=== PATIENT | male | born 1940 | race Caucasian/White ===

== ENCOUNTER 2019-05-02 14:22 | Inpatient (IN) | payer MEDICARE ==
[2019-05-02 15:42] LABS: Anion Gap 14 mmol/L (10-20); BUN (Urea Nitrogen) 41 mg/dL (8.4-25.7); Calc. Creatinine Clearance 0 mL/min (70-130); Calcium 9.3 mg/dL (7.8-10.44); Carbon Dioxide 29 mmol/L (23-31); Chloride 100 mmol/L (98-107); Estimated GFR-MDRD 35; Glucose 127 mg/dL (83-110); Sodium 139 mmol/L (136-145)
--- NOTE | 2019-05-02 15:54 | PDOC.HHP ---
Hospitalist HPI - History of Present Illness Syncope History of Present Illness: Patient is a 78 year old male with PMH CAD, CABG, paroxysmal atrial fibrillation on xarelto, systolic CHF chronic w/ EF 40%, CKD III, AVR w/ porcine valve for aortic stenosis and history of CVA, DM 2 on insulin pump w/ DM nephropathy, neuropathy and retinopathy who presented to ED as transfer from [facility] for syncope. Patient reports 2-3 times sudden syncope with variable prodrome in last few months. He was in the bathroom this AM and suddenly collapsed, does not remember episode and reports sometimes he loses consciousness during syncopal episodes and sometimes he does not. Today he believes he may have lost consciousness. No chest pain, no palpitations, denies shortness of breath around time of episode, he did vomit however. He has a history of orthostatic hypotension for 6 months or so but is usually asymptomatic, he reports has only begun to worsen last few days. He reports he has developed a global weakness over last 3-6 months which is getting so bad that he cannot even make it to the bathroom. Normally can get around with only using a walker, but gradually came to be walker dependant, and now walker is not stopping these episodes. No recent medication changes. He was admitted in January for possible seizure which was found to be hypoglycemia, he Had chemical stress test 2-3 years ago, and patient believes they were negative. He has atrial fibrillation, is on baby ASA and xarelto. Saw his heart doctor a few months ago, does not remember if had any testing, fell and broke pelvis before able to go back for follow up and hasnt seen since. Has insulin pump. Reports lower PO intake recently. Patient on xarelto and ASA for afib/valve replacement. Had diarrhea on Saturday x 1 episode. In ED in [place], troponin 0.4, Cr 2.32 which is above baseline. L hip XR without fractures performed for hip pain. Sugars in 180s this AM. CT brain unremarkable. Positive orthostatics in [facility]. EKG without acute ischemic changes. FOBT ordered for blood crusted stool reported by ED doc on conversation , no obvious large volume GI bleed observed. [facility] [place] physicians service consulted for admission. Outpatient doctors: Dr Watt cardiology, Dr Rose (sp?) diabetes doctor, Dr Couch is foot doctor. Recently had a callus debrided which has become a chronic wound managed by wound care. He reports frequent bleeding from that would and also from a wound on R arm which has a pressure dressing on. ED Course: EKG junctional rhythm rate 65 with retrograde conduction, incomplete RBBB, no acute ST findings Hospitalist ROS - Review of Systems Constitutional: reports: fever. denies: chills Eyes: denies: pain, vision change ENT: denies: nose discharge, throat pain Respiratory: denies: cough, shortness of breath Cardiovascular: denies: chest pain, palpitations, orthopnea Gastrointestinal: reports: nausea, vomiting. denies: abdominal pain Genitourinary: denies: dysuria, frequency Skin: denies: rash, lesions Neurological: reports: weakness. denies: numbness, incoordination, seizures All other systems reviewed; all pertinent +/- noted in HPI/Subj - Exam General Appearance: NAD, awake alert Eye: PERRL, anicteric sclera ENT: normocephalic atraumatic, moist mucosa Neck: supple, no JVD Heart: RRR, no murmur, no gallops, no rubs Respiratory: CTAB, no wheezes, no rales, no ronchi Gastrointestinal: soft, non-tender, non-distended, no guarding Extremities: no cyanosis, no clubbing, no edema Skin: no lesions, no rashes Neurological: cranial nerve grossly intact, normal sensation to touch, no weakness, no focal deficits Musculoskeletal: normal tone, generalized weakness Psychiatric: normal affect, normal behavior, A&O x 3 Hospitalist Results - Labs Result Diagrams: 05/02/19 15:11 Lab results: Sodium 139 mmol/L (136-145) 05/02/19 15:11 Potassium 4.0 mmol/L (3.5-5.1) 05/02/19 15:11 Chloride 100 mmol/L (98-107) 05/02/19 15:11 Carbon Dioxide 29 mmol/L (23-31) 05/02/19 15:11 BUN 41 mg/dL (8.4-25.7) H 05/02/19 15:11 Creatinine 1.85 mg/dL (0.7-1.3) H 05/02/19 15:11 Glucose 127 mg/dL (83-110) H 05/02/19 15:11 Calcium 9.3 mg/dL (7.8-10.44) 05/02/19 15:11 Hospitalist H&P A/P - Plan Plan: Patient is a 78 year old male with PMH CAD, CABG, paroxysmal atrial fibrillation on xarelto, systolic CHF chronic w/ EF 40%, CKD III, AVR w/ porcine valve for aortic stenosis and history of CVA, DM 2 on insulin pump w/ DM nephropathy, neuropathy and retinopathy who presented to ED as transfer from [facility] for syncope. # fall/syncope in setting of extensive cardaic history and chronic orthostatic hypotension - seems to have different types of syncope with frequent falls, some with a prodrome and some withoout, today no prodrome but witness to fall told patient he appeared awake and conscious the whole time. this seems a bit more likely symptomatic orthostasis/vasovagal syncope, however cardiac causes should be ruled out. - admit to telemetry, trend troponin, consult cardiology Dr Watt or covering physician - continue home meds as appropriate once med rec complete, ASA and statin continued now, eliquis to be changed to lovenox in case procedure needed - repeat orthostatics, consider florinef etc if cardiac workup negative # history of AVR - noted, consult cardiology, eliquis to be switched to lovenox # type 2 DM - start moderate dose SSI and 15 units lantus qHS (home dose is 20 units), increase as needed, would perhaps be better to stay away from insulin pump but if patient wants to use it can d/c SSI # MARIA TERESA on CKDIII - improved with IVF, trend BMP # history of CVA - noted, continue antiplatelet and anticoagulation, no focal deficits observed # diabetic foot wound - bleeding/oozing in ED, no signs of infection, consult wound care nursing # RUE wound - consult wound care nursing, put picture in chart when dressing changed # CAD - continue ASA and statin, resume rest as appropriate once med rec complete # atrial fibrillation - rate controlled, treat as above, EKG reported as junctional, cardiology consulted # possible GI bleed - monitor stool characteristics, PPI started, FOBT ordered in ED, GI consult may be needed if evidence here supports bleeding, paitent in ASA and anticoagulation # debility, worsening weakness - PT, OT, ST, nutrition consulted, case management consult in case therapy recommends SNF or rehab, follow up B12, TSH, other routine labs, UA ordered and pending code status - discussed with patient and son, son is a medical collections in [place]. continue full code, update family with significant information plan - admit to telemetry, consult cardiology, follow up orthostatics and other studies ordered, monotor for arrhtyhmia, hypoglycemia, BP abnormalities which may be worsening debility
[2019-05-02 16:14] LABS: CKMB 1.6 ng/mL (0-6.6)
[2019-05-02] MEDS ORDERED: Promethazine HCl 12.5 MG in Sodium Chloride 0.9% 50 ML IVPB PRN (16:19)
[2019-05-02] MEDS ORDERED: Morphine 2 MG/ML SYRINGE SLOW IVP PRN (16:19)
[2019-05-02] MEDS ORDERED: Ondansetron PF 4 MG/2 ML Vial IVP PRN (16:19)
[2019-05-02] MEDS ORDERED: hydrALAZINE 20 MG/ML VIAL SLOW IVP PRN (16:19)
[2019-05-02] MEDS ORDERED: cloNIDine 0.1 MG TAB PO PRN (16:19)
[2019-05-02] MEDS ORDERED: Acetaminophen 325 MG TAB PO PRN (16:21)
[2019-05-02] MEDS ORDERED: Bisacodyl 10 MG SUPP PR PRN (16:21)
[2019-05-02] MEDS ORDERED: Bisacodyl 5 MG TAB PO PRN (16:21)
[2019-05-02] MEDS ORDERED: HYDROcodone/Acetaminophen 5/325 mg Tablet PO PRN (16:21)
[2019-05-02] MEDS ORDERED: HumaLOG 300 UNITS/3 ML VIAL SC PRN (17:43)
[2019-05-02] MEDS ORDERED: Dextrose 50% Abboject 50 ML SYRINGE SLOW IVP PRN (17:43)
[2019-05-02] MEDS ORDERED: Dextrose 5% in Water 1,000 ML IV PRN (17:43)
[2019-05-02 18:49] LABS: Troponin I 0.012 ng/mL (< 0.028)
[2019-05-02] MEDS: Senokot S 8.6-50 MG TAB PO SCH (21:25)
[2019-05-02] MEDS: Gabapentin 300 MG CAP PO SCH (21:25)
[2019-05-02] MEDS: Atorvastatin Calcium 40 MG TAB PO SCH (21:25)
[2019-05-02] MEDS: Insulin Glargine 15 UNITS in Pre-Filled Syringe 1 EACH SC SCH (21:26)
[2019-05-02] MEDS ORDERED: Enoxaparin Sodium 80 MG/0.8 ML SYRINGE SC SCH (23:15)
[2019-05-02 23:19] LABS: Troponin I 0.012 ng/mL (< 0.028)
[2019-05-03 04:57] LABS: #Eosinphils 0.1 thou/uL (0.0-0.7); #Lymphocytes 1.5 thou/uL (1.20-3.40); #Monocytes 0.8 thou/uL (0.11-0.59); #Neutrophils 5.1 thou/uL (1.40-6.50); %Basophils 0.2 % (0.0-1.0); %Eosinophils 1.5 % (0.0-10.0); %Lymphocytes 19.8 % (21.0-51.0); %Monocytes 10.6 % (0.0-10.0); Hemoglobin 10.9 g/dL (14.0-18.0); Mean Corpuscular HGB CONC 33.7 g/dL (32.0-36.0); Mean Corpuscular Hemoglobin 32.4 pg (27.0-31.0); Mean Corpuscular Volume 96.1 fL (78.0-98.0); Mean Platelet Volume 7.7 fL (7.4-10.4); Platelet Count 150 thou/uL (130-400); Red Blood Cell (RBC) Count 3.37 mill/uL (4.70-6.10); White Blood Cell (WBC) Count 7.6 thou/uL (4.8-10.8)
[2019-05-03 05:04] LABS: Anion Gap 12 mmol/L (10-20); BUN (Urea Nitrogen) 39 mg/dL (8.4-25.7); Calc. Creatinine Clearance 37 mL/min (70-130); Calcium 8.9 mg/dL (7.8-10.44); Carbon Dioxide 27 mmol/L (23-31); Chloride 103 mmol/L (98-107); Estimated GFR-MDRD 39; Glucose 166 mg/dL (83-110); Magnesium 2.2 mg/dL (1.6-2.6); Sodium 138 mmol/L (136-145)
[2019-05-03 05:09] LABS: Troponin I 0.022 ng/mL (< 0.028)
[2019-05-03 05:30] LABS: Thyroid Stimulating Hormone 1.4956 uIU/mL (0.35-4.94)
[2019-05-03] MEDS ORDERED: Enoxaparin Sodium 80 MG/0.8 ML SYRINGE SC SCH (09:00)
[2019-05-03] MEDS: Aspirin 81 mg Enteric Coated Tablet PO SCH (09:13)
[2019-05-03] MEDS: Senokot S 8.6-50 MG TAB PO SCH ×2 (09:13→20:22)
[2019-05-03] MEDS: Gabapentin 300 MG CAP PO SCH ×2 (09:13→20:22)
[2019-05-03 12:52] LABS: Bacteria/HPF None Seen HPF (None Seen); Bilirubin Negative (Negative); Blood, Urine Negative (Negative); Clarity Clear (Clear); Glucose, Urine (Dipstick) Normal (Negative); Leukocyte Negative Leu/uL (Negative); Nitrite Negative (Negative); Protein, Urine (Dipstick) Negative (Neg-Trace); Squamous Epithelial 0-3 HPF (0-3); Urobilinogen Normal mg/dL (Less than 2); WBC/HPF 0-3 HPF (0-3)
[2019-05-03 12:57] LABS: Urine Culture Reflex No No
[2019-05-03] MEDS: Sodium Chloride 0.9% 1,000 ML IV SCH (15:10)
--- NOTE | 2019-05-03 17:09 | PDOC.HOSPP ---
- Subjective Encounter Date: 05/03/19 Encounter Time: 17:07 Subjective: Patient seen and examined for Syncope. No CP/SOB or palpitations. No new complaints. No overnight events - Objective Vital Signs & Weight: Vital Signs (12 hours) Temp Pulse Pulse Pulse Resp BP BP 05/03/19 10:26 67 75 110/62 88/54 L 05/03/19 08:00 99.2 F 69 16 BP Pulse Ox 05/03/19 10:26 05/03/19 08:00 113/57 L 97 Weight Weight 165 lb I&O: 05/02/19 05/03/19 05/04/19 06:59 06:59 06:59 Intake Total 690 Balance 690 Result Diagrams: 05/03/19 04:33 05/03/19 04:33 Additional Labs: Accuchecks 05/03/19 05/03/19 12:02 06:24 POC Glucose 99 142 H EKG Reviewed by me: Yes (Tele SR) Hospitalist ROS - Review of Systems Respiratory: denies: cough, dry, shortness of breath, hemoptysis, SOB with excertion, pleuritic pain, sputum, wheezing, other Cardiovascular: denies: chest pain, palpitations, orthopnea, paroxysmal noc. dyspnea, edema, light headedness, other - Medication Medications: Active Medications Generic Name Dose Route Start Last Admin Trade Name Rolando PRN Reason Stop Dose Admin Aspirin 81 mg 05/03/19 09:00 05/03/19 09:13 Ecotrin PO 81 mg DAILY ASHLY Administration Atorvastatin Calcium 40 mg 05/02/19 21:00 05/02/19 21:25 Lipitor PO 40 mg HS ASHLY Administration Gabapentin 300 mg 05/02/19 21:00 05/03/19 09:13 Neurontin PO 300 mg BID ASHLY Administration Insulin Glargine 15 units/ 0.15 mls @ 0 mls/hr 05/02/19 21:00 05/02/19 21:26 Miscellaneous Medication SC Not Given HS ASHLY Sodium Chloride 1,000 mls @ 50 mls/hr 05/03/19 14:15 05/03/19 15:10 Normal Saline 0.9% IV 1,000 mls .Q20H ASHLY Administration Pantoprazole Sodium 40 mg 05/03/19 09:00 05/03/19 09:13 Protonix PO 40 mg DAILY ASHLY Administration Senna/Docusate Sodium 1 tab 05/02/19 21:00 05/03/19 09:13 Senokot S PO 1 tab BID ASHLY Administration - Exam General Appearance: NAD Neck: no JVD Heart: RRR, no gallops, no rubs, normal peripheral pulses Respiratory: CTAB, no rales, no ronchi, normal chest expansion Gastrointestinal: soft, non-tender, non-distended, normal bowel sounds Extremities: no edema Psychiatric: normal affect, A&O x 3 Hosp A/P - Plan DVT proph w/lovenox Syncope/fall due to Orthostatic hypotension MARIA TERESA on CKD 3 Chronic Anemia Type 2 GA DM2 - on Insulin pump h/o Diabetic neuropathy/nephropathy/retinopathy CAD Par Afib - on Xarelto at home h/o porcine AVR PLAN: Amlodipine dced Hold Coreg Await Echo/Carotid Gentle IV hydration Reduce Lovenox to daily Add Midodrine Updated son (Narcotics Detective) - [phone]
[2019-05-03] MEDS: Midodrine HCl 5 MG TAB PO SCH (20:22)
[2019-05-03] MEDS: Atorvastatin Calcium 40 MG TAB PO SCH (20:22)
--- NOTE | 2019-05-03 21:10 | CON ---
DATE OF CONSULTATION: PRIMARY CARE PHYSICIAN: Unknown. This patient is seen by Dr. Scruggs in the past. PRIMARY CITY MAIL CARRIER: Dr. Watt. SOCIETY REPORTER: Dr. York. ARCHIVES SPECIALIST: Dr. Couch. REASON FOR CARDIOLOGY CONSULT: Syncopal episode and elevated troponin. HISTORY OF PRESENT ILLNESS: Mr. Barnes is a 78-year-old male with significant history of coronary artery disease with CABG; paroxysmal atrial fibrillation, on Xarelto; chronic systolic heart failure with EF 40%; stage 3 CKD; AVR with porcine valve for aortic valve stenosis; history of CVA, type 2 diabetes with insulin pump and diabetes nephropathy and neuropathy and retinopathy. The patient presented to the emergency department for status post syncopal episode in the bathroom around 7 o'clock this morning. When he went to bathroom after that he cannot recall at all the event. He had previous syncopal episode in January 2019 in the bathroom, he fell, and he broke his right pelvic. According to the patient, he has a syncopal episode or near-syncopal episode at least every 2 or 3 weeks. However, he has not seen any supplies packer or his primary care doctor for the reason. Prior to this event, he denied chest pain, heaviness, tightness, dizziness, lightheadedness, or any other cardiac complaints. He has insulin-dependent diabetes. His blood glucose has been 50 to 200. According to patient, the patient had a stress test done by the patient's primary supplies packer about 2 or 3 years ago, which was negative per patient. He has been on Xarelto and aspirin for history of atrial fibrillation. At this moment, the patient denies any chest pain, heaviness, tightness, or any other cardiac complaints. The patient has had echocardiogram done today with EF of 45% to 50%, grade 1 diastolic dysfunction, moderate ERA, mild mitral valve regurgitation, moderate to severe tricuspid regurgitation, and mild pulmonic regurgitation, and moderately dilated left atrium. PATIENT MEDICAL HISTORY: 1. Paroxysmal atrial fibrillation with Xarelto. 2. Systolic heart failure. 3. CKD, stage 3. 4. Status post AVR with porcine valve. 5. History of CVA. 6. Insulin-dependent diabetes. 7. Diabetes nephropathy, neuropathy, and retinopathy. 8. History of CAD, status post CABG. PAST SURGICAL HISTORY: CABG and aortic valve replacement. FAMILY HISTORY: Noncontributory. SOCIAL HISTORY: He is a . He is living in assisted living. He uses a walker; however, since January, he was getting weaker. He has not moved around well. He has 2 children, who live well. He denies EtOH, tobacco, or illicit drug abuse. He drinks 2 cups of coffee. He does not do exercise. ALLERGIES: HE IS ALLERGIC TO SULFA AND PREDNISONE. HOME MEDICATIONS: 1. Aspirin 81 mg once a day. 2. Lasix 60 mg once a day. 3. Amlodipine 5 mg once a day. 4. Multivitamin once a day. 5. Glucosamine 500 mg once a day. 6. Biotin 2500 mcg once a day. 7. Humalog, insulin pump. 8. Xarelto 15 mg once a day. 9. Tylenol 650 mg every 6 hours as needed. 10. Atorvastatin 40 mg once a day. 11. Spironolactone 12.5 mg once a day. 12. Zofran 4 mg every 6 hours. 13. Colace 250 as needed. 14. Carvedilol 3.125 mg twice a day. 15. CoQ10 100 mg once a day. 16. Magnesium 500 mg once a day. 17. Lantus 60 units at night. REVIEW OF SYSTEMS: Twelve-point review of systems negative unless otherwise mentioned in the HPI. PHYSICAL EXAMINATION: VITAL SIGNS: Blood pressure 88/54, temperature 99.2, pulse is 69, respiratory rate 16, O2 saturation 97% on room air. GENERAL: The patient is alert and oriented x4, not in acute distress. HEENT: Head, normocephalic and atraumatic. EYES: Extraocular muscle movement intact. ENT and mouth, oral and nasal mucosa moist without lesion. NECK: Supple. Normal range of motion. No JVD. RESPIRATORY: Clear to auscultate bilaterally, but diminished at the bases. No wheezing, rales, or rhonchi. CARDIOVASCULAR: Regular rate and rhythm. Normal S1 and S2. There is no S3 or S4. No significant murmur or hives are noted. 2+ pulses in the bilateral upper and lower extremities. No edema in the lower extremities. Carotid pulses are present without bruit or thrill. ABDOMEN: Soft, nontender. No mass to palpitate. Bowel sounds are present. SKIN: Warm and dry. No lesion, rash, or erythema noted. MUSCULOSKELETAL: The patient is able to move all extremities without difficulty in the bed. The patient denies claudication. NEUROLOGIC: The patient is alert and oriented x4, nonfocal. PSYCHIATRIC: The patient's mood is appropriate. PAST MEDICAL AND SURGICAL HISTORY: 12-lead EKG shows sinus rhythm. However, on the telemetry record, questionable type 1 or type 2 second-degree AV block. WBC 7.6, hemoglobin 10.9, hematocrit 32.4, platelets 150. Sodium 138, potassium 4, BUN 39, creatinine 1.70, glucose 166, magnesium 2.2. CK-MB is 1.6. Troponin is 0.039, 0.012, and 0.022. TSH 1.4956. Vitamin B12 600. Brain CT shows no evidence of intracranial hemorrhage or mass effect. Hip x-ray shows degenerative change, but no displacement fracture at this location. ASSESSMENT AND PLAN: 1. Status post syncopal episode. The patient's telemetry record shows questionable type 1 or type 2 second-degree AV block. We would like to continue to monitor, and if the patient shows any significant EKG change, which indicated to the patient possibly the patient is going to have a pacemaker during this hospital admission. We would like to continue to monitor on the telemetry. 2. Coronary artery disease, status post coronary artery bypass graft. He is asymptomatic at this moment. The patient is on aspirin 81 mg once a day and atorvastatin. He is not on beta john at this moment due to low heart rate, and he is not on ASMITA inhibitor at this moment due to history of chronic kidney disease. Once the patient's vital signs become stable, possible beta john is going to be started. 3. Paroxysmal atrial fibrillation. He is in sinus rhythm at this moment. He is on aspirin 81 mg once a day. He is not on Xarelto at this moment due to status post fall. He is on Lovenox twice a day at this moment. 4. Chronic systolic heart failure with ejection fraction 45% to 50%. The patient's condition is stable at this moment with room air. We would like to continue to monitor. He is not on diuretic, beta-john, ASMITA inhibitor, or ARB at this moment. 5. Insulin-dependent diabetes. He is on before meals and at bedtime blood glucose check with sliding scale insulin. 6. History of cerebrovascular accident. 7. Aortic valve replacement. 8. Chronic kidney disease, stage 3, which is stable at this moment. Thank you very much for Cardiology Service to participate in the care of this patient. We will follow along the patient's care team and make further recommendations as appropriate. Job ID: [id number]
[2019-05-03] MEDS: Insulin Glargine 15 UNITS in Pre-Filled Syringe 1 EACH SC SCH (23:55)
--- NOTE | 2019-05-04 01:08 | CON ---
DATE OF CONSULTATION: 05/03/2019 REASON FOR CONSULTATION: Incomplete bladder emptying. HISTORY: Mr. Barnes is a 78-year-old gentleman with significant coronary artery disease and cardiac disease including prior coronary artery bypass graft, paroxysmal atrial fibrillation, and aortic valve replacement with porcine valve. He has been having problems with syncopal episodes. He was admitted to the hospital after having a syncopal episode in the bathroom on the day of admission, 05/02/2019. During his hospitalization, he has been noted to have incomplete bladder emptying. Bladder scan after voiding is demonstrated approximately 300 mL in the bladder. The patient denies any chronic urologic problem. He states he normally voids well. He does state that he can only void well when he is sitting on the toilet. He denies pain on urination. Denies any hematuria. Denies any prior urologic history. He has not seen urologist in the past. He does have insulin-dependent diabetes. PAST MEDICAL HISTORY: Coronary artery disease, aortic valve disease, insulin-dependent diabetes mellitus, chronic kidney disease, diabetic foot wound, atrial fibrillation, syncopal episodes. PAST SURGICAL HISTORY: Coronary artery bypass graft and aortic valve replacement. SOCIAL HISTORY: He lives in assisted living facility. He typically uses a walker, although, this has been more difficult recently. Denies alcohol or drug use. His son is a ice hockey coach in [place]. ALLERGIES: SULFA AND PREDNISONE. MEDICATIONS: At home, 1. Aspirin. 2. Lasix. 3. Amlodipine. 4. Multivitamins. 5. Glucosamine. 6. Biotin. 7. Humalog. 8. Xarelto. 9. Tylenol. 10. Atorvastatin. 11. Spironolactone. 12. Zofran. 13. Colace. 14. Carvedilol. 15. CoQ10. 16. Magnesium. 17. Lantus insulin at night. REVIEW OF SYSTEMS: RESPIRATORY: Denies shortness of breath. CARDIOVASCULAR: Denies chest pain or palpitations. GASTROINTESTINAL: He does have occasional constipation. Denies bloody stools. GENITOURINARY: Please see history of present illness. NEUROLOGIC: History of stroke in the past. No recent stroke symptoms. PHYSICAL EXAMINATION: GENERAL: He is awake and alert, in no distress at this time. HEENT: Normocephalic, atraumatic. NECK: No masses noted. CHEST: Clear to auscultation. CARDIOVASCULAR: Normal rhythm. ABDOMEN: Soft, nontender. No palpable masses. No peritoneal signs. GENITOURINARY: Penis without lesions. Scrotum, no lesions. Testicles, palpably normal. Digital rectal exam, the patient refused. EXTREMITIES: No edema noted. IMPRESSION: Mr. Barnes is a 78-year-old gentleman with a significant cardiac history. He was noted to have incomplete bladder emptying on postvoid residual determination by ultrasound today. I have discussed with him the Lala catheter to improve bladder emptying. He has flatly refused to allow a Lala catheter to be replaced. He is in no significant discomfort and denies any bothersome urinary symptoms at this time. He may have chronic incomplete bladder emptying accounting for his lack of symptoms at this time. Regardless, the patient refuses a Lala catheter and he is not a good candidate for alpha blockers based on a syncopal episodes. RECOMMENDATIONS: If the patient develops retention, I requested Lala catheter will be placed. Otherwise, he has refused Lala catheterization despite my recommendation. Job ID: [id number]
[2019-05-04 04:52] LABS: #Eosinphils 0.2 thou/uL (0.0-0.7); #Lymphocytes 1.7 thou/uL (1.20-3.40); #Monocytes 0.6 thou/uL (0.11-0.59); %Basophils 0.5 % (0.0-1.0); %Eosinophils 3.1 % (0.0-10.0); %Lymphocytes 26.1 % (21.0-51.0); %Monocytes 9.5 % (0.0-10.0); %Neutrophils 60.8 % (42.0-75.0); Hemoglobin 10.5 g/dL (14.0-18.0); Mean Corpuscular HGB CONC 32.7 g/dL (32.0-36.0); Mean Corpuscular Hemoglobin 32.2 pg (27.0-31.0); Mean Corpuscular Volume 98.7 fL (78.0-98.0); Mean Platelet Volume 8.9 fL (7.4-10.4); Platelet Count 125 thou/uL (130-400); RBC Distribution Width 12.1 % (11.5-14.5); Red Blood Cell (RBC) Count 3.27 mill/uL (4.70-6.10); White Blood Cell (WBC) Count 6.6 thou/uL (4.8-10.8)
[2019-05-04 05:02] LABS: Anion Gap 9 mmol/L (10-20); BUN (Urea Nitrogen) 35 mg/dL (8.4-25.7); Calc. Creatinine Clearance 40 mL/min (70-130); Calcium 8.4 mg/dL (7.8-10.44); Carbon Dioxide 27 mmol/L (23-31); Chloride 108 mmol/L (98-107); Estimated GFR-MDRD 41; Glucose 101 mg/dL (83-110); Magnesium 2.1 mg/dL (1.6-2.6); Potassium 3.8 mmol/L (3.5-5.1); Sodium 140 mmol/L (136-145)
--- NOTE | 2019-05-04 09:02 | PDOC.HOSPP ---
- Subjective Encounter Date: 05/04/19 Encounter Time: 09:00 Subjective: Patient seen and examined for Syncope. Aury huerta was called due to syncope while having a BM on commode. Hit left side on head on wall. No other injuries. Awake at this time. No new complaints. No overnight events - Objective Vital Signs & Weight: Vital Signs (12 hours) Temp Pulse Resp BP BP BP BP 05/04/19 05:15 93/50 L 89/43 L 132/65 05/04/19 03:40 98.6 F 68 18 122/62 Pulse Ox 05/04/19 05:15 05/04/19 03:40 97 Weight Weight 168 lb 12.8 oz I&O: 05/03/19 05/04/19 05/05/19 06:59 06:59 06:59 Intake Total 690 2960 Output Total 450 Balance 690 2510 Result Diagrams: 05/04/19 04:07 05/04/19 04:07 Additional Labs: Accuchecks 05/04/19 05/04/19 05/03/19 08:53 05:18 20:50 POC Glucose 120 H 90 167 H 05/03/19 05/03/19 18:06 12:02 POC Glucose 154 H 99 EKG Reviewed by me: Yes (Tele SR) Hospitalist ROS - Review of Systems Respiratory: denies: cough, dry, shortness of breath, hemoptysis, SOB with excertion, pleuritic pain, sputum, wheezing, other Cardiovascular: denies: chest pain, palpitations, orthopnea, paroxysmal noc. dyspnea, edema, light headedness, other - Medication Medications: Active Medications Generic Name Dose Route Start Last Admin Trade Name Rolando PRN Reason Stop Dose Admin Aspirin 81 mg 05/03/19 09:00 05/03/19 09:13 Ecotrin PO 81 mg DAILY ASHLY Administration Atorvastatin Calcium 40 mg 05/02/19 21:00 05/03/19 20:22 Lipitor PO 40 mg HS ASHLY Administration Gabapentin 300 mg 05/02/19 21:00 05/03/19 20:22 Neurontin PO 300 mg BID ASHLY Administration Insulin Glargine 15 units/ 0.15 mls @ 0 mls/hr 05/02/19 21:00 05/03/19 23:55 Miscellaneous Medication SC Not Given HS ASHLY Sodium Chloride 1,000 mls @ 50 mls/hr 05/03/19 14:15 05/03/19 15:10 Normal Saline 0.9% IV 1,000 mls .Q20H ASHLY Administration Midodrine 5 mg 05/03/19 21:00 05/03/19 20:22 Proamatine PO 5 mg BID ASHLY Administration Pantoprazole Sodium 40 mg 05/03/19 09:00 05/03/19 09:13 Protonix PO 40 mg DAILY ASHLY Administration Senna/Docusate Sodium 1 tab 05/02/19 21:00 05/03/19 20:22 Senokot S PO 1 tab BID ASHLY Administration - Exam General Appearance: NAD, awake alert Neck: no JVD Heart: RRR, no gallops, no rubs, normal peripheral pulses Respiratory: CTAB, no wheezes, no rales, no ronchi Gastrointestinal: soft, non-tender, non-distended, normal bowel sounds Extremities: no cyanosis, no clubbing, no edema Neurological: normal sensation to touch, no focal deficits, no new deficit Psychiatric: normal affect, A&O x 3 Hosp A/P - Plan DVT proph w/lovenox Syncope/fall due to Orthostatic hypotension - Amlodipine dced. Started on Midodrine Code green due to syncope today MARIA TERESA on CKD 3 - improving with IVF Chronic Anemia Thrombocytopenia Type 2 [place] DM2 - on Insulin pump h/o Diabetic neuropathy/nephropathy/retinopathy CAD Par Afib - on Xarelto at home h/o porcine AVR PLAN: Coreg on hold Echo EF 45-50% with diastolic dysfunction Await Carotid Gentle IV hydration Cont Lovenox daily Cont Midodrine Will update Patient's son (Vice President Of Software Engineering) - [phone]
[2019-05-04] MEDS: Aspirin 81 mg Enteric Coated Tablet PO SCH (09:19)
[2019-05-04] MEDS: Enoxaparin Sodium 80 MG/0.8 ML SYRINGE SC SCH (09:19)
[2019-05-04] MEDS: Midodrine HCl 5 MG TAB PO SCH ×2 (09:20→20:25)
[2019-05-04] MEDS: Senokot S 8.6-50 MG TAB PO SCH ×2 (09:20→20:25)
[2019-05-04] MEDS: Gabapentin 300 MG CAP PO SCH ×2 (09:20→20:25)
[2019-05-04] MEDS: Sodium Chloride 0.9% 1,000 ML IV SCH (09:21)
--- NOTE | 2019-05-04 10:24 | ULT ---
BILATERAL CAROTID DUPLEX ULTRASOUND: Date: 05/04/19 HISTORY: Syncope. FINDINGS: Real-time color Doppler evaluation of the right and left carotid systems was performed. This showed s ome mild plaque formation on the right, slightly more prominent plaque at the origin of the left inte rnal carotid artery. On the right side, peak systolic velocities of the common carotid were 70 cm/second. Internal carotid velocities were 111 cm/second and external carotid velocities were 49 cm/second. On the left side, peak systolic velocities of the common carotid were 87 cm/second. Internal carotid velocities were 78 cm/second and external carotid velocities were 73 cm/second. Vertebral flow was antegrade bilaterally. IMPRESSION: No evidence of hemodynamically significant stenosis of either internal carotid artery. POS: NAN
--- NOTE | 2019-05-04 10:52 | CT ---
CT BRAIN NONCONTRAST: DATE: 05/04/2019. HISTORY: A 78-year-old male status post acute head trauma from fall. FINDINGS: There is no midline shift or any other mass effect. There is no evidence of acute intracranial hemor rhage, large cortical infarct, obstructive hydrocephalus, or extraaxial fluid collection. The calvar ium is intact. There is diffuse parenchymal volume loss. There are low attenuation areas in the whi te matter. These are nonspecific, but in a patient of this age, they are probably chronic ischemic w byron matter changes due to microvascular atherosclerosis. There are small bilateral old infarctions in the cerebellar hemispheres. There is no interval change overall since 05/02/2019. IMPRESSION: 1) No acute intracranial findings. 2) Involutional changes and chronic ischemic white matter changes. 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 margaret Pang POS: NAN
--- NOTE | 2019-05-04 12:18 | CON ---
DATE OF CONSULTATION: 05/03/2019 ADDENDUM: Please refer to the notes already dictated by my nurse practitioner, Kendal Velasquez. INDICATION FOR CONSULTATION: A 78-year-old with multiple syncopal episodes. HISTORY OF PRESENT ILLNESS: This 78-year-old gentleman, who has a history of coronary artery disease, bypass surgery. He has history of atrial fibrillation in the past. He has been on Xarelto, also has an ejection fraction about 40% to 45% with chronic kidney disease. He has undergone aortic valve replacement. He has had CVAs in the past. He also has insulin, he is on insulin pump. He has had multiple medical problems, but recently has been falling apparently and had syncopal episodes. He has had some abrasions and some lacerations due to the falls. He says in the last couple months, he has fallen several times. His EKG shows a possible second-degree heart block type 1, at times might appears almost to be second degree heart block type 2, but in view of the fact that the patient continues to have symptoms with even if it was second degree heart block type 1, he may need to undergo pacemaker insertion. I did discuss this with the patient and he says if it will help him, then he is agreeable. We will continue to monitor him overnight. We will make that decision tomorrow whether or not he actually needs to have a pacemaker. He has been followed in the past by Dr. Scruggs, but also recently he has been seen by Dr. Jadiel Watt, [facility]. In the emergency room, he did have EKGs, which appeared to be a junctional rhythm with a heart rate in the 60s, but no acute ST-segment changes noted. I believe otherwise, he has been relatively stable from a cardiac standpoint. His laboratory data does not give any indication that he has suffered a myocardial infarction. Cardiac enzymes are unremarkable. His first set was 0.039, but since that time, his cardiac enzymes have been completely unremarkable. His creatinine is 1.7 with a BUN of 39. He did not have any evidence of severe anemia, but is moderately anemic with a hemoglobin of 10.9. At this time, please refer the notes. I have discussed this patient with my nurse practitioner. I would agree with the assessment and plan. 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 Given that fact, he may need certainly to undergo pacing therapy, but given his ejection fraction has decreased, we may need to consider a Bi-V pacemaker in this gentleman. Certainly, we will need to discuss this with Dr. Scruggs tomorrow morning and the patient may opt to also follow up with his primary solar pv installer, Dr. Watt for further evaluation. I would agree with the assessment and plan by my nurse practitioner. I have reviewed her notes and I will agree with her assessment. Job ID: [id number]
[2019-05-04] MEDS: HumaLOG 300 UNITS/3 ML VIAL SC PRN ×2 (18:22→21:29)
[2019-05-04 18:31] VITALS: BMI 26.3
[2019-05-04] MEDS: Atorvastatin Calcium 40 MG TAB PO SCH (20:25)
[2019-05-04] MEDS: Insulin Glargine 15 UNITS in Pre-Filled Syringe 1 EACH SC SCH (21:28)
[2019-05-05 04:33] LABS: #Eosinphils 0.2 thou/uL (0.0-0.7); #Lymphocytes 1.5 thou/uL (1.20-3.40); #Monocytes 0.6 thou/uL (0.11-0.59); #Neutrophils 4.4 thou/uL (1.40-6.50); %Basophils 0.2 % (0.0-1.0); %Eosinophils 2.6 % (0.0-10.0); %Monocytes 9.4 % (0.0-10.0); %Neutrophils 64.8 % (42.0-75.0); Hemoglobin 9.8 g/dL (14.0-18.0); Mean Corpuscular HGB CONC 33.8 g/dL (32.0-36.0); Mean Corpuscular Hemoglobin 32.7 pg (27.0-31.0); Mean Corpuscular Volume 96.5 fL (78.0-98.0); Mean Platelet Volume 7.2 fL (7.4-10.4); Platelet Count 147 thou/uL (130-400); RBC Distribution Width 11.9 % (11.5-14.5); Red Blood Cell (RBC) Count 2.99 mill/uL (4.70-6.10); White Blood Cell (WBC) Count 6.7 thou/uL (4.8-10.8)
[2019-05-05 04:48] LABS: Anion Gap 9 mmol/L (10-20); BUN (Urea Nitrogen) 31 mg/dL (8.4-25.7); Calc. Creatinine Clearance 44 mL/min (70-130); Calcium 8.4 mg/dL (7.8-10.44); Carbon Dioxide 25 mmol/L (23-31); Chloride 107 mmol/L (98-107); Estimated GFR-MDRD 46; Glucose 197 mg/dL (83-110); Magnesium 1.9 mg/dL (1.6-2.6); Potassium 4.2 mmol/L (3.5-5.1); Sodium 137 mmol/L (136-145)
[2019-05-05] MEDS: Aspirin 81 mg Enteric Coated Tablet PO SCH (09:42)
[2019-05-05] MEDS: Midodrine HCl 5 MG TAB PO SCH (09:43)
[2019-05-05] MEDS: Senokot S 8.6-50 MG TAB PO SCH ×2 (09:44→21:52)
[2019-05-05] MEDS: Gabapentin 300 MG CAP PO SCH ×2 (09:44→21:52)
[2019-05-05] MEDS: Enoxaparin Sodium 80 MG/0.8 ML SYRINGE SC SCH (09:45)
[2019-05-05] MEDS: HumaLOG 300 UNITS/3 ML VIAL SC PRN ×2 (12:13→21:50)
--- NOTE | 2019-05-05 13:06 | PRG ---
DATE OF SERVICE: 05/05/2019 SUBJECTIVE: The patient is seen and examined at the bedside. He seems to be doing significantly better. He does not have much complaints to offer, except for the fact that when he gets up, his blood pressure drops. OBJECTIVE: VITAL SIGNS: Blood pressure is 171/72, pulse is 74, temperature is 98.3, respirations 20, and O2 saturation is 98% on room air. HEENT: His head is atraumatic and normocephalic. Eyes are PERRLA. Sclerae are nonicteric. Oral mucosa is moist. NECK: Supple. LUNGS: Clear. HEART: S1, S2, somewhat irregular. No S3. No S4. ABDOMEN: Soft, nontender, nondistended. EXTREMITIES: No clubbing, cyanosis, or edema. NEUROLOGICAL EXAMINATION: He is alert and oriented x4. There are no any motor or sensory deficits. LABORATORY DATA: White count of 6.7, hemoglobin 9.8, hematocrit 28.8, platelet count is 147. Normal electrolytes. BUN of 31, creatinine 1.48. Glycemia is ranging from 185 to 333, magnesium 1.9. Previous creatinine 1.63 and 1.7. IMPRESSION: 1. Syncopal episode due to orthostatic hypotension. This seems to be doing somewhat better on midodrine. Cardiology following. 2. Acute kidney injury on chronic kidney disease 3, with gentle hydration. 3. Chronic anemia. 4. Type 2 diabetes mellitus, uncontrolled. We will start him on 16 units of long-acting insulin with short-acting insulin before meals. His insulin pump is stopped. 5. Coronary artery disease, chronic, stable. 6. Paroxysmal atrial fibrillation. PLAN: Continue gentle hydration. Sales Recruiter does not think he needs any pacemaker at this point. We will continue his current regimen. His other medications are on hold. We will give him 16 units of long-acting insulin and since his blood pressure is up, I am going to stop his midodrine and start him back on carvedilol. Job ID: [id number]
[2019-05-05] MEDS ORDERED: Non-Formulary Item 1 EACH (Insulin Glargine,Hum.Rec.Anlog [Lantus Solostar] 16 UNIT) SC SCH (21:00)
[2019-05-05] MEDS: Insulin Glargine 16 UNITS in Pre-Filled Syringe 1 EACH SC SCH (21:50)
[2019-05-05] MEDS: Carvedilol 3.125 MG TAB PO SCH (21:52)
[2019-05-05] MEDS: Atorvastatin Calcium 40 MG TAB PO SCH (21:52)
[2019-05-06] MEDS: Carvedilol 3.125 MG TAB PO SCH (09:00)
[2019-05-06] MEDS: Senokot S 8.6-50 MG TAB PO SCH ×2 (09:00→21:20)
[2019-05-06] MEDS: Enoxaparin Sodium 80 MG/0.8 ML SYRINGE SC SCH (09:00)
[2019-05-06] MEDS: Gabapentin 300 MG CAP PO SCH ×2 (09:00→21:19)
[2019-05-06] MEDS: Aspirin 81 mg Enteric Coated Tablet PO SCH (09:00)
[2019-05-06] MEDS: HumaLOG 300 UNITS/3 ML VIAL SC PRN ×2 (13:39→18:09)
--- NOTE | 2019-05-06 14:16 | PRG ---
DATE OF SERVICE: 05/06/2019 SUBJECTIVE: The patient is seen and examined at the bedside. He does not have much complaints to offer except for blood pressure drops when he stands up and he feels dizzy. No chest pain. No shortness of breath. OBJECTIVE: VITAL SIGNS: Blood pressure is 100/55, pulse is 69, temperature is 97.7, respirations 16, and O2 saturation is 97% on room air. HEENT: His head is atraumatic and normocephalic. Eyes are PERRLA. Sclerae are nonicteric. Oral mucosa is moist. NECK: Supple. LUNGS: Breath sounds are diminished at both bases. HEART: S1 and S2 normal. No S3. No S4. ABDOMEN: Soft, nontender, and obese. EXTREMITIES: No clubbing, cyanosis, or edema. NEUROLOGIC: He follows my commands. He moves his all 4 extremities. His orthostatic changes, the patient drops to 86 systolic when he is standing up from 108/55. IMPRESSION AND PLAN: 1. Syncopal episode due to orthostatic hypotension. Midodrine was stopped. 2. Hypertension. The patient's Coreg was started this morning because of his blood pressure going up, but again, he has quite significant response and Coreg will be stopped completely. We will continue IV gentle hydration. 3. Acute kidney injury on chronic kidney disease, stage 3. 4. Chronic anemia. 5. Type 2 diabetes mellitus. The patient is started on 16 units of long-acting insulin and his glycemia is somewhat better today, we will continue that. Job ID: [id number]
[2019-05-06] MEDS: Sodium Chloride 0.9% 1,000 ML IV SCH ×4 (18:32→23:14)
[2019-05-06] MEDS: Atorvastatin Calcium 40 MG TAB PO SCH (21:19)
[2019-05-06] MEDS: Insulin Glargine 16 UNITS in Pre-Filled Syringe 1 EACH SC SCH (21:21)
[2019-05-07] MEDS: Senokot S 8.6-50 MG TAB PO SCH ×2 (09:18→20:29)
[2019-05-07] MEDS: Enoxaparin Sodium 80 MG/0.8 ML SYRINGE SC SCH (09:18)
[2019-05-07] MEDS: Gabapentin 300 MG CAP PO SCH ×2 (09:18→20:29)
[2019-05-07] MEDS: Aspirin 81 mg Enteric Coated Tablet PO SCH (09:18)
[2019-05-07 09:41] LABS: Chloride 112 mmol/L (98-107); Potassium 4.1 mmol/L (3.5-5.1); Sodium 140 mmol/L (136-145)
[2019-05-07 09:42] LABS: Calcium 8.2 mg/dL (7.8-10.44); Glucose 162 mg/dL (83-110)
[2019-05-07 09:44] LABS: Anion Gap 7 mmol/L (10-20); Carbon Dioxide 25 mmol/L (23-31)
[2019-05-07 09:45] LABS: Calc. Creatinine Clearance 54 mL/min (70-130); Estimated GFR-MDRD 56
[2019-05-07 09:46] LABS: BUN (Urea Nitrogen) 26 mg/dL (8.4-25.7)
[2019-05-07] MEDS: HumaLOG 300 UNITS/3 ML VIAL SC PRN ×2 (11:58→20:37)
--- NOTE | 2019-05-07 13:32 | PRG ---
DATE OF SERVICE: 05/07/2019 SUBJECTIVE: The patient is seen and examined at the bedside. He does not have much complaints to offer. OBJECTIVE: VITAL SIGNS: Blood pressure is 148/66, it drops to 95 systolic when he stands up. Temperature is 98.4, respirations 16, pulse is 87, O2 saturation is 97% on room air. HEENT: His head is atraumatic and normocephalic. Eyes are PERRLA. Sclerae are nonicteric. Oral mucosa is moist. LUNGS: Left lung decreased breath sounds from the bottom to two thirds, suspected fluid on this side. HEART: S1, S2, somewhat distant. No S3. No S4. ABDOMEN: Soft, nontender, nondistended. EXTREMITIES: 2+ peripheral edema. NEUROLOGICAL: He follows my commands. He moves all 4 extremities. LABORATORY DATA: Sodium 140, potassium 4.1, chloride 112, CO2 of 25, BUN 26, creatinine 1.24. Glycemia is ranging from 193-287. Calcium 8.2. IMPRESSION: 1. Syncopal episode due to orthostatic hypotension. The patient is still orthostatic despite of IV fluids we gave him. I am going to stop IV fluids. We will do the chest x-ray since his left lung sounds are very diminished. 2. Hypertension. The Coreg was stopped because the blood pressure improved and it stays in relatively good range when he is in sitting position or flat position. 3. Acute kidney injury on chronic kidney disease stage 3, improved. 4. Chronic anemia. 5. Type 2 diabetes mellitus, not controlled despite putting back on 16 units of long-acting insulin. He is still running above 200s most of the time. PLAN: Go up on his insulin to 25 units of long-acting insulin along with the sliding scale and short-acting insulin. Stop IV fluids and do chest x-ray. Job ID: [id number]
--- NOTE | 2019-05-07 13:54 | RAD ---
Portable chest: HISTORY: Decreased breath sounds on the left COMPARISON: 05/02/2019 FINDINGS:Left basilar opacification consistent with left effusion and left basilar atelectasis again noted. Postop changes in the left chest again noted. Right lung remains clear and unchanged. Postop sternotomy changes again noted. IMPRESSION:Left-sided effusion with left basilar atelectasis and postoperative changes in left chest. Findings appear stable.
[2019-05-07] MEDS: Atorvastatin Calcium 40 MG TAB PO SCH (20:29)
[2019-05-07] MEDS: Insulin Glargine 16 UNITS in Pre-Filled Syringe 1 EACH SC SCH (20:35)
[2019-05-08 04:37] LABS: Anion Gap 7 mmol/L (10-20); BUN (Urea Nitrogen) 24 mg/dL (8.4-25.7); Calc. Creatinine Clearance 51 mL/min (70-130); Calcium 8.7 mg/dL (7.8-10.44); Carbon Dioxide 28 mmol/L (23-31); Chloride 108 mmol/L (98-107); Estimated GFR-MDRD 52; Glucose 136 mg/dL (83-110); Potassium 3.9 mmol/L (3.5-5.1); Sodium 139 mmol/L (136-145)
[2019-05-08] MEDS: Senokot S 8.6-50 MG TAB PO SCH ×2 (09:07→20:56)
[2019-05-08] MEDS: Aspirin 81 mg Enteric Coated Tablet PO SCH (09:07)
[2019-05-08] MEDS: Gabapentin 300 MG CAP PO SCH ×2 (09:07→20:57)
[2019-05-08] MEDS: Enoxaparin Sodium 80 MG/0.8 ML SYRINGE SC SCH (09:07)
[2019-05-08] MEDS: HumaLOG 300 UNITS/3 ML VIAL SC PRN ×2 (10:50→17:34)
--- NOTE | 2019-05-08 11:36 | PRG ---
DATE OF SERVICE: 05/08/2019 SUBJECTIVE: The patient is seen and examined at bedside. He got his JONI hoses last night and he had orthostatic blood pressure checked and he still drops approximately 40 points when he gets from lying flat to standing position, but he is asymptomatic. OBJECTIVE: VITAL SIGNS: Blood pressure is 142/90, pulse is 84, temperature is 98, respirations 18, O2 saturation is 98% on room air. HEENT: His head is atraumatic and normocephalic. Eyes are PERRLA. Sclerae are nonicteric. Oral mucosa is moist. NECK: Supple. LUNGS: Breath sounds diminished at the left base. HEART: S1 and S2 normal. No S3. No S4. ABDOMEN: Soft, nontender, nondistended. EXTREMITIES: No clubbing, cyanosis, or edema. NEUROLOGIC: He follows my commands. He has some peripheral edema bilaterally. He moves his all 4 extremities. LABORATORY DATA: Glycemia is ranging from 130 to 280, sodium is 139, potassium 3.9, chloride 108, CO2 of 20, BUN 24, creatinine 1.32. IMPRESSION: 1. Syncopal episode due to orthostatic hypotension. The patient was rehydrated and he was given JONI hoses, but his blood pressure still drops. It has to be most likely related to his sympathetic system derangement. 2. Hypertension. 3. Acute kidney injury on chronic kidney disease, stage 3, improved. 4. Chronic anemia. 5. Type 2 diabetes mellitus. PLAN: We are going to discuss the case with Dr. Scruggs, who is currently seeing him for Cardiology evaluation and see what else we can do to get his orthostasis under control. His fluids were stopped and the chest x-ray showed left pleural effusion, but that is probably chronic from the previous operation he had. Job ID: [id number]
[2019-05-08] MEDS ORDERED: Fludrocortisone Acetate 0.1 MG TAB PO SCH (15:15)
[2019-05-08] MEDS: Atorvastatin Calcium 40 MG TAB PO SCH (20:56)
[2019-05-08] MEDS: Insulin Glargine 16 UNITS in Pre-Filled Syringe 1 EACH SC SCH (20:56)
[2019-05-09 07:21] LABS: Anion Gap 5 mmol/L (10-20); BUN (Urea Nitrogen) 30 mg/dL (8.4-25.7); Calc. Creatinine Clearance 49 mL/min (70-130); Calcium 8.7 mg/dL (7.8-10.44); Carbon Dioxide 29 mmol/L (23-31); Chloride 109 mmol/L (98-107); Estimated GFR-MDRD 50; Glucose 189 mg/dL (83-110); Potassium 4.2 mmol/L (3.5-5.1); Sodium 139 mmol/L (136-145)
[2019-05-09] MEDS: Enoxaparin Sodium 80 MG/0.8 ML SYRINGE SC SCH (09:35)
[2019-05-09] MEDS: Aspirin 81 mg Enteric Coated Tablet PO SCH (09:35)
[2019-05-09] MEDS: Senokot S 8.6-50 MG TAB PO SCH ×2 (09:36→20:26)
[2019-05-09] MEDS: Fludrocortisone Acetate 0.1 MG TAB PO SCH (09:36)
[2019-05-09] MEDS: Gabapentin 300 MG CAP PO SCH ×2 (09:36→20:26)
[2019-05-09] MEDS: HumaLOG 300 UNITS/3 ML VIAL SC PRN ×3 (11:20→20:27)
--- NOTE | 2019-05-09 12:16 | PRG ---
DATE OF SERVICE: 05/09/2019 SUBJECTIVE: The patient is seen and examined at the bedside. He does not have much complaints to offer. He noticed that he was asymptomatic when he had orthostatic changes done even though the blood pressure dropped to some extent. OBJECTIVE: VITAL SIGNS: Blood pressure is 138/73 supine, standing is 114/55 and sitting is 103/55. IMPRESSION: 1. Syncope due to orthostatic hypotension. The patient was started on mineralocorticoid yesterday and he had a second dose this morning. This seems to be working better than anything else done before. We will continue the same treatment. 2. Hypertension. 3. Acute kidney injury on chronic kidney disease, stage 3, improved. 4. Chronic anemia. 5. Type 2 diabetes mellitus. PLAN: We are going to postpone the discharge since he is improved, but not to the point that safety we can send him home on this regimen, but significant improvement was noticed since the time of introduction of his fludrocortisone. Job ID: [id number]
--- NOTE | 2019-05-09 16:14 | PDOC.CPN ---
- Subjective Date: 05/09/19 Time: 14:15 Interval history: No new issues. No new complaints. - Review of Systems General: denies: fever/chills, weight/appetite/sleep changes, night sweats, fatigue Respiratory: denies: cough, congestion, shortness of breath, exercise intolerance Cardiovascular: denies: chest pain, palpitation, edema, paroxysmal nocturnal dyspnea, orthopnea Gastrointestinal: denies: nausea, vomiting, diarrhea, constipation, abd pain, GI bleeding Musculoskeletal: denies: pain, tenderness, stiffness, swelling, arthritis/ arthralgias Neurological: denies: numbness, syncope, seizure, weakness - Objective Allergies/Adverse Reactions: Allergies Allergy/AdvReac Type Severity Reaction Status Date / Time Sulfa (Sulfonamide Allergy Intermediate Verified 02/04/19 12:39 Antibiotics) amlodipine Allergy Verified 05/04/19 08:11 prednisone Allergy Verified 02/04/19 12:39 Visit Medications: Current Medications Acetaminophen (Tylenol) 650 mg PO Q4H PRN PRN Reason: Headache/Fever/Mild Pain (1-3) Hydrocodone Bitart/Acetaminophen ([place] 5/325) 1 tab PO Q4H PRN PRN Reason: Moderate Pain (4-6) Aspirin (Ecotrin) 81 mg PO DAILY [facility] Last Admin: 05/09/19 09:35 Dose: 81 mg Atorvastatin Calcium (Lipitor) 40 mg PO HS [facility] Last Admin: 05/08/19 20:56 Dose: 40 mg Bisacodyl (Dulcolax) 10 mg PO DAILYPRN PRN PRN Reason: Constipation Bisacodyl (Dulcolax) 10 mg IA DAILYPRN PRN PRN Reason: Constipation Clonidine (Catapres) 0.1 mg PO Q4H PRN PRN Reason: SBP > 160 use second Dextrose/Water (Dextrose 50%) 25 gm SLOW IVP PRN PRN PRN Reason: Hypoglycemia Enoxaparin Sodium (Lovenox) 70 mg SC 0900 [facility] Last Admin: 05/09/19 09:35 Dose: 70 mg Fludrocortisone Acetate (Florinef) 0.1 mg PO DAILY [facility] Last Admin: 05/09/19 09:36 Dose: 0.1 mg Gabapentin (Neurontin) 300 mg PO BID [facility] Last Admin: 05/09/19 09:36 Dose: 300 mg Glucagon (Glucagon) 1 mg IM PRN PRN PRN Reason: Hypoglycemia Hydralazine HCl (Apresoline) 10 mg SLOW IVP Q6H PRN PRN Reason: SBP GREATER THAN 160 Dextrose/Water (D5w) 1,000 mls @ 0 mls/hr IV .Q0M PRN PRN Reason: Hypoglycemia Insulin Glargine 16 units/ (Miscellaneous Medication) 0.16 mls @ 0 mls/hr SC [facility] Last Admin: 05/08/19 20:56 Dose: 0.16 mls Insulin Human Lispro (Humalog) 0 units SC .BEDTIME SLIDING SC PRN PRN Reason: Bedtime Correctional Scale Last Admin: 05/07/19 20:37 Dose: 2 unit Insulin Human Lispro (Humalog) 0 units SC .MILD SLIDING SCALE PRN PRN Reason: Mild Correctional Scale Last Admin: 05/09/19 11:20 Dose: 5 unit Miscellaneous Medication (Pharmacy To Dose) 1 each PO PRN PRN PRN Reason: Pharmacy to dose Ondansetron HCl (Zofran) 4 mg IVP Q6H PRN PRN Reason: Nausea/Vomiting use 1st Pantoprazole Sodium (Protonix) 40 mg PO DAILY [facility] Last Admin: 05/09/19 09:36 Dose: 40 mg Senna/Docusate Sodium (Senokot S) 1 tab PO BID [facility] Last Admin: 05/09/19 09:36 Dose: 1 tab Sodium Chloride (Flush - Normal Saline) 10 ml IVF Q12HR [facility] Last Admin: 05/09/19 09:37 Dose: 10 ml Sodium Chloride (Flush - Normal Saline) 10 ml IVF PRN PRN PRN Reason: Saline Flush Vital Signs & Weight: Vital Signs Temp Pulse Pulse Pulse Resp BP BP 05/09/19 11:50 97.4 F L 85 18 05/09/19 11:14 88 83 117/53 L 167/79 H 05/09/19 08:43 05/09/19 08:35 98.5 F 82 18 BP BP BP Pulse Ox 05/09/19 11:50 159/77 H 98 05/09/19 11:14 05/09/19 08:43 99 05/09/19 08:35 103/55 L 114/55 L 138/73 99 Admit Weight 165 lb Weight 174 lb 5 oz - Physical Exam General: alert & oriented x3 HEENT: mucus membranes moist Neck: supple neck Cardiac: regular rate and rhythm Lungs: normal breath sounds Neuro: grossly intact Abdomen: active bowel sounds Extremities: no edema Skin: clear Musculoskeletal: no pain - Labs Result Diagrams: 05/05/19 04:04 05/09/19 06:47 Troponin/CKMB CK-MB (CK-2) 1.6 ng/mL (0-6.6) 05/02/19 15:11 Troponin I 0.022 ng/mL (< 0.028) 05/03/19 04:33 - Telemetry Sinus rhythms and dysrhythmias: sinus rhythm - Assessment/Plan Assessment/Plan: 1. Orthostatic hypotension. 2. Syncope. likely 2a to #1 3. HTN 4. Gigi on CKD, improved. PLAN: - Continue fludrocortisone - Only treat HT with standing blood pressure measurements.
[2019-05-09] MEDS: Insulin Glargine 16 UNITS in Pre-Filled Syringe 1 EACH SC SCH (20:26)
[2019-05-09] MEDS: Atorvastatin Calcium 40 MG TAB PO SCH (20:27)
[2019-05-10 04:11] LABS: Anion Gap 9 mmol/L (10-20); BUN (Urea Nitrogen) 33 mg/dL (8.4-25.7); Calc. Creatinine Clearance 49 mL/min (70-130); Calcium 8.9 mg/dL (7.8-10.44); Carbon Dioxide 29 mmol/L (23-31); Chloride 105 mmol/L (98-107); Estimated GFR-MDRD 51; Glucose 128 mg/dL (83-110); Potassium 4.5 mmol/L (3.5-5.1); Sodium 138 mmol/L (136-145)
[2019-05-10] MEDS: Gabapentin 300 MG CAP PO SCH ×2 (09:15→20:19)
[2019-05-10] MEDS: Senokot S 8.6-50 MG TAB PO SCH ×2 (09:15→20:19)
[2019-05-10] MEDS: Aspirin 81 mg Enteric Coated Tablet PO SCH (09:15)
[2019-05-10] MEDS: Enoxaparin Sodium 80 MG/0.8 ML SYRINGE SC SCH ×2 (09:16→20:18)
[2019-05-10] MEDS: Fludrocortisone Acetate 0.1 MG TAB PO SCH (11:48)
[2019-05-10] MEDS: HumaLOG 300 UNITS/3 ML VIAL SC PRN ×2 (11:52→18:27)
--- NOTE | 2019-05-10 15:25 | PRG ---
DATE OF SERVICE: 05/10/2019 SUBJECTIVE: The patient is seen and examined at the bedside. He does not have much complaints to offer. His blood pressure still drops, but not that much. He is asymptomatic with this. OBJECTIVE: VITAL SIGNS: Blood pressure is 115/58 while standing, supine is 137/76, and sitting is 114/64. His temperature is 98.8, respirations 17, pulse is 84, and pulse oximetry is 97% on room air. HEENT: His head is atraumatic and normocephalic. Eyes are PERRLA. Sclerae are nonicteric. Oral mucosa is moist. NECK: Supple. LUNGS: Breath sounds diminished at both bases. HEART: S1 and S2 normal. No S3. No S4. ABDOMEN: Soft, nontender, and nondistended. EXTREMITIES: No clubbing or cyanosis. There is 1+ nonpitting edema of both lower extremities. NEUROLOGIC: He follows my commands. He moves his all 4 extremities. There are no any motor deficits. LABORATORY DATA: Glycemia is ranging from 109 to 372. Sodium of 138, potassium 4.5, chloride 105, CO2 of 29, BUN 33, creatinine 1.36. IMPRESSION: 1. Orthostatic hypotension, improved with fludrocortisone, but still dropping 21 points. 2. Syncope, likely secondary to #1. 3. Hypertension. 4. Acute kidney injury on chronic kidney injury, improved. 5. Type 2 diabetes mellitus, labile, started on long-acting insulin along with short-acting. 6. Chronic anemia. PLAN: Plan is to continue his fludrocortisone. It looks like gradually the issue of orthostasis is getting better, and he should be able probably to go home in the next 24 to 48 hours. We will continue his 16 units of insulin glargine for now, and he will be back on his insulin pump as soon as he is discharged from the hospital. We will continue his Lovenox 70 mg subcutaneously. Then, at the time of discharge, he needs to be back on his Xarelto he was taking at home. Job ID: [id number]
--- NOTE | 2019-05-10 16:23 | PDOC.CPN ---
- Subjective Date: 05/10/19 Time: 16:22 Interval history: He is doing well. BP is better. - Review of Systems General: denies: fever/chills, weight/appetite/sleep changes, night sweats, fatigue Respiratory: denies: cough, congestion, shortness of breath, exercise intolerance Cardiovascular: denies: chest pain, palpitation, edema, paroxysmal nocturnal dyspnea, orthopnea Gastrointestinal: denies: nausea, vomiting, diarrhea, constipation, abd pain, GI bleeding Musculoskeletal: denies: pain, tenderness, stiffness, swelling, arthritis/ arthralgias Neurological: denies: numbness, syncope, seizure, weakness - Objective Allergies/Adverse Reactions: Allergies Allergy/AdvReac Type Severity Reaction Status Date / Time Sulfa (Sulfonamide Allergy Intermediate Verified 02/04/19 12:39 Antibiotics) amlodipine Allergy Verified 05/04/19 08:11 prednisone Allergy Verified 02/04/19 12:39 Visit Medications: Current Medications Acetaminophen (Tylenol) 650 mg PO Q4H PRN PRN Reason: Headache/Fever/Mild Pain (1-3) Hydrocodone Bitart/Acetaminophen ([place] 5/325) 1 tab PO Q4H PRN PRN Reason: Moderate Pain (4-6) Aspirin (Ecotrin) 81 mg PO DAILY [facility] Last Admin: 05/10/19 09:15 Dose: 81 mg Atorvastatin Calcium (Lipitor) 40 mg PO HS [facility] Last Admin: 05/09/19 20:27 Dose: 40 mg Bisacodyl (Dulcolax) 10 mg PO DAILYPRN PRN PRN Reason: Constipation Bisacodyl (Dulcolax) 10 mg IA DAILYPRN PRN PRN Reason: Constipation Clonidine (Catapres) 0.1 mg PO Q4H PRN PRN Reason: SBP > 160 use second Dextrose/Water (Dextrose 50%) 25 gm SLOW IVP PRN PRN PRN Reason: Hypoglycemia Enoxaparin Sodium (Lovenox) 70 mg SC BID [facility] Fludrocortisone Acetate (Florinef) 0.1 mg PO DAILY [facility] Last Admin: 05/10/19 11:48 Dose: 0.1 mg Gabapentin (Neurontin) 300 mg PO BID [facility] Last Admin: 05/10/19 09:15 Dose: 300 mg Glucagon (Glucagon) 1 mg IM PRN PRN PRN Reason: Hypoglycemia Hydralazine HCl (Apresoline) 10 mg SLOW IVP Q6H PRN PRN Reason: SBP GREATER THAN 160 Dextrose/Water (D5w) 1,000 mls @ 0 mls/hr IV .Q0M PRN PRN Reason: Hypoglycemia Insulin Glargine 16 units/ (Miscellaneous Medication) 0.16 mls @ 0 mls/hr SC HS [facility] Last Admin: 05/09/19 20:26 Dose: 0.16 mls Insulin Human Lispro (Humalog) 0 units SC .BEDTIME SLIDING SC PRN PRN Reason: Bedtime Correctional Scale Last Admin: 05/09/19 20:27 Dose: 4 unit Insulin Human Lispro (Humalog) 0 units SC .MILD SLIDING SCALE PRN PRN Reason: Mild Correctional Scale Last Admin: 05/10/19 11:52 Dose: 3 unit Miscellaneous Medication (Pharmacy To Dose) 1 each PO PRN PRN PRN Reason: Pharmacy to dose Ondansetron HCl (Zofran) 4 mg IVP Q6H PRN PRN Reason: Nausea/Vomiting use 1st Pantoprazole Sodium (Protonix) 40 mg PO DAILY [facility] Last Admin: 05/10/19 09:15 Dose: 40 mg Senna/Docusate Sodium (Senokot S) 1 tab PO BID [facility] Last Admin: 05/10/19 09:15 Dose: 1 tab Sodium Chloride (Flush - Normal Saline) 10 ml IVF Q12HR [facility] Last Admin: 05/10/19 11:49 Dose: 10 ml Sodium Chloride (Flush - Normal Saline) 10 ml IVF PRN PRN PRN Reason: Saline Flush Vital Signs & Weight: Vital Signs Temp Pulse Resp BP BP BP Pulse Ox 05/10/19 11:47 84 115/58 L 05/10/19 11:46 81 114/61 05/10/19 10:55 98.8 F 74 17 137/76 97 05/10/19 08:46 97.6 F 79 16 91/62 96 Admit Weight 165 lb Weight 175 lb 7 oz - Physical Exam General: alert & oriented x3 HEENT: mucus membranes moist Neck: supple neck Cardiac: regular rate and rhythm Lungs: clear to auscultation Neuro: grossly intact Abdomen: active bowel sounds Extremities: no edema Skin: clear Musculoskeletal: no pain - Labs Result Diagrams: 05/05/19 04:04 05/10/19 03:26 Troponin/CKMB CK-MB (CK-2) 1.6 ng/mL (0-6.6) 05/02/19 15:11 Troponin I 0.022 ng/mL (< 0.028) 05/03/19 04:33 - Telemetry Sinus rhythms and dysrhythmias: sinus rhythm - Assessment/Plan Assessment/Plan: 1. Orthostatic hypotension. 2. Syncope. likely 2a to #1 3. HTN 4. MARIA TERESA on CKD, improved. PLAN: - Continue fludrocortisone - Only treat HTN with standing blood pressure measurements. - Dr. Scruggs will follow in the morning.
[2019-05-10] MEDS: Atorvastatin Calcium 40 MG TAB PO SCH (20:19)
[2019-05-10] MEDS: Insulin Glargine 16 UNITS in Pre-Filled Syringe 1 EACH SC SCH (21:09)
[2019-05-11 04:49] LABS: Anion Gap 10 mmol/L (10-20); BUN (Urea Nitrogen) 33 mg/dL (8.4-25.7); Calc. Creatinine Clearance 46 mL/min (70-130); Calcium 8.8 mg/dL (7.8-10.44); Carbon Dioxide 30 mmol/L (23-31); Chloride 107 mmol/L (98-107); Estimated GFR-MDRD 45; Glucose 145 mg/dL (83-110); Potassium 4.1 mmol/L (3.5-5.1); Sodium 143 mmol/L (136-145)
[2019-05-11] MEDS: Enoxaparin Sodium 80 MG/0.8 ML SYRINGE SC SCH (08:46)
[2019-05-11] MEDS: Aspirin 81 mg Enteric Coated Tablet PO SCH (08:47)
[2019-05-11] MEDS: Senokot S 8.6-50 MG TAB PO SCH (08:47)
[2019-05-11] MEDS: Gabapentin 300 MG CAP PO SCH (08:47)
[2019-05-11] MEDS: Fludrocortisone Acetate 0.1 MG TAB PO SCH (08:58)
[2019-05-11] MEDS: HumaLOG 300 UNITS/3 ML VIAL SC PRN (12:17)
[2019-05-11 16:09] VITALS: BP 128/81; TEMP 98.7
--- NOTE | 2019-05-12 09:55 | DIS ---
DATE OF ADMISSION: 05/02/2019 DATE OF DISCHARGE: 05/11/2019 DISCHARGE DISPOSITION: Home with home health care. The patient declined rehab or prison facility. DISCHARGE MEDICATION: Florinef 0.1 mg daily was added. He was advised to discontinue carvedilol and amlodipine due to orthostatic hypotension. The patient was seen and examined on the day of discharge. Denies any new complaints. No chest pain, shortness of breath, or palpitations reported. INPATIENT LICENSED PRACTICAL NURSE: Cardiology, Dr. Dominguez Scruggs. INPATIENT PROCEDURES: Echocardiogram showed ejection fraction of 45% to 50% with diastolic dysfunction, [id number] tricuspid regurgitation, and moderately enlarged right atrium. Carotid Doppler was negative for hemodynamically significant stenosis. CT scan of the brain was negative for acute findings. It showed chronic ischemic white matter changes with bilateral small cerebellar infarction. BRIEF HOSPITAL COURSE: The patient is a 78-year-old male with coronary artery disease status post CABG, paroxysmal atrial fibrillation on Xarelto, congestive heart failure with ejection fraction 40% in the past, CKD, and bioprosthetic aortic valve, was brought in on 02 May 2019 with syncopal episode. Please refer to the history and physical by Dr. Sukhjinder Cohen for further details. The patient was admitted to the telemetry unit with a diagnosis of syncope. He was found to have orthostatic hypotension. Amlodipine and carvedilol were discontinued. Initially, midodrine was added. Later on, this was changed to Florinef per Cardiology. His telemetry monitoring showed 1.5 second pause (Wenckebach). His telemetry monitoring otherwise was normal. He also had a syncopal episode while he was on the commode on the 04 May. His telemetry monitoring at that time was negative for significant arrhythmias. The patient has been cleared by Cardiology for discharge. FINAL DIAGNOSES: 1. Syncope secondary to orthostatic hypotension along with dehydration. He had diarrhea prior to ER arrival. 2. 1.5 second pause on the telemonitor. Carvedilol was discontinued. 3. History of paroxysmal atrial fibrillation, on anticoagulation. 4. History of atrial flutter. 5. History of recurrent falls, probably secondary to orthostasis. 6. Coronary artery disease, status post coronary artery bypass grafting. 7. Status post bioprosthetic aortic valve replacement. 8. Diabetes mellitus, type 2. 9. Chronic systolic heart failure, ejection fraction of 45% to 50% range. 10. Hyperlipidemia. 11. History of cerebrovascular accident. 12. Chronic kidney disease, stage 3 with acute kidney injury on arrival. His creatinine on admission was 2.32, at discharge was 1.09. PLAN: Plan was discussed with the patient and the son. Job ID: [id number]
--- NOTE | 2019-05-12 21:55 | PQF ---
[employer] Diet Therapist Crystal Reports Winform Viewer MYKELSIMBA THOMASIRIS RAZO MD [id number] [facility]-285 [id number] CLINICAL DOCUMENTATION CLARIFICATION FORM: POST DISCHARGE Addendum to original discharge summary date: ____ Late entry note date: __ DATE: 05/12/19 ATTN:Iris Rolon Please exercise your independent, professional judgment in responding to the clarification form. Clinical indicators are provided on the bottom of this form for your review Can you please further clarify if Type 2 VA is ruled in or ruled out? Type 2 VA [ x] Ruled in diagnosis [ ] Continue to treat [ x ] Resolved [ ] Ruled out diagnosis [ ] Cannot rule out diagnosis [ ] Other diagnosis [ ] Unable to determine In addition, please specify: Present on Admission (POA): [ x ] Yes [ ] No [ ] Unable to determine For continuity of documentation, please document condition throughout progress notes and discharge summary. Thank You. CLINICAL INDICATORS - SIGNS / SYMPTOMS / LABS Hospitalist PN 05/04 Dr. Enamorado pg.4- Type 2 VA H and P pg.3- fall/syncope I the setting of extensive cardiac history and chronic orthostatic hypotension Laboratory- troponin 0.039H, 0.012, 0.022 DS pg.1- he was found to have orthostatic hypotension RISK FACTORS CAD_ H and P pg.1 Paroxysmal atrial fibrillation- H and P pg.1 CHF- H and P pg.1 DM2- H and P pg.1 TREATMENTS IV Fluids- MAR Cardiology Consult- Dr. Salcido Amlodipine and carvedilol were discontinued- DS pg.1 Echocardiogram 05/03 (This form is maintained as a part of the permanent medical record) 2014 [employer]. All Rights Reserved Raza [email or web address] [not provided] MTDD
--- NOTE | 2019-05-13 19:14 | PQF ---
BETHANY FLYNN MALIK MD [id number] [facility] [id number] CLINICAL DOCUMENTATION CLARIFICATION FORM: POST DISCHARGE Addendum to original discharge summary date: ____ Late entry note date: __ DATE: 05/13/19 ATTN: Francis Enamorado Please exercise your independent, professional judgment in responding to the clarification form. Clinical indicators are provided on the bottom of this form for your review Can you please further clarify the etiology of Type 2 VT? Please check appropriate box(s): [ x ] Orthostatic hypotension [ ] Dehydration [ x ] Acute kidney injury [ ] Other diagnosis [ ] Unable to determine In addition, please specify: Present on Admission (POA): [ x ] Yes [ ] No [ ] Unable to determine CLINICAL INDICATORS - SIGNS / SYMPTOMS / LABS H and P pg.3- fall/syncope I the setting of extensive cardiac history and chronic orthostatic hypotension Hospitalist PN 05/04 Dr. Enamorado pg.4- Type 2 VT H and P pg.3- MARIA TERESA in CKD III- improved with IVF DS pg.1- he was found to have orthostatic hypotension DS pg.2- syncope secondary to orthostatic hypotension along with dehydration DS pg.2- acute kidney injury on arrival RISKS: CAD-H and P pg.1 Paroxysmal atrial fibrillation- H and P pg.1 CHF- H and P pg.1 DM2- H and P pg.1 TREATMENTS: IV Fluids- MAR Cardiology Consult- Dr. Salcido Amlodipine and carvedilol were discontinued- DS pg.1 Echocardiogram 05/03 (This form is maintained as a part of the permanent medical record) 2014 [employer]. All Rights Reserved Raza [email or web address] [not provided] MTDD
== END 2019-05-11 17:25 | disposition home health service (06) | DRG 682 ==
LOC: ERS 14:22 → 2NO 19:09
PROVIDERS: ADMIT Internal Medicine; ATTEND Internal Medicine
DX: N17.9 Acute kidney failure, unspecified (principal); I21.A1 Myocardial infarction type 2; I50.22 Chronic systolic (congestive) heart failure; I95.1 Orthostatic hypotension; E86.0 Dehydration; I25.10 Atherosclerotic heart disease of native coronary artery without angina pectoris; I48.0 Paroxysmal atrial fibrillation; N18.3 Chronic kidney disease, stage 3 (moderate); Z96.41 Presence of insulin pump (external) (internal); E11.22 Type 2 diabetes mellitus with diabetic chronic kidney disease; E11.40 Type 2 diabetes mellitus with diabetic neuropathy, unspecified; D63.1 Anemia in chronic kidney disease; I11.0 Hypertensive heart disease with heart failure; E11.319 Type 2 diabetes mellitus with unspecified diabetic retinopathy without macular edema; I07.1 Rheumatic tricuspid insufficiency; D69.6 Thrombocytopenia, unspecified; R33.9 Retention of urine, unspecified; E11.621 Type 2 diabetes mellitus with foot ulcer; Z95.1 Presence of aortocoronary bypass graft; Z79.01 Long term (current) use of anticoagulants; Z86.73 Personal history of transient ischemic attack (TIA), and cerebral infarction without residual deficits; Z79.4 Long term (current) use of insulin; Z88.2 Allergy status to sulfonamides; Z79.82 Long term (current) use of aspirin; Z79.899 Other long term (current) drug therapy; Z95.3 Presence of xenogenic heart valve; E78.5 Hyperlipidemia, unspecified; Z88.8 Allergy status to other drugs, medicaments and biological substances
CPT/HCPCS: 36415; 36416; 70450; 71045; 80048; 81001; 82533; 82553; 82607; 83735; 84443; 84484; 85025; 93005; 93306; 93880; 94760; 96360; 96361; J1650; J1815

== ENCOUNTER 2019-06-05 16:51 | Inpatient (IN) | payer MEDICARE ==
[2019-06-05] MEDS ORDERED: Rocuronium Bromide 10 MG/ML (10ML VIAL) ONE ×2 (16:56→17:01)
[2019-06-05] MEDS ORDERED: Rocuronium Bromide 50 MG/5 ML VIAL ONE (16:57)
[2019-06-05] MEDS ORDERED: fentaNYL Citrate/PF 2,000 MCG in Sodium Chloride 0.9% 60 ML IV SCH ×2 (17:15→19:38)
--- NOTE | 2019-06-05 17:19 | RAD ---
Portable frontal chest radiograph: 06/05/2019 COMPARISON: 05/02/2019 HISTORY: Stroke symptoms, intubation FINDINGS: Supine imaging is provided, limiting assessment for pneumothorax and pleural fluid. Loop re susanne overlies the left upper quadrant. Endotracheal tube and nasogastric tube in proper position. Midline sternotomy wires and mediastinal clips noted. Stable linear density in the left base with teo nting of left costophrenic angle suggests volume loss and/or scar. IMPRESSION: No focal consolidation or alveolar edema. Lines and tubes as detailed above.
[2019-06-05 17:25] LABS: #Lymphocytes 0.9 thou/uL (1.20-3.40); #Monocytes 0.6 thou/uL (0.11-0.59); #Neutrophils 5.1 thou/uL (1.40-6.50); %Basophils 0.1 % (0.0-1.0); %Eosinophils 0.7 % (0.0-10.0); %Monocytes 9.4 % (0.0-10.0); %Neutrophils 76.8 % (42.0-75.0); Hemoglobin 11.1 g/dL (14.0-18.0); Mean Corpuscular HGB CONC 32.8 g/dL (32.0-36.0); Mean Corpuscular Hemoglobin 32.6 pg (27.0-31.0); Mean Corpuscular Volume 99.2 fL (78.0-98.0); Mean Platelet Volume 7.3 fL (7.4-10.4); Platelet Count 167 thou/uL (130-400); RBC Distribution Width 12.8 % (11.5-14.5); Red Blood Cell (RBC) Count 3.39 mill/uL (4.70-6.10); White Blood Cell (WBC) Count 6.7 thou/uL (4.8-10.8)
--- NOTE | 2019-06-05 17:28 | CT ---
Head CT without contrast 06/05/2019: COMPARISON: 05/04/2019 HISTORY: Stroke symptoms, aphasia TECHNIQUE: Axial CT imaging at 5 mm intervals from vertex through skull base without contrast FINDINGS: Stable cerebral volume loss with prominence of the CSF containing spaces. Stable old bilate ral cerebellar lacunar infarctions. No intracranial hemorrhage, midline shift, or mass effect. Imaged paranasal sinuses and mastoid air cells appear grossly unremarkable. No acute osseous abnormal ity. IMPRESSION: No intracranial hemorrhage. Results called to Dr. arango at 5:25 PM 06/05/2019.
[2019-06-05 17:36] LABS: INR-International Normal Ratio 1.1; PTT 26.8 SEC (22.9-36.1); Prothrombin Time 13.8 SEC (12.0-14.7)
[2019-06-05 17:38] LABS: ALT (SGPT) 9 U/L (8-55); AST (SGOT) 20 U/L (5-34); Albumin 3.2 g/dL (3.4-4.8); Alkaline Phosphatase 128 U/L (40-110); Anion Gap 11 mmol/L (10-20); BUN (Urea Nitrogen) 15 mg/dL (8.4-25.7); Bilirubin, Total 0.4 mg/dL (0.2-1.2); CK (CPK) 35 U/L (30-200); Calc. Creatinine Clearance 0 mL/min (70-130); Calcium 8.2 mg/dL (7.8-10.44); Carbon Dioxide 28 mmol/L (23-31); Chloride 104 mmol/L (98-107); Estimated GFR-MDRD 53; Glucose 272 mg/dL (83-110); Potassium 3.7 mmol/L (3.5-5.1); Protein, Total 6.2 g/dL (5.8-8.1); Sodium 139 mmol/L (136-145)
[2019-06-05] MEDS ORDERED: Propofol 1,000 MG/100 ML VIAL IV ONE (17:40)
[2019-06-05] MEDS ORDERED: niCARdipine 25 MG in Sodium Chloride 0.9% 250 ML 240 ML IVPB SCH (17:45)
[2019-06-05 17:49] LABS: Actual Bicarbonate (HCO3a) 11.2 mEq/L (22-28); Analyzer IN Cardio ER; Base Excess (BEa) -12.7 mEq/L (-2.0 to +3.0); CO2 Tension 18.6 mmHg (35.0-45.0); Carboxyhemoglobin (COHb) 0.3 gm% (0.0-3.0); Hemoglobin (Hb) 4.8 g/dL (14.0-18.0); Potassium - ABG Lab 1.16 mmol/L (3.70-5.30)
[2019-06-05 17:50] LABS: Puncture Site RRA
--- NOTE | 2019-06-05 18:10 | CT ---
CTA OF THE NECK WITH CONTRAST CTA OF THE HEAD WITH CONTRAST 06/05/19 HISTORY: Diabetes with multiple seizures. Stroke-like symptoms with expressive and receptive aphasia. Patient is intubated. TECHNIQUE: 1. Multiple contiguous axial images were obtained in a CTA of the neck with contrast. 3D sagitta l and coronal MIP reformats were performed. 2. Multiple contiguous axial images were obtained in a CTA of the head with contrast. 3D sagitta l and coronal MIP reformats were performed. FINDINGS: CTA NECK: An endotracheal tube is seen with the tip above the bo. An NG tube is partially visualized. The l addi apices are unremarkable. Degenerative changes are seen in the spine. No cervical adenopathy is se en. Mild atherosclerotic disease is see in both subclavian arteries. The common carotid arteries are norm al in appearance proximally. Atherosclerotic disease is seen surrounding both carotid bifurcations. T here is mild stenosis of less than 10% on the right per NASCET criteria in the internal carotid arter y. There is moderate to severe stenosis on the left with approximately 75% stenosis per NASCET criter ia in the proximal left internal carotid artery. The distal aspect of the cervical internal carotid a rteries are patent. There was a moderate amount of atherosclerotic disease in the right distal cervic al carotid artery just before entering the carotid canal with approximately 50% stenosis in this loca tion. No significant stenosis is seen on the left in the distal cervical internal carotid. The vertebral arteries are patent. The left vertebral artery is dominant. Calcified atherosclerotic d isease is seen in the right vertebral artery along the mid portion. The bilateral intracranial internal carotid arteries show no significant atherosclerotic disease and branches normal appearing anterior and middle cerebral arteries. Moderate diffuse atherosclerotic dis ease is seen in the cavernous portion of both internal carotid arteries just before their intracrania l extension. There is no evidence of aneurysmal dilatation, stenosis, or occlusion in the anterior ci rculation. The right intracranial vertebral artery appears to be occluded and demonstrates atherosclerotic dise ase. The basilar artery is supplied by the left vertebral artery which demonstrates moderate diffuse atherosclerotic disease. The posterior cerebral arteries and cerebellar arteries are patent. There is no evidence of focal stenosis, aneurysmal dilatation, or occlusion in the posterior circulation. IMPRESSION: 1. Severe stenosis of the proximal left cervical internal carotid artery. 2. Moderate stenosis of 50% of the distal right cervical internal carotid artery just before the artery enters the carotid canal. 3. 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 4. No evidence of thrombosis or occlusion intracranially.
[2019-06-05] MEDS ORDERED: Aspirin 300 MG Suppository ONE (18:21)
[2019-06-05] MEDS ORDERED: Nitroglycerin 50 MG/250 ML BOT 250 ML ONE (18:21)
[2019-06-05] MEDS ORDERED: Lorazepam 2 MG/ML VIAL SLOW IVP PRN (19:38)
[2019-06-05] MEDS ORDERED: DISCONTINUE PREVIOUS NARCOTIC PAIN MEDICATIONS AND BENZODIAZEPINES FS SCH (19:38)
[2019-06-05] MEDS ORDERED: Propofol BOLUS 1,000 MG/100 ML VIAL IV PRN (19:38)
[2019-06-05] MEDS ORDERED: Fentanyl BOLUS 250 ML IVPB PRN (19:38)
[2019-06-05] MEDS ORDERED: Morphine 2 MG/ML SYRINGE SLOW IVP PRN (19:38)
[2019-06-05] MEDS ORDERED: Labetalol HCl 100 MG/20 ML VIAL SLOW IVP PRN (19:45)
[2019-06-05] MEDS ORDERED: Dextrose 50% Abboject 50 ML SYRINGE SLOW IVP PRN (19:45)
[2019-06-05] MEDS ORDERED: Senokot S 8.6-50 MG TAB PO PRN (19:45)
[2019-06-05] MEDS ORDERED: Ondansetron ODT 4 MG TAB PO PRN (19:45)
[2019-06-05] MEDS ORDERED: Dextrose 5% in Water 1,000 ML IV PRN (19:45)
[2019-06-05] MEDS ORDERED: Guaifenesin DM 100-10/5 ML UDCUP PO PRN (19:45)
[2019-06-05] MEDS ORDERED: HumaLOG 300 UNITS/3 ML VIAL SC PRN (19:45)
[2019-06-05] MEDS ORDERED: Acetaminophen 650 MG Suppository PR PRN (19:45)
[2019-06-05] MEDS ORDERED: Ondansetron PF 4 MG/2 ML Vial IVP PRN (19:45)
[2019-06-05] MEDS ORDERED: Acetaminophen 325 MG TAB PO PRN (19:45)
[2019-06-05] MEDS ORDERED: hydrALAZINE 20 MG/ML VIAL SLOW IVP PRN (19:45)
[2019-06-05] MEDS: Atorvastatin Calcium 40 MG TAB PO SCH (20:35)
[2019-06-05] MEDS: Famotidine/PF 20 mg/2ml Vial SLOW IVP SCH (20:36)
--- NOTE | 2019-06-05 20:54 | PDOC.EVN ---
Event Note - Event Note Event Note: Patient admitted for seizures, possible acute stroke, not tPA candidate. Dictation #[id number]
[2019-06-05] MEDS ORDERED: Nitroglycerin 50 MG/250 ML BOT 250 ML IVPB SCH (21:00)
[2019-06-05] MEDS: Enoxaparin Sodium 80 MG/0.8 ML SYRINGE SC SCH (21:32)
--- NOTE | 2019-06-05 21:51 | HP ---
PRIMARY CARE PHYSICIAN: Mehrdad Robb. CHIEF COMPLAINT: Seizure activity. HISTORY OF PRESENT ILLNESS: This is a 78-year-old white male with a known history of previous mild strokes and multiple episodes of syncope and falls, who had been worked up his cardiac issues in the past. The patient had an event monitor placed by his neurology nurse, Dr. Watt, earlier today. The patient was in his normal state of health. He gets around with a walker, was interacting appropriately with his family. Then after lunch, he sat down and then started becoming, what they thought, drowsy. When they went over to talk to him around 2 o'clock, he was not responding to them. He was just looking straight ahead without responding to them. They started trying to stimulate him. Eventually, he said clearly to let him up or let him go. After that, he started to have some shaking of the right side of his face, his right eyelid, his right arm, and his right leg. This lasted for few minutes. It resolved spontaneously and he started looking around like he was confused but not talking after that. He had one more episode before EMS arrived. When EMS got there, he was still alert and looking around, but confused, not talking. In the ambulance on the way here, he had another episode. The EMS gave him some Ativan with resolution of most of the shaking. His arm was still doing a little bit of movement, though he had a deviated gaze to the right side afterward and was nonverbal after that and not following commands. When he got to the ER, he was not protecting his airway and he was intubated by the ER physician and placed on propofol. In the ER, he was noted to have some shaking of the right hand as well before the intubation. He also apparently had some left-sided neglect prior to his intubation as well. The patient had a CT scan done in the emergency room without contrast that was negative. He then had a CTA of the head and neck, which showed severe stenosis of the proximal left cervical internal carotid artery, moderate stenosis to 50% of the distal right cervical internal carotid artery, and occlusion of the distal right vertebral artery that extends into its intracranial extent. No evidence of thrombosis or occlusion intracranially. The ER doctor did discuss the possibility of tPA with the family. However, on taking history, he realized that he was on Xarelto and also his blood pressure became quite high and so, he was not a candidate for tPA. The patient is now being admitted to the hospital. REVIEW OF SYSTEMS: Unable to obtain secondary to the patient's mental status. See HPI for all known symptoms per the family. Of note, the family denied any vomiting. No loss of bowel or bladder continence before or during these episodes and no complaints from the patient prior to the episode starting. PAST MEDICAL HISTORY: 1. Coronary artery disease, status post CABG. 2. Bicuspid aortic valve, status post replacement with a porcine valve. 3. Paroxysmal atrial fibrillation, on long-term Xarelto. 4. Legally blind. 5. Cardiomyopathy with systolic dysfunction. EF around 40% to 45%. 6. Chronic kidney disease, stage 3. 7. Previous stroke. 8. Insulin-dependent diabetes mellitus, type 2 with insulin pump. 9. Diabetic retinopathy. 10. Diabetic neuropathy. PAST PSYCHIATRIC HISTORY: Positive for depression and anxiety. PAST SURGICAL HISTORY: 1. Cholecystectomy. 2. Coronary artery bypass grafting. 3. Aortic bioprosthetic valve replacement in 2007. 4. Bilateral cataract removal. 5. Previous cardioversion. 6. Event monitor placement today. SOCIAL HISTORY: No record of tobacco, alcohol, or illicit drug use. The patient is retired. He lives in assisted living. He is a full code. His medical power of divorce attorney is his eldest son, Danny Barnes Jr, who is a neurology nurse and lives in [place]. FAMILY HISTORY: Mother at age of 74 with an ID and father at age of 88 with an ID. No other known family medical history. ALLERGIES: TO SULFA ANTIBIOTICS AND PREDNISONE. OF NOTE, THE PATIENT ALSO HAS AMLODIPINE AND CARVEDILOL LISTED ALLERGIES. ACCORDING TO THE SON, THESE ARE NOT ACTUALLY TRUE ALLERGIES, BUT THEY WERE LISTED ALLERGIES IN HIS MEDICAL RECORD TO PREVENT PEOPLE FROM RESTARTING THEM DUE TO CONCERN THAT THEY WERE CAUSING ORTHOSTATIC HYPOTENSION AND BRADYCARDIA IN THE PAST. CURRENT MEDICATIONS: 1. Lipitor 40 mg daily. 2. Xarelto 10 mg each night. 3. Insulin pump with Humalog insulin. 4. Biotin 1 mg daily. 5. Glucosamine 500 mg daily. 6. Multivitamin daily. 7. Aspirin 81 mg daily. 8. Florinef 0.1 mg daily. 9. Magnesium, unknown dose daily. 10. Ubiquinol 100 mg daily. 11. Docusate sodium 100 mg daily. PHYSICAL EXAMINATION: VITAL SIGNS: The patient with initially blood pressure of 176/79, pulse of 78, respirations 20, and O2 saturation 100%, when he was being bag masked and temperature is 96.8. Over the course of his ER stay, his blood pressures did shoot up to 221/127, at which point, Cardene was started and his blood pressure was brought down to the 170s to 180s. This was traded out for nitroglycerin after there was a report of possible amlodipine allergy, though it looks like he does not actually have an amlodipine allergy. His most recent blood pressure is 174/101. GENERAL: This is an elderly white male, intubated and sedated on propofol without any evidence of seizure activity, moving his mouth and jaws a little bit without any specific asymmetric movement of those. He does appear to have his eyes deviated a little bit to the right and tends to lay with his head toward the right side. HEENT: Right eye is completely scarred across the cornea without any pupillary movement. Left eye does have an artificial lens in place. The pupil is about 3 mm and is not currently responsive to light. Oropharynx with OT tube. No evidence of blood or trauma. NECK: Without any deformity or swelling. No masses or lymphadenopathy. HEART: Regular rate and rhythm. No murmurs, rubs, or gallops. LUNGS: Clear to auscultation bilaterally on the ventilator. ABDOMEN: Soft. Normoactive bowel sounds. No masses palpable. EXTREMITIES: No clubbing, cyanosis, or edema. He has no current reflexes or Babinski's. By ER report, he actually had upgoing toes on the right-hand side to ER doctor's exam earlier. SKIN: The patient has an area of sore over his sternum and has a bandage over the top. No other lesions or rashes noted. NEUROLOGIC: The patient is currently sedated on the vent. He is not having any current seizure activity and is not responsive to stimulation or pain right now. His eyes and head appear to deviate to the right a little bit. No other focal neurologic findings. LABORATORY DATA: CBC with a white blood cell count of 6.7, hemoglobin 11.1, hematocrit 33.7, and platelet count 167. Coagulation profile is normal. Complete metabolic panel is notable for glucose of 272 and alkaline phosphatase of 128 and an albumin of 3.2. The rest is negative. Troponin is negative x1. IMAGING STUDIES: CT imaging, see HPI. Chest x-ray, I did review the chest x-ray done in the emergency room along with radiologist's report. It does show endotracheal tube in proper position and nasogastric tube as well. No evidence of edema or pulmonary infiltrates. ASSESSMENT: 1. New onset focal type seizure activity. This could be related to an acute stroke, tumor, or possibly even infection. At this point, stroke is the highest thing on the differential. We will need an MRI to better evaluate for an acute stroke or nonvisualized mass on the CT. We will consult Neurology for recommendations on treatment of seizures and further workup. The patient did have some severe elevations of blood pressure. We will keep those closer to the 180s systolic range to prevent bleeding sequela. I do not want it to get too low though in the setting of possible acute stroke. So, we will titrate the medications accordingly. Right now, he is on nitroglycerin. Should we need to, we can switch back to a Cardene drip as he does not truly have an amlodipine allergy. 2. Respiratory failure. The patient was, by ER report, hypoxic on room air prior to intubation, down to 75%. This is likely secondary to his seizure activity and then sedative medications for treating the seizure. We will ask Pulmonology to take care of the patient while he is on the vent and wean him as appropriate. 3. Carotid stenosis. The patient has significant carotid disease and some basilar disease as well consistent with his history of previous stroke and possibly the source of his current symptoms. He does not have any clot that could be removed at this time. Depending on his outcome from the stroke, the patient's severe stenosis of approximately 75% in his proximal left internal carotid artery may warrant intervention. We will have CV Surgery see him eventually during the hospitalization to evaluate for possible need for intervention. 4. Paroxysmal atrial fibrillation. The patient is not currently having any intracranial bleeding. We will need to continue anticoagulation for his atrial fibrillation. Right now, we will start him on Lovenox full dose and can switch him back to Xarelto, when he is taking p.o. medications. 5. Gastrointestinal prophylaxis. We will put patient on Pepcid IV twice a day. 6. Code status. We did discuss this with patient's sons. He is a full code. His medical power of divorce attorney is his son, Danny Barnes . Job ID: [id number]
[2019-06-06 04:26] LABS: #Eosinphils 0.1 thou/uL (0.0-0.7); #Lymphocytes 1.3 thou/uL (1.20-3.40); #Neutrophils 6.1 thou/uL (1.40-6.50); %Basophils 0.2 % (0.0-1.0); %Eosinophils 1.4 % (0.0-10.0); %Monocytes 11.8 % (0.0-10.0); %Neutrophils 71.6 % (42.0-75.0); Hemoglobin 12.1 g/dL (14.0-18.0); Mean Corpuscular HGB CONC 34.5 g/dL (32.0-36.0); Mean Corpuscular Volume 98.3 fL (78.0-98.0); Mean Platelet Volume 6.8 fL (7.4-10.4); Platelet Count 148 thou/uL (130-400); RBC Distribution Width 12.8 % (11.5-14.5); Red Blood Cell (RBC) Count 3.55 mill/uL (4.70-6.10); White Blood Cell (WBC) Count 8.5 thou/uL (4.8-10.8)
[2019-06-06 04:46] LABS: Anion Gap 13 mmol/L (10-20); BUN (Urea Nitrogen) 13 mg/dL (8.4-25.7); Calc. Creatinine Clearance 67 mL/min (70-130); Calcium 8.6 mg/dL (7.8-10.44); Carbon Dioxide 25 mmol/L (23-31); Cardiac Risk 2.5 (Less than 4.5); Chloride 106 mmol/L (98-107); Cholesterol 105 mg/dl (< 200 Desired); Estimated GFR-MDRD 63; Glucose 167 mg/dL (83-110); HDL Cholesterol 42 mg/dL (>60 Neg Risk); LDL Cholesterol, Calculated 44 mg/dL; Potassium 3.5 mmol/L (3.5-5.1); Sodium 140 mmol/L (136-145); Triglycerides 94 mg/dL (Less than 150)
[2019-06-06 06:43] LABS: Actual Bicarbonate (HCO3a) 25.2 mEq/L (22-28); Base Excess (BEa) -2.3 mEq/L (-2.0 to +3.0); CO2 Tension 55.7 mmHg (35.0-45.0); Carboxyhemoglobin (COHb) 0.9 gm% (0.0-3.0); Hemoglobin (Hb) 12.6 g/dL (14.0-18.0); O2 Tension (PaO2) 101.3 mmHg (> 70.0); Potassium - ABG Lab 3.67 mmol/L (3.70-5.30); pH, Arterial 7.27 (7.35-7.45)
[2019-06-06 06:47] LABS: Puncture Site RB
[2019-06-06 06:48] LABS: ALV-art Gradient 114.275 (0-20)
[2019-06-06] MEDS: Famotidine/PF 20 mg/2ml Vial SLOW IVP SCH ×2 (08:39→20:36)
[2019-06-06] MEDS: HumaLOG 300 UNITS/3 ML VIAL SC PRN ×2 (08:41→18:40)
[2019-06-06] MEDS: Propofol 1,000 MG/100 ML VIAL IV PRN (08:50)
--- NOTE | 2019-06-06 09:06 | PDOC.HOSPP ---
- Subjective Encounter Date: 06/06/19 (f/u seizure) Encounter Time: 09:04 Subjective: Overnight, pt's bp dropped and nitro gtt d/c a few hours ago. Pt responds to light touch, remains on propofol with intermittent fentanyl prn, continues to be intubated. - Objective Vital Signs & Weight: Vital Signs (12 hours) Temp Pulse Resp BP Pulse Ox 06/06/19 08:00 98.7 F 10 L 100 06/06/19 06:18 72 150/80 H 06/06/19 06:00 10 L 06/06/19 04:00 97.8 F 10 L 06/06/19 02:20 67 124/72 06/06/19 01:57 10 L 06/06/19 00:04 67 06/06/19 00:00 97.7 F 10 L 06/05/19 22:00 10 L 06/05/19 21:23 66 Weight Weight 197 lb 12.074 oz Most Recent Monitor Data Heart Rate from ECG 76 NIBP 137/73 NIBP BP-Mean 94 Respiration from ECG 22 SpO2 100 I&O: 06/05/19 06/06/19 06/07/19 06:59 06:59 06:59 Intake Total 267.1 Output Total 1735 90 Balance -1467.9 -90 Result Diagrams: 06/06/19 03:57 06/06/19 03:57 Additional Labs: Accuchecks 06/06/19 06/05/19 08:40 17:00 POC Glucose 166 H 324 H EKG Reviewed by me: Yes (tele - sinus 70's, with parox a fib) Hospitalist ROS - Review of Systems ROS unobtainable: due to endotracheal tube - Medication Medications: Active Medications Generic Name Dose Route Start Last Admin Trade Name Freq PRN Reason Stop Dose Admin Atorvastatin Calcium 40 mg 06/05/19 21:00 06/05/19 20:35 Lipitor PO 40 mg HS ASHLY Administration Enoxaparin Sodium 80 mg 06/05/19 21:00 06/05/19 21:32 Lovenox SC Not Given 0900,2100 ASHLY Famotidine 20 mg 06/05/19 21:00 06/06/19 08:39 Pepcid SLOW IVP 20 mg Q12HR ASHLY Administration Fentanyl Citrate 2,000 mcg/ 100 mls @ 0 mls/hr 06/05/19 17:15 12/27/19 20:36 Sodium Chloride IV 07/05/19 17:15 100 mls INF ASHLY Administration Protocol Per Protocol Insulin Human Lispro 0 units 06/05/19 19:45 06/06/19 08:41 Humalog SC 2 unit .MILD SLIDING SCALE PRN Administration Mild Correctional Scale Insulin Human Lispro 0 units 06/05/19 19:45 06/05/19 20:26 Humalog SC 2 units .BEDTIME SLIDING SC PRN Administration Bedtime Correctional Scale Propofol 1,000 mg 06/05/19 19:38 06/06/19 08:50 Diprivan IV 07/05/19 19:38 1,000 mg INF PRN Administration TO ACHIEVE GOAL RASS Protocol - Exam General Appearance: NAD General - other findings: intubated and sedated, moves with light touch Heart: RRR, no murmur Respiratory: CTAB, no wheezes Gastrointestinal: soft, non-distended, normal bowel sounds Extremities: no cyanosis, no clubbing, no edema Hosp A/P (1) Acute respiratory failure with hypoxia Code(s): J96.01 - ACUTE RESPIRATORY FAILURE WITH HYPOXIA Status: Acute (2) Seizure Code(s): R56.9 - UNSPECIFIED CONVULSIONS Status: Acute (3) Focal neurological deficit Code(s): R29.818 - OTHER SYMPTOMS AND SIGNS INVOLVING THE NERVOUS SYSTEM Status: Acute (4) Paroxysmal atrial fibrillation Code(s): I48.0 - PAROXYSMAL ATRIAL FIBRILLATION Status: Chronic (5) Carotid artery stenosis Code(s): I65.29 - OCCLUSION AND STENOSIS OF UNSPECIFIED CAROTID ARTERY Status : Chronic Qualifiers: Laterality: left Qualified Code(s): I65.22 - Occlusion and stenosis of left carotid artery (6) Coronary artery disease Code(s): I25.10 - ATHSCL HEART DISEASE OF [place] CORONARY ARTERY W/O ANG PCTRS Status: Chronic Qualifiers: Coronary Disease-Associated Artery/Lesion type: bypass graft (7) DM2 (diabetes mellitus, type 2) Status: Chronic Qualifiers: Diabetes mellitus jail insulin use: with termite exterminator helper use - Plan - appreciate Pulmonology consult - managing vent - For concern of neuro changes - MRI today - Neurology consult for neuro changes and new onset seizure - Continue selective home meds - Insulin sliding scale as needed - pt was fully anticoagulated with Xarelto, changed to lovenox on admission - continue this for stroke risk reduction with pAF dvt prophy - not indicated, on full dose lovenox gi prophy - IV pepcid code status full pt remains at high risk in current condition
[2019-06-06] MEDS ORDERED: Vecuronium 10 MG VIAL IVP PRN (09:08)
--- NOTE | 2019-06-06 09:55 | CON ---
DATE OF CONSULTATION: 06/06/2019 CONSULT PHYSICIAN: Hospitalist Group. REASON FOR CONSULTATION: Acute respiratory failure requiring ventilator management. HISTORY OF PRESENT ILLNESS: Mr. Barnes is a 78-year-old male, who was admitted to the Hospitalist Service yesterday, intubated, after having a seizure. Initially, he was seen by EMS in his residency and was given some Ativan for the seizure. By the time he got to the ER, he was not protecting his airway and had to be intubated. There were some concerns of stroke, but it could not be diagnosed by CT scan. He was not given tPA because he had been on Xarelto prior to admission. He was briefly on nicardipine and nitroglycerin, but those have been stopped. PAST MEDICAL HISTORY: 1. Coronary artery disease requiring bypass grafting surgery. 2. Paroxysmal atrial fibrillation. 3. Legal blindness. 4. Cardiomyopathy with EF 40% to 45%. 5. Chronic kidney disease, stage 3. 6. Stroke. 7. Diabetes mellitus type 2, now being managed with insulin pump. 8. Diabetic retinopathy. 9. Diabetic neuropathy. PAST SURGICAL HISTORY: 1. Bicuspid aortic valve replacement with porcine valve. 2. Coronary artery bypass grafting surgery. 3. Cholecystectomy. 4. Cataract removal. 5. Cardiac event monitor placement. SOCIAL HISTORY: Nonsmoker. Does not consume alcohol. Does not use illicit drugs. FAMILY MEDICAL HISTORY: Remarkable for myocardial infarction. ALLERGIES: SULFA, PREDNISONE, AMLODIPINE, CARVEDILOL. MEDICATIONS: Prior to admission; 1. Lipitor 40 mg daily. 2. Xarelto 10 mg daily. 3. Insulin pump. 4. Biotin 1 mg daily. 5. Glucosamine 500 mg daily. 6. Multivitamin daily. 7. Aspirin 81 mg daily. 8. Florinef 0.1 mg daily. 9. Magnesium. 10. Ubiquinol 100 mg daily. 11. Docusate 100 mg daily. REVIEW OF SYSTEMS: Cannot be obtained as the patient is currently on mechanical ventilation. PHYSICAL EXAMINATION: VITAL SIGNS: Temperature is 98.7, pulse 76, blood pressure 137/73, O2 saturation 100%. He is on propofol 5 mg/kg per minute. He is also on a fentanyl drip. HEENT: Pupils are 2 mm and reactive. Sclerae are anicteric. Oropharynx, ET tube in place. NECK: No adenopathy or JVD. No carotid bruits heard. CARDIAC: S1 and S2 regular without audible murmur. LUNGS: Coarse breath sounds anteriorly bilaterally. ABDOMEN: Soft and nontender to palpation. EXTREMITIES: No clubbing, cyanosis, or edema. He withdrawals with all 4 extremities to pain. LABORATORY DATA: White blood cell count 8.5, hematocrit 34.9, and platelet count 148. PH of 7.27, pCO2 of 56, PO2 of 101, SIMV rate 10, tidal volume 500, PEEP 5, pressure support 10, FiO2 40%. Sodium 135, potassium 4.5, chloride 106, CO2 of 25, BUN 13, creatinine 1.1, and glucose 165. His chest x-ray shows question of blunting of left costophrenic angle, ET tube is in good position. ASSESSMENT: 1. Status post seizure episode. 2. Question of stroke. 3. Hypertension, out of control at the time of admission. 4. History of decreased ejection fraction. 5. History of coronary artery disease. 6. Blindness. 7. Diabetes with complications consisting of retinopathy and neuropathy. PLAN: I will go ahead and go up on the patient's respiratory rate to compensate for his hypoventilation. He is scheduled to have an MRI, so we may need a paralytic for that. He will be kept intubated until his neurologic status improves. Start tube feeds tomorrow. Job ID: [id number]
--- NOTE | 2019-06-06 11:38 | CON ---
DATE OF CONSULTATION: 06/06/2019 CHIEF COMPLAINT: Seizure. This is a Telemedicine consult. HISTORY OF PRESENT ILLNESS: The patient was brought in with altered mental status and I reviewed the medical record. No family member was available and history was mainly obtained from the medical record. The patient is a 78-year-old man with known history of previous strokes, multiple episodes of syncope and falls. He has had cardiac issues and he was seeing Dr. Watt, heel stainer. The patient has a loop recorder as well. He was sitting down and started to become drowsy and he was unresponsive and he started to shake on the right side of his face, arm, and leg , which lasted a few minutes and he had one more episode of this prior to this event, by the time EMS arrived and this was thought to be a seizure and he was given Ativan and he was intubated for airway protection and brought in. CT of the head is negative. CT angio showed stenosis of left cervical internal carotid artery, moderate stenosis of the right cervical internal carotid artery and occlusion of distal right vertebral artery as well. No intracranial occlusions are reported. REVIEW OF SYSTEMS: Unable to obtain. PREVIOUS MEDICAL HISTORY: Coronary artery disease, status post coronary artery bypass graft. Bicuspid aortic valve, status post replacement with a porcine valve. Atrial fibrillation. He was on Pradaxa prior to coming in to the hospital. Legally blind. Cardiomyopathy with systolic dysfunction with EF of 40%-45%, chronic kidney disease, previous stroke, insulin-dependent diabetes, diabetic retinopathy, diabetic neuropathy. PAST SURGICAL HISTORY: Cholecystectomy, coronary artery bypass graft, aortic valve replacement, bilateral cataract removal, previous cardioversion, event monitor placement. SOCIAL HISTORY: Nonsmoker. No drug abuse or alcohol use. His son is a heel stainer and the patient lives in an assisted living. FAMILY HISTORY: Mother at age 74 from an [place]. Father at 88 from an [place]. No family history of stroke was recorded in the chart. ALLERGIES: HE SEEMS TO BE ALLERGIC TO SULFA ANTIBIOTICS AND PREDNISONE, AMLODIPINE, CARVEDILOL. MEDICATIONS: From the chart noted. Per chart, he was on Xarelto at home. LABORATORY WORKUP: White count is 8.5, hemoglobin 12.1, hematocrit 34.9, platelet count 148. Chemistry: Sodium 140, potassium 3.5, chloride 106, bicarb 25, BUN 13, creatinine 1.13, glucose 167. Lipid profile within normal limits. His CT scan and CTA are as recorded. MRI is currently pending. PHYSICAL EXAMINATION: VITAL SIGNS: Temperature is 98.7 and his blood pressure 137/73, heart rate 76, respiratory rate 20, O2 saturation 100%. He is on a ventilator. GENERAL: The patient is intubated and is on the ventilator and is sedated and once sedation is stopped, the patient moves about very quickly within few minutes. NEURO: Cranial nerves 2-12, no facial asymmetry noted. Pupils are reactive. He has gag reflex and cough reflex. Motor exam, he is moving all four extremities rapidly once the propofol is stopped even for a few minutes. Deep tendon reflexes were absent. CHEST: Clear vesicular breathing. CARDIOVASCULAR: S1, S2 heard. No murmurs. IMPRESSION: The patient is a 78-year-old man with history of possible seizure. He also has history of cardiac issues as well as syncopal events in the past. Based on a CT angio, all the syncopal events could be secondary to the carotid artery disease, at this time; however, he seems to have had a seizure and right-sided twitching which indicate some decline in perfusion of the left side of the brain due to complete stenosis of the left ICA. He might have had ischemic event. Based on current exam, he does not have any focal weakness. Therefore, this could be more localized vascular event. Diagnosis is likely seizure with stroke. RECOMMENDATIONS: Please complete MRI when you can. If he continues to have any seizures, we can start Keppra and I will follow up the patient with you tomorrow. Job ID: [id number] MTDD
--- NOTE | 2019-06-06 12:40 | MRI ---
EXAM: MRI of the brain without contrast HISTORY: Strokelike symptoms. 2 witnessed seizures by the family. Expressive and receptive aphasia. COMPARISON: CT brain 06/05/2019 TECHNIQUE: Multiplanar multisequence MR images were obtained of the brain without IV contrast. FINDINGS: Scattered foci of high T2/FLAIR signal in the subcortical and periventricular white matter are likely secondary to small vessel ischemic disease. There are 2 small remote lacunar infarctions in the bilateral cerebellar hemispheres. No restricted diffusion. No hydronephrosis. No extra-axial fluid collection or intracranial hemorrhage. The expected flow voids are present. Corpus callosum, pituitary, and craniocervical junction are within normal limits. The calvarium and overlying soft tissues are unremarkable. The paranasal sinuses and mastoid air cells are well aerated. IMPRESSION: No evidence of acute intracranial abnormality.
[2019-06-06] MEDS: Enoxaparin Sodium 80 MG/0.8 ML SYRINGE SC SCH ×2 (13:19→20:36)
[2019-06-06] MEDS: Aspirin 300 MG Suppository PR SCH (13:25)
[2019-06-06] MEDS: Sodium Chloride 0.9% 1,000 ML IV SCH (14:00)
[2019-06-06] MEDS: Atorvastatin Calcium 40 MG TAB PO SCH (20:36)
[2019-06-07] MEDS: Propofol 1,000 MG/100 ML VIAL IV PRN (01:28)
[2019-06-07] MEDS: Sodium Chloride 0.9% 1,000 ML IV SCH ×2 (03:18→20:31)
[2019-06-07 03:32] LABS: #Eosinphils 0.1 thou/uL (0.0-0.7); #Lymphocytes 1.2 thou/uL (1.20-3.40); #Monocytes 0.7 thou/uL (0.11-0.59); %Basophils 0.2 % (0.0-1.0); %Eosinophils 0.6 % (0.0-10.0); %Lymphocytes 10.3 % (21.0-51.0); %Monocytes 6.1 % (0.0-10.0); %Neutrophils 82.8 % (42.0-75.0); Hemoglobin 11.5 g/dL (14.0-18.0); Mean Corpuscular HGB CONC 33.5 g/dL (32.0-36.0); Mean Corpuscular Hemoglobin 32.7 pg (27.0-31.0); Mean Corpuscular Volume 97.8 fL (78.0-98.0); Mean Platelet Volume 7.4 fL (7.4-10.4); Platelet Count 160 thou/uL (130-400); RBC Distribution Width 13.2 % (11.5-14.5); Red Blood Cell (RBC) Count 3.51 mill/uL (4.70-6.10)
[2019-06-07 03:51] LABS: Anion Gap 17 mmol/L (10-20); BUN (Urea Nitrogen) 18 mg/dL (8.4-25.7); Calc. Creatinine Clearance 47 mL/min (70-130); Calcium 8.5 mg/dL (7.8-10.44); Carbon Dioxide 20 mmol/L (23-31); Chloride 109 mmol/L (98-107); Estimated GFR-MDRD 42; Glucose 134 mg/dL (83-110); Potassium 3.7 mmol/L (3.5-5.1); Sodium 142 mmol/L (136-145)
--- NOTE | 2019-06-07 08:00 | RAD ---
EXAM: Single view of the chest HISTORY: Pneumonia COMPARISON: 06/05/2019 FINDINGS: Single view of the chest shows an enlarged but stable cardiomediastinal silhouette. The pa tient is status post CABG. The lines and tubes are unchanged in position. A cardiac monitoring device projects over the left chest wall. There appears to be a small left pleural effusion with adj acent atelectasis. The bones are unremarkable. IMPRESSION: Stable exam
[2019-06-07 08:05] LABS: ALV-art Gradient 138.675 (0-20); Actual Bicarbonate (HCO3a) 20.9 mEq/L (22-28); Base Excess (BEa) -1.7 mEq/L (-2.0 to +3.0); CO2 Tension 28.9 mmHg (35.0-45.0); Calcium, Ionized 1.12 mmol/L (1.12-1.30); Carboxyhemoglobin (COHb) 0.6 gm% (0.0-3.0); Hemoglobin (Hb) 11.9 g/dL (14.0-18.0); O2 Tension (PaO2) 110.4 mmHg (> 70.0); Potassium - ABG Lab 3.52 mmol/L (3.70-5.30); Puncture Site LBA; pH, Arterial 7.48 (7.35-7.45)
--- NOTE | 2019-06-07 08:48 | PDOC.HOSPP ---
- Subjective Encounter Date: 06/07/19 (f/u respiratory failure) Encounter Time: 08:46 Subjective: Pt remains intubated and sedated this morning. no reported overnight events. bp's have been well controlled. MRI yesterday negative for acute infarct. - Objective Vital Signs & Weight: Vital Signs (12 hours) Temp Pulse Resp BP 06/07/19 07:56 103 H 142/79 H 06/07/19 06:00 18 06/07/19 04:00 21 H 06/07/19 03:00 98.8 F 06/07/19 02:00 18 06/07/19 00:00 18 06/06/19 23:00 98.5 F 06/06/19 22:00 18 Weight Admit Weight 197 lb 12.074 oz Weight 197 lb 12.074 oz Most Recent Monitor Data Heart Rate from ECG 81 NIBP 134/84 NIBP BP-Mean 100 Respiration from ECG 18 SpO2 100 I&O: 06/06/19 06/07/19 06/08/19 06:59 06:59 06:59 Intake Total 267.1 1610.9 Output Total 1735 1010 Balance -1467.9 600.9 Result Diagrams: 06/07/19 03:21 06/07/19 03:21 Additional Labs: Accuchecks 06/07/19 06/06/19 06/06/19 00:23 20:38 17:38 POC Glucose 126 H 156 H 168 H 06/06/19 06/06/19 06/06/19 13:40 04:00 00:24 POC Glucose 136 H 171 H 157 H 06/05/19 19:49 POC Glucose 245 H EKG Reviewed by me: Yes (tele - a fib with rate in the 90's) Hospitalist ROS - Review of Systems ROS unobtainable: due to endotracheal tube - Medication Medications: Active Medications Generic Name Dose Route Start Last Admin Trade Name Freq PRN Reason Stop Dose Admin Aspirin 300 mg 06/06/19 09:00 06/06/19 13:25 Aspirin [place] 300 mg DAILY ASHLY Administration Atorvastatin Calcium 40 mg 06/05/19 21:00 06/06/19 20:36 Lipitor PO 40 mg HS ASHLY Administration Enoxaparin Sodium 80 mg 06/05/19 21:00 06/06/19 20:36 Lovenox SC 80 mg 0900,2100 ASHLY Administration Famotidine 20 mg 06/05/19 21:00 06/06/19 20:36 Pepcid SLOW IVP 20 mg Q12HR ASHLY Administration Fentanyl Citrate 2,000 mcg/ 100 mls @ 0 mls/hr 06/05/19 17:15 06/05/19 20:36 Sodium Chloride IV 07/05/19 17:15 100 mls INF ASHLY Administration Protocol Per Protocol Sodium Chloride 1,000 mls @ 75 mls/hr 06/06/19 09:15 06/07/19 03:18 Normal Saline 0.9% IV 1,000 mls .[id number] ASHLY Administration Insulin Human Lispro 0 units 06/05/19 19:45 06/06/19 18:40 Humalog SC 2 unit .MILD SLIDING SCALE PRN Administration Mild Correctional Scale Insulin Human Lispro 0 units 06/05/19 19:45 06/05/19 20:26 Humalog SC 2 units .BEDTIME SLIDING SC PRN Administration Bedtime Correctional Scale Propofol 1,000 mg 06/05/19 19:38 06/07/19 01:28 Diprivan IV 07/05/19 19:38 1,000 mg INF PRN Administration TO ACHIEVE GOAL RASS Protocol Vecuronium [place] 10 mg 06/06/19 09:08 06/06/19 11:33 Norcuron IVP 10 mg Q30MIN PRN Administration Agitation - Exam General Appearance: NAD General - other findings: responds to light touch Heart: no murmur, irregular Respiratory: CTAB, no wheezes, no rales, no ronchi Gastrointestinal: soft, non-distended, normal bowel sounds Extremities: no cyanosis, no clubbing, no edema Neurological - other findings: movement with light touch - left > right Hosp A/P (1) Acute respiratory failure with hypoxia Code(s): J96.01 - ACUTE RESPIRATORY FAILURE WITH HYPOXIA Status: Acute (2) Seizure Code(s): R56.9 - UNSPECIFIED CONVULSIONS Status: Acute (3) Focal neurological deficit Code(s): R29.818 - OTHER SYMPTOMS AND SIGNS INVOLVING THE NERVOUS SYSTEM Status: Acute (4) Paroxysmal atrial fibrillation Code(s): I48.0 - PAROXYSMAL ATRIAL FIBRILLATION Status: Chronic (5) Carotid artery stenosis Code(s): I65.29 - OCCLUSION AND STENOSIS OF UNSPECIFIED CAROTID ARTERY Status : Chronic Qualifiers: Laterality: left Qualified Code(s): I65.22 - Occlusion and stenosis of left carotid artery (6) Coronary artery disease Code(s): I25.10 - ATHSCL HEART DISEASE OF [place] CORONARY ARTERY W/O ANG PCTRS Status: Chronic Qualifiers: Coronary Disease-Associated Artery/Lesion type: bypass graft (7) DM2 (diabetes mellitus, type 2) Status: Chronic Qualifiers: Diabetes mellitus superintendent terminal insulin use: with halfway use (8) MARIA TERESA (acute kidney injury) Code(s): N17.9 - ACUTE KIDNEY FAILURE, UNSPECIFIED Status: Acute - Plan Appreciate Pulmonology consult - vent adjusted yesterday and awaiting improvement in neuro status Appreciate Neuro consult - consideration of anti-seizure meds - MRI negative Continue selective home meds Insulin sliding scale as needed - blood sugars controlled currently, likely will need this if tube feeds initiated today Rate controlled A Fib MARIA TERESA in the context of CKD -based on lab values during this admission, although creatinine higher in the past. Will check renal ultrasound dvt prophy - not indicated, on full dose lovenox gi prophy - IV pepcid code status full pt remains at high risk in current condition
[2019-06-07] MEDS: Enoxaparin Sodium 80 MG/0.8 ML SYRINGE SC SCH ×2 (09:32→20:30)
[2019-06-07] MEDS: Famotidine/PF 20 mg/2ml Vial SLOW IVP SCH (09:32)
[2019-06-07] MEDS: Aspirin 300 MG Suppository PR SCH (09:32)
[2019-06-07] MEDS: HumaLOG 300 UNITS/3 ML VIAL SC PRN (10:24)
[2019-06-07] MEDS ORDERED: DC Sedation Protocol FS ONE (10:50)
--- NOTE | 2019-06-07 12:04 | PRG ---
DATE OF SERVICE: 06/07/2019 TIME SPENT: 35 minutes of critical care time. SUBJECTIVE: The patient remains intubated on mechanical ventilation. There have been no acute changes overnight. His MRI was negative. He had no further seizure activity. OBJECTIVE: VITAL SIGNS: His temperature is at 98.9, pulse 98, blood pressure 95/56, O2 saturation 93%. Intake 1610, output 1010. NEUROLOGIC: He will wake up. He moves around. He is currently on propofol and fentanyl and I am having that stopped. HEENT: He keeps his eyes closed and will not let me open him. Oropharynx is clear except for endotracheal tube in place. NECK: No adenopathy or JVD. CHEST: Clear to auscultation anteriorly. CARDIAC: S1 and S2. Regular. ABDOMEN: Soft. EXTREMITIES: No edema. IMAGING: His chest x-ray shows blunting of left costophrenic angle, which is unchanged. LABORATORY DATA: Sodium is 142, potassium 3.7, chloride 109, CO2 of 20, BUN 18, creatinine 1.6, glucose 185. A pH 7.48, pCO2 of 28, pO2 of 110 on SIMV rate 18, tidal volume 500, PEEP 5, pressure support 10, and FiO2 of 40%. White blood cell count 12, hematocrit 34, and platelet count 160. ASSESSMENT: 1. Status post possible seizure. 2. No evidence of stroke by MRI. 3. Hypertension, out of control at the time of admission. 4. Decreased ejection fraction. History of coronary artery disease. PLAN: I will stop the sedation and extubate the patient and observe. Job ID: [id number]
[2019-06-07] MEDS ORDERED: Lorazepam 2 MG/ML VIAL SLOW IVP PRN (16:14)
--- NOTE | 2019-06-07 19:42 | ULT ---
BILATERAL RENAL ULTRASOUND: History: Acute kidney injury. Comparison: None. Technique: Multiplanar grayscale and color doppler images were obtained in a renal ultrasound. FINDINGS: The kidneys are normal in echogenicity without hydronephrosis or calculi and measure 10.1 and 10.3 cm in length on the right and left, respectively. The urinary bladder is decompressed by a Lala cathet er. IMPRESSION: Unremarkable renal ultrasound. POS: C
[2019-06-07] MEDS: Atorvastatin Calcium 40 MG TAB PO SCH (20:31)
[2019-06-08 04:06] LABS: Anion Gap 19 mmol/L (10-20); BUN (Urea Nitrogen) 30 mg/dL (8.4-25.7); Calc. Creatinine Clearance 33 mL/min (70-130); Carbon Dioxide 17 mmol/L (23-31); Chloride 109 mmol/L (98-107); Estimated GFR-MDRD 27; Glucose 192 mg/dL (83-110); Potassium 4.3 mmol/L (3.5-5.1); Sodium 141 mmol/L (136-145)
[2019-06-08 04:17] LABS: Band 16 % (5-11); Hemoglobin 11.1 g/dL (14.0-18.0); Lymphocytes 4 % (21-51); MDiff Complete? YES; Mean Corpuscular HGB CONC 32.4 g/dL (32.0-36.0); Mean Corpuscular Hemoglobin 32.3 pg (27.0-31.0); Mean Corpuscular Volume 99.6 fL (78.0-98.0); Mean Platelet Volume 9.2 fL (7.4-10.4); Monocytes 4 % (0-10); Neutrophil 76 % (42-75); Platelet Count 127 thou/uL (130-400); Platelet Morphology Comment Appears Adequate; RBC Distribution Width 13.4 % (11.5-14.5); Red Blood Cell (RBC) Count 3.45 mill/uL (4.70-6.10); White Blood Cell (WBC) Count 14.3 thou/uL (4.8-10.8)
[2019-06-08] MEDS: Sodium Chloride 0.9% 1,000 ML IV SCH ×3 (06:32→18:06)
--- NOTE | 2019-06-08 07:48 | RAD ---
EXAM: Single view of the chest HISTORY: Pneumonia COMPARISON: 06/07/2019 FINDINGS: Single view of the chest shows an enlarged but stable cardiomediastinal silhouette. The pa tient is status post CABG. The endotracheal tube and NG tube have been removed. Opacity seen in the left lung base which likely represents an infiltrate and adjacent pleural effusion. The bones are unremarkable. IMPRESSION: Stable exam status post extubation.
--- NOTE | 2019-06-08 08:36 | PRG ---
DATE OF SERVICE: 06/08/2019 SUBJECTIVE: The patient was extubated yesterday. He will wake up. He has no complaints. OBJECTIVE: VITAL SIGNS: Temperature 98.1, pulse 80, blood pressure 148/71. HEENT: Unremarkable. NECK: No JVD. CHEST: Clear to auscultation. CARDIAC: S1, S2, regular. ABDOMEN: Soft. EXTREMITIES: No edema. LABORATORY DATA: White blood cell count 14.3, hematocrit 34.4, and platelet count 127. Sodium 141, potassium 4.3, chloride 109, CO2 of 17, BUN 30, creatinine 2.3, and glucose 192. ASSESSMENT: 1. Status post possible seizure. 2. Hypertension. 3. Decreased ejection fraction. 4. Renal insufficiency. PLAN: The patient can be transferred out to the floor with a monitored bed and a dysphagia screen to make sure he can swallow. Job ID: [id number]
[2019-06-08] MEDS: Aspirin 300 MG Suppository PR SCH (09:40)
[2019-06-08] MEDS: Enoxaparin Sodium 80 MG/0.8 ML SYRINGE SC SCH ×2 (09:40→20:21)
[2019-06-08] MEDS: Famotidine/PF 20 mg/2ml Vial SLOW IVP SCH (09:40)
[2019-06-08] MEDS: HumaLOG 300 UNITS/3 ML VIAL SC PRN ×3 (09:41→16:21)
--- NOTE | 2019-06-08 10:45 | PDOC.HOSPP ---
- Subjective Subjective: Patient is transfer out of the unit today. He is sitting comfortable in the chair. No overnight issues at this time. No reported seizure events. - Objective Vital Signs & Weight: Vital Signs (12 hours) Temp Pulse Ox 06/08/19 07:48 96 06/08/19 07:00 98.1 F 06/08/19 04:00 97.4 F L 06/08/19 00:00 97.7 F 96 Weight Admit Weight 197 lb 12.074 oz Weight 197 lb 12.074 oz Most Recent Monitor Data Heart Rate from ECG 84 NIBP 149/99 NIBP BP-Mean 115 Respiration from ECG 36 SpO2 100 I&O: 06/07/19 06/08/19 06/09/19 06:59 06:59 06:59 Intake Total 1610.9 2106 100 Output Total 1010 645 50 Balance 600.9 1461 50 Result Diagrams: 06/08/19 03:28 06/08/19 03:28 Additional Labs: Accuchecks 06/08/19 06/08/19 06/07/19 08:30 06:29 21:14 POC Glucose 186 H 193 H 198 H Hospitalist ROS - Review of Systems Constitutional: denies: fever, chills, sweats, weakness, malaise, other Eyes: denies: pain, vision change, conjunctivae inflammation, eyelid inflammation, redness, other ENT: denies: ear pain, ear discharge, nose pain, nose discharge, nose congestion , mouth pain, mouth swelling, throat pain, throat swelling, other Respiratory: denies: cough, dry, shortness of breath, hemoptysis, SOB with excertion, pleuritic pain, sputum, wheezing, other Cardiovascular: denies: chest pain, palpitations, orthopnea, paroxysmal noc. dyspnea, edema, light headedness, other Gastrointestinal: denies: nausea, vomiting, abdominal pain, diarrhea, constipation, melena, hematochezia, other Genitourinary: denies: dysuria, frequency, incontinence, hematuria, retention, other Musculoskeletal: denies: neck pain, shoulder pain, arm pain, back pain, hand pain, leg pain, foot pain, other Skin: denies: rash, lesions, ino, bruising, other Neurological: denies: weakness, numbness, incoordination, change in speech, confusion, seizures, other - Medication Medications: Active Medications Generic Name Dose Route Start Last Admin Trade Name Freq PRN Reason Stop Dose Admin Aspirin 300 mg 06/06/19 09:00 06/08/19 09:40 Aspirin [place] 300 mg DAILY ASHLY Administration Atorvastatin Calcium 40 mg 06/05/19 21:00 06/07/19 20:31 Lipitor PO Not Given HS ASHLY Enoxaparin Sodium 80 mg 06/05/19 21:00 06/08/19 09:40 Lovenox SC 80 mg 0900,2100 ASHLY Administration Famotidine 20 mg 06/08/19 09:00 06/08/19 09:40 Pepcid SLOW IVP 20 mg DAILY ASHLY Administration Sodium Chloride 1,000 mls @ 75 mls/hr 06/06/19 09:15 06/08/19 09:43 Normal Saline 0.9% IV 1,000 mls .[id number] ASHLY Administration Levetiracetam 500 mg/ Device 100 mls @ 200 mls/hr 06/07/19 09:00 06/08/19 09: 51 IVPB 100 mls BID ASHLY Administration Insulin Human Lispro 0 units 06/05/19 19:45 06/08/19 09:41 Humalog SC 2 unit .MILD SLIDING SCALE PRN Administration Mild Correctional Scale Insulin Human Lispro 0 units 06/05/19 19:45 06/05/19 20:26 Humalog SC 2 units .BEDTIME SLIDING SC PRN Administration Bedtime Correctional Scale - Exam General Appearance: awake alert General - other findings: Alert to person, not place or time Eye: PERRL, anicteric sclera ENT: normocephalic atraumatic, no oropharyngeal lesions, moist mucosa Neck: supple, symmetric, no JVD, no thyromegaly, no lymphadenopathy, no carotid bruit Heart: RRR, no murmur, no gallops, no rubs, normal peripheral pulses Respiratory: CTAB, no wheezes, no rales, no ronchi, normal chest expansion, no tachypnea, normal percussion Gastrointestinal: soft, non-tender, non-distended, normal bowel sounds, no palpable masses, no hepatomegaly, no splenomegaly, no bruit Extremities: no cyanosis, no clubbing, no edema Skin: normal turgor, no lesions, no rashes Neurological: cranial nerve grossly intact, normal sensation to touch, no weakness, no focal deficits, no new deficit Musculoskeletal: normal tone, normal strength, no muscle wasting Psychiatric: normal affect, normal behavior Hosp A/P (1) MARIA TERESA (acute kidney injury) Code(s): N17.9 - ACUTE KIDNEY FAILURE, UNSPECIFIED Status: Acute Plan: Renal U/S unremarkable, continue IV fluid challenge and reasses Cr tomorrow. Monitor urine output. Obtaine Urinalysis. (2) Seizure Code(s): R56.9 - UNSPECIFIED CONVULSIONS Status: Acute Plan: Neuro to follow. Continue with Keppra IV for now until patient cleared to tolerate PO. EEG planned for today. Speech reccs NPO for now with ice chips and medication. (3) Carotid artery stenosis Code(s): I65.29 - OCCLUSION AND STENOSIS OF UNSPECIFIED CAROTID ARTERY Status : Chronic Qualifiers: Laterality: left Qualified Code(s): I65.22 - Occlusion and stenosis of left carotid artery (4) Coronary artery disease Code(s): I25.10 - ATHSCL HEART DISEASE OF [place] CORONARY ARTERY W/O ANG PCTRS Status: Chronic Qualifiers: Coronary Disease-Associated Artery/Lesion type: bypass graft Plan: Continue aspirin and statin (5) Paroxysmal atrial fibrillation Code(s): I48.0 - PAROXYSMAL ATRIAL FIBRILLATION Status: Chronic Plan: On lovenox for AC. Will safely resume Xarelto from home in the coming days. (6) DM2 (diabetes mellitus, type 2) Status: Chronic Qualifiers: Diabetes mellitus parts counterman insulin use: with parts counterman use Plan: Sliding scale. Monitor sugars ACHS. (7) Leukocytosis Code(s): D72.829 - ELEVATED WHITE BLOOD CELL COUNT, UNSPECIFIED Status: Acute Plan: No obvious source of infection at this time. CXR unremarkable. No fever. Continue to trend. Obtain UA with culture. - Plan Disposition: Extubated yesterday. Transfer to [facility] today. EEG pending. Will monitor Cr and WBC for tomorrow.
[2019-06-08 12:16] LABS: Bacteria/HPF None Seen HPF (None Seen); Bilirubin Negative (Negative); Blood, Urine 2+ (Negative); Clarity Turbid (Clear); Glucose, Urine (Dipstick) Normal (Negative); Leukocyte Negative Leu/uL (Negative); Nitrite Negative (Negative); Protein, Urine (Dipstick) 100 mg/dL (Neg-Trace); RBC/HPF Greater than 50 HPF (0-3); Squamous Epithelial 0-3 HPF (0-3)
[2019-06-08 12:23] LABS: WBC/HPF 0-3 HPF (0-3)
[2019-06-08 12:24] LABS: Urine Culture Reflex No No
[2019-06-08] MEDS: Atorvastatin Calcium 40 MG TAB PO SCH (20:20)
[2019-06-09 03:48] LABS: #Lymphocytes 0.8 thou/uL (1.20-3.40); #Monocytes 0.6 thou/uL (0.11-0.59); #Neutrophils 10.5 thou/uL (1.40-6.50); %Basophils 0.2 % (0.0-1.0); %Eosinophils 0.1 % (0.0-10.0); %Lymphocytes 6.5 % (21.0-51.0); %Monocytes 4.7 % (0.0-10.0); %Neutrophils 88.5 % (42.0-75.0); Hemoglobin 10.8 g/dL (14.0-18.0); Mean Corpuscular HGB CONC 32.8 g/dL (32.0-36.0); Mean Corpuscular Hemoglobin 33.2 pg (27.0-31.0); Mean Platelet Volume 7.8 fL (7.4-10.4); Platelet Count 160 thou/uL (130-400); RBC Distribution Width 13.4 % (11.5-14.5); Red Blood Cell (RBC) Count 3.24 mill/uL (4.70-6.10); White Blood Cell (WBC) Count 11.8 thou/uL (4.8-10.8)
[2019-06-09 04:08] LABS: Anion Gap 17 mmol/L (10-20); BUN (Urea Nitrogen) 34 mg/dL (8.4-25.7); Calc. Creatinine Clearance 43 mL/min (70-130); Carbon Dioxide 19 mmol/L (23-31); Chloride 112 mmol/L (98-107); Estimated GFR-MDRD 38; Glucose 152 mg/dL (83-110); Potassium 3.8 mmol/L (3.5-5.1); Sodium 144 mmol/L (136-145)
[2019-06-09] MEDS: Aspirin 300 MG Suppository PR SCH (07:48)
--- NOTE | 2019-06-09 08:12 | PDOC.HOSPP ---
- Subjective Subjective: Sitting comfortably in the chair. Alert to person but not place or time. No complaints at this time. - Objective Vital Signs & Weight: Vital Signs (12 hours) Temp Pulse Ox 06/09/19 07:07 100 06/09/19 07:00 98.5 F 06/09/19 03:00 98.3 F 06/08/19 23:00 98.6 F Weight Admit Weight 197 lb 12.074 oz Weight 197 lb 12.074 oz Most Recent Monitor Data Heart Rate from ECG 89 NIBP 161/89 NIBP BP-Mean 113 Respiration from ECG 19 SpO2 100 I&O: 06/08/19 06/09/19 06/10/19 06:59 06:59 06:59 Intake Total 2106 1668 0 Output Total 645 865 120 Balance 1461 803 -120 Result Diagrams: 06/09/19 03:18 06/09/19 03:18 Additional Labs: Accuchecks 06/08/19 06/08/19 06/08/19 23:16 19:57 16:17 POC Glucose 125 H 120 H 165 H 06/08/19 06/08/19 12:18 08:30 POC Glucose 219 H 186 H Hospitalist ROS - Review of Systems Respiratory: denies: cough, dry, shortness of breath, hemoptysis, SOB with excertion, pleuritic pain, sputum, wheezing, other Cardiovascular: denies: chest pain, palpitations, orthopnea, paroxysmal noc. dyspnea, edema, light headedness, other Gastrointestinal: denies: nausea, vomiting, abdominal pain, diarrhea, constipation, melena, hematochezia, other Genitourinary: denies: dysuria, frequency, incontinence, hematuria, retention, other - Medication Medications: Active Medications Generic Name Dose Route Start Last Admin Trade Name Freq PRN Reason Stop Dose Admin Aspirin 300 mg 06/06/19 09:00 06/09/19 07:48 Aspirin [place] 300 mg DAILY [facility] Administration Atorvastatin Calcium 40 mg 06/05/19 21:00 06/08/19 20:20 Lipitor PO Not Given HS [facility] Enoxaparin Sodium 80 mg 06/08/19 21:00 06/08/19 20:21 Lovenox SC 80 mg 0900,2100 [facility] Administration Famotidine 20 mg 06/08/19 09:00 06/08/19 09:40 Pepcid SLOW IVP 20 mg DAILY ASHLY Administration Sodium Chloride 1,000 mls @ 75 mls/hr 06/06/19 09:15 06/08/19 18:06 Normal Saline 0.9% IV 1,000 mls .[id number] ASHLY Administration Levetiracetam 500 mg/ Device 100 mls @ 200 mls/hr 06/07/19 09:00 06/08/19 20: 21 IVPB 100 mls BID ASHLY Administration Insulin Human Lispro 0 units 06/05/19 19:45 06/08/19 16:21 Humalog SC 2 unit .MILD SLIDING SCALE PRN Administration Mild Correctional Scale Insulin Human Lispro 0 units 06/05/19 19:45 06/05/19 20:26 Humalog SC 2 units .BEDTIME SLIDING SC PRN Administration Bedtime Correctional Scale - Exam General Appearance: awake alert, ill appearing Eye: PERRL ENT: normocephalic atraumatic Neck: supple, no JVD, no carotid bruit Heart: RRR, no murmur, no gallops, no rubs Respiratory: CTAB, no wheezes, no rales, no ronchi Gastrointestinal: soft, non-tender, non-distended, normal bowel sounds Extremities: no cyanosis, no clubbing Skin: no rashes Skin - other findings: Skin bruising on forearms Neurological: no focal deficits Musculoskeletal: diffuse muscle atrophy Psychiatric: oriented to person Hosp A/P (1) MARIA TERESA (acute kidney injury) Code(s): N17.9 - ACUTE KIDNEY FAILURE, UNSPECIFIED Status: Acute (2) Seizure Code(s): R56.9 - UNSPECIFIED CONVULSIONS Status: Acute (3) Carotid artery stenosis Code(s): I65.29 - OCCLUSION AND STENOSIS OF UNSPECIFIED CAROTID ARTERY Status : Chronic Qualifiers: Laterality: left Qualified Code(s): I65.22 - Occlusion and stenosis of left carotid artery (4) Coronary artery disease Code(s): I25.10 - ATHSCL HEART DISEASE OF [place] CORONARY ARTERY W/O ANG PCTRS Status: Chronic Qualifiers: Coronary Disease-Associated Artery/Lesion type: bypass graft (5) Paroxysmal atrial fibrillation Code(s): I48.0 - PAROXYSMAL ATRIAL FIBRILLATION Status: Chronic (6) DM2 (diabetes mellitus, type 2) Status: Chronic Qualifiers: Diabetes mellitus shelter insulin use: with tank terminal gauger use (7) Leukocytosis Code(s): D72.829 - ELEVATED WHITE BLOOD CELL COUNT, UNSPECIFIED Status: Acute - Plan Continue IV Keppra until swallow eval/therapy Neurology pending evaluation of EEG and will need to change Keppra to oral in the coming days. Continue lovenox BID until able to swallow pills, then can continue his home Xarelto Continue gently hydration with fluids @ 50ml/hr, Cr improving, will continue to trend Leukocytosis is improving as well, likely reactive, UA unremarkable BSG well controlled, continue sliding scale Disposition: PT/OT eval. Consult case management for d/c planning. Possibly will need SNF prior to going back to assisted living for physical therapy pending their reccs. Ongoing speech eval for swallowing.
[2019-06-09] MEDS: Enoxaparin Sodium 80 MG/0.8 ML SYRINGE SC SCH ×2 (08:29→20:36)
[2019-06-09] MEDS: Famotidine/PF 20 mg/2ml Vial SLOW IVP SCH (08:29)
[2019-06-09] MEDS: Sodium Chloride 0.9% 1,000 ML IV SCH ×2 (09:16→20:37)
--- NOTE | 2019-06-09 09:51 | RAD ---
PORTABLE CHEST ONE VIEW: 06/09/2019 4:14 a.m. HISTORY: Pneumonia. FINDINGS: No significant interval changes seen since the previous day's exam. POS: [facility]
--- NOTE | 2019-06-09 10:00 | PRG ---
DATE OF SERVICE: 06/09/2019 SUBJECTIVE: He awakens very easily today. He followed all commands for me. Did not appear to be in any distress. OBJECTIVE: VITAL SIGNS: On exam; his temperature 98.5, pulse 98, blood pressure 181/99, and O2 saturation 100%. HEENT: Clear. NECK: No adenopathy or JVD. CHEST: Clear. CARDIAC: S1 and S2. Regular. ABDOMEN: Soft. EXTREMITIES: No edema. LABORATORY DATA: White blood cell count 11.8, hematocrit 32.8, and platelet count 160. Sodium 144, potassium 3.8, chloride 112, CO2 of 19, BUN 34, creatinine 1.7, and glucose 152. ASSESSMENT: 1. Status post seizure. 2. Hypertension. 3. Reduced ejection fraction. 4. Improved kidney parameters. PLAN: The patient can be transferred out to the floor. His pulmonary status is stable. I have no further recommendations. Pulmonary will sign off. Job ID: [id number]
--- NOTE | 2019-06-09 10:22 | PRG ---
DATE OF SERVICE: 06/07/2019 CHIEF COMPLAINT: Altered mental status. INTERVAL HISTORY: The patient remains altered and whenever sedation is turned down, he is kicking and moving. OBJECTIVE: NEUROLOGICAL: When sedation is turned off, the patient is moving all extremities. Pupils 2 mm. VITAL SIGNS: Blood pressure was 102/58, temperature 98.4, and there are times when his blood pressure is quite low up to 85/41 as well. IMPRESSION: The patient with likely seizure and altered mental status relating to it. We will go ahead and add Keana paulara for his seizure activity. I discussed this case with Dr. Hinojosa who called me later this afternoon and made me aware that there is a video recording by the family and the family brought it in. When we visited this morning, family was not present. I suggested that they obtain an EEG in the a.m. and we will request Dr. Riojas to follow up with the patient tomorrow and review the video as well. Job ID: [id number]
[2019-06-09] MEDS: HumaLOG 300 UNITS/3 ML VIAL SC PRN ×2 (11:44→17:01)
[2019-06-09] MEDS: Atorvastatin Calcium 40 MG TAB PO SCH (20:37)
[2019-06-10 03:51] LABS: #Lymphocytes 0.7 thou/uL (1.20-3.40); #Monocytes 0.9 thou/uL (0.11-0.59); #Neutrophils 10.7 thou/uL (1.40-6.50); %Basophils 0.2 % (0.0-1.0); %Eosinophils 0.3 % (0.0-10.0); %Lymphocytes 5.8 % (21.0-51.0); %Monocytes 7.2 % (0.0-10.0); %Neutrophils 86.5 % (42.0-75.0); Hemoglobin 11.3 g/dL (14.0-18.0); Mean Corpuscular HGB CONC 32.6 g/dL (32.0-36.0); Mean Corpuscular Hemoglobin 32.8 pg (27.0-31.0); Mean Platelet Volume 8.1 fL (7.4-10.4); Platelet Count 175 thou/uL (130-400); RBC Distribution Width 13.1 % (11.5-14.5); Red Blood Cell (RBC) Count 3.46 mill/uL (4.70-6.10); White Blood Cell (WBC) Count 12.3 thou/uL (4.8-10.8)
[2019-06-10 04:08] LABS: Anion Gap 15 mmol/L (10-20); BUN (Urea Nitrogen) 28 mg/dL (8.4-25.7); Calc. Creatinine Clearance 62 mL/min (70-130); Calcium 8.1 mg/dL (7.8-10.44); Carbon Dioxide 19 mmol/L (23-31); Chloride 111 mmol/L (98-107); Estimated GFR-MDRD 57; Glucose 215 mg/dL (83-110); Potassium 3.4 mmol/L (3.5-5.1); Sodium 142 mmol/L (136-145)
[2019-06-10] MEDS: HumaLOG 300 UNITS/3 ML VIAL SC PRN ×3 (06:12→16:56)
--- NOTE | 2019-06-10 09:27 | PDOC.HOSPP ---
- Subjective Subjective: Mr. Barnes has been cleared by speech to tolerate PO intake this AM. He is working with PT. No overnight reported symptoms or complaints. - Objective Vital Signs & Weight: Vital Signs (12 hours) Temp 06/10/19 07:15 97.7 F 06/10/19 04:16 98 F Weight Admit Weight 197 lb 12.074 oz Weight 171 lb 4.8 oz Most Recent Monitor Data Heart Rate from ECG 102 NIBP 140/82 NIBP BP-Mean 101 Respiration from ECG 22 SpO2 100 I&O: 06/09/19 06/10/19 06/11/19 06:59 06:59 06:59 Intake Total 1668 1469 Output Total 865 1330 Balance 803 139 Result Diagrams: 06/10/19 03:25 06/10/19 03:25 Additional Labs: Accuchecks 06/10/19 06/09/19 06/09/19 06:14 20:44 17:01 POC Glucose 221 H 199 H 192 H 06/09/19 11:45 POC Glucose 262 H Hospitalist ROS - Review of Systems Respiratory: denies: cough, dry, shortness of breath, hemoptysis, SOB with excertion, pleuritic pain, sputum, wheezing, other Cardiovascular: denies: chest pain, palpitations, orthopnea, paroxysmal noc. dyspnea, edema, light headedness, other Gastrointestinal: denies: nausea, vomiting, abdominal pain, diarrhea, constipation, melena, hematochezia, other Genitourinary: denies: dysuria, frequency, incontinence, hematuria, retention, other - Medication Medications: Active Medications Generic Name Dose Route Start Last Admin Trade Name Rolando PRN Reason Stop Dose Admin Aspirin 300 mg 06/06/19 09:00 06/09/19 07:48 Aspirin [place] 300 mg DAILY ASHLY Administration Atorvastatin Calcium 40 mg 06/05/19 21:00 06/09/19 20:37 Lipitor PO 40 mg HS ASHLY Administration Famotidine 20 mg 06/08/19 09:00 06/09/19 08:29 Pepcid SLOW IVP 20 mg DAILY ASHLY Administration Levetiracetam 500 mg/ Device 100 mls @ 200 mls/hr 06/07/19 09:00 06/09/19 20: 37 IVPB 100 mls BID ASHLY Administration Sodium Chloride 1,000 mls @ 50 mls/hr 06/09/19 08:30 06/09/19 20:37 Normal Saline 0.9% IV 1,000 mls .Q20H ASHLY Administration Insulin Human Lispro 0 units 06/05/19 19:45 06/10/19 06:12 Humalog SC 3 unit .MILD SLIDING SCALE PRN Administration Mild Correctional Scale Insulin Human Lispro 0 units 06/05/19 19:45 06/05/19 20:26 Humalog SC 2 units .BEDTIME SLIDING SC PRN Administration Bedtime Correctional Scale - Exam General Appearance: NAD, awake alert General - other findings: Elderly, frail appearing Eye: PERRL, anicteric sclera ENT: normocephalic atraumatic, no oropharyngeal lesions, moist mucosa Neck: supple, symmetric, no JVD, no thyromegaly, no lymphadenopathy, no carotid bruit Heart: RRR, no murmur, no gallops, no rubs, normal peripheral pulses Respiratory: CTAB, no wheezes, no rales, no ronchi, normal chest expansion, no tachypnea, normal percussion Gastrointestinal: soft, non-tender, non-distended, normal bowel sounds, no palpable masses, no hepatomegaly, no splenomegaly, no bruit Extremities: no cyanosis, no clubbing, no edema Skin: normal turgor, no lesions, no rashes Neurological: cranial nerve grossly intact, normal sensation to touch, no weakness, no focal deficits, no new deficit Musculoskeletal: normal tone, normal strength, no muscle wasting Psychiatric: normal affect, normal behavior, A&O x 3 Hosp A/P (1) Seizure Code(s): R56.9 - UNSPECIFIED CONVULSIONS Status: Acute (2) MARIA TERESA (acute kidney injury) Code(s): N17.9 - ACUTE KIDNEY FAILURE, UNSPECIFIED Status: Acute Plan: Improved (3) Carotid artery stenosis Code(s): I65.29 - OCCLUSION AND STENOSIS OF UNSPECIFIED CAROTID ARTERY Status : Chronic Qualifiers: Laterality: left Qualified Code(s): I65.22 - Occlusion and stenosis of left carotid artery (4) Coronary artery disease Code(s): I25.10 - ATHSCL HEART DISEASE OF [place] CORONARY ARTERY W/O ANG PCTRS Status: Chronic Qualifiers: Coronary Disease-Associated Artery/Lesion type: bypass graft (5) Paroxysmal atrial fibrillation Code(s): I48.0 - PAROXYSMAL ATRIAL FIBRILLATION Status: Chronic (6) DM2 (diabetes mellitus, type 2) Status: Chronic Qualifiers: Diabetes mellitus senior living insulin use: with terminal supervisor use (7) Leukocytosis Code(s): D72.829 - ELEVATED WHITE BLOOD CELL COUNT, UNSPECIFIED Status: Acute - Plan Cleared for PO intake, switch Keppra to PO Neurology pending evaluation of EEG D/c lovenox, will switch to PO Xarelto from home Resume home aspirin and statin BSG well controlled, continue sliding scale Disposition: PT/OT tx. d/c planning. Pending placement in [facility] swing bed as per CM.
[2019-06-10] MEDS ORDERED: levETIRAcetam 500 MG TAB PO SCH (09:30)
[2019-06-10] MEDS ORDERED: Aspirin Chewable 81 MG TAB ONE (10:06)
[2019-06-10] MEDS: Famotidine/PF 20 mg/2ml Vial SLOW IVP SCH (10:10)
[2019-06-10] MEDS: Aspirin 300 MG Suppository PR SCH (10:12)
[2019-06-10] MEDS: Enoxaparin Sodium 80 MG/0.8 ML SYRINGE SC SCH (10:13)
[2019-06-10] MEDS: Rivaroxaban 15 MG TAB PO SCH (16:56)
[2019-06-10] MEDS: Sodium Chloride 0.9% 1,000 ML IV SCH (16:59)
[2019-06-10] MEDS ORDERED: Aspirin Chewable 81 MG TAB PO SCH (21:00)
[2019-06-10] MEDS: levETIRAcetam 500 MG TAB PO SCH (21:22)
[2019-06-10] MEDS: Atorvastatin Calcium 40 MG TAB PO SCH (21:22)
[2019-06-11 03:36] LABS: Hemoglobin 10.9 g/dL (14.0-18.0); Platelet Count 173 thou/uL (130-400)
[2019-06-11 03:38] LABS: #Eosinphils 0.1 thou/uL (0.0-0.7); #Lymphocytes 0.8 thou/uL (1.20-3.40); #Monocytes 0.9 thou/uL (0.11-0.59); #Neutrophils 6.3 thou/uL (1.40-6.50); %Basophils 0.1 % (0.0-1.0); %Eosinophils 1.8 % (0.0-10.0); %Lymphocytes 10.2 % (21.0-51.0); %Monocytes 10.8 % (0.0-10.0); %Neutrophils 77.1 % (42.0-75.0); Mean Corpuscular HGB CONC 32.5 g/dL (32.0-36.0); Mean Corpuscular Hemoglobin 31.7 pg (27.0-31.0); Mean Corpuscular Volume 97.4 fL (78.0-98.0); Mean Platelet Volume 7.3 fL (7.4-10.4); Platelet Count 182 thou/uL (130-400); Red Blood Cell (RBC) Count 3.47 mill/uL (4.70-6.10); White Blood Cell (WBC) Count 8.1 thou/uL (4.8-10.8)
[2019-06-11 03:55] LABS: Anion Gap 14 mmol/L (10-20); BUN (Urea Nitrogen) 23 mg/dL (8.4-25.7); Calc. Creatinine Clearance 60 mL/min (70-130); Calcium 7.9 mg/dL (7.8-10.44); Carbon Dioxide 18 mmol/L (23-31); Chloride 111 mmol/L (98-107); Estimated GFR-MDRD 65; Glucose 203 mg/dL (83-110); Potassium 3.1 mmol/L (3.5-5.1); Sodium 140 mmol/L (136-145)
[2019-06-11] MEDS: HumaLOG 300 UNITS/3 ML VIAL SC PRN (06:03)
[2019-06-11] MEDS: levETIRAcetam 500 MG TAB PO SCH (09:43)
[2019-06-11] MEDS: Famotidine/PF 20 mg/2ml Vial SLOW IVP SCH (09:43)
[2019-06-11 11:29] VITALS: BP 168/100
[2019-06-11 12:05] VITALS: TEMP 97.9
[2019-06-11 14:47] VITALS: BMI 25.2
--- NOTE | 2019-06-11 15:04 | PDOC.HOSPP ---
- Subjective Encounter Date: 06/11/19 Encounter Time: 10:45 Subjective: awakens easily, no sob, responds well to verbal stimuli - Objective Vital Signs & Weight: Vital Signs (12 hours) Temp Pulse Pulse BP BP Pulse Ox 06/11/19 12:05 97.9 F 06/11/19 09:10 88 79 168/100 H 147/81 H 06/11/19 07:41 94 L 06/11/19 07:17 97.8 F 06/11/19 03:49 98.4 F Weight Admit Weight 197 lb 12.074 oz Weight 171 lb 4.8 oz Most Recent Monitor Data Heart Rate from ECG 90 NIBP 150/91 NIBP BP-Mean 110 Respiration from ECG 29 SpO2 97 I&O: 06/10/19 06/11/19 06/12/19 06:59 06:59 06:59 Intake Total 1469 2466 Output Total 1330 2100 Balance 139 366 Result Diagrams: 06/11/19 03:26 06/11/19 03:26 Additional Labs: Accuchecks 06/11/19 06/11/19 06/10/19 11:15 05:45 20:11 POC Glucose 220 H 214 H 194 H 06/10/19 16:19 POC Glucose 276 H Hospitalist ROS - Medication Medications: Active Medications Generic Name Dose Route Start Last Admin Trade Name Freq PRN Reason Stop Dose Admin Aspirin 81 mg 06/10/19 21:00 06/10/19 21:22 Aspirin Chewable PO 81 mg HS ASHLY Administration Atorvastatin Calcium 40 mg 06/05/19 21:00 06/10/19 21:22 Lipitor PO 40 mg HS ASHLY Administration Famotidine 20 mg 06/08/19 09:00 06/11/19 09:43 Pepcid SLOW IVP 20 mg DAILY ASHLY Administration Sodium Chloride 1,000 mls @ 50 mls/hr 06/09/19 08:30 06/10/19 16:59 Normal Saline 0.9% IV 1,000 mls .Q20H ASHLY Administration Insulin Human Lispro 0 units 06/05/19 19:45 06/11/19 06:03 Humalog SC 3 unit .MILD SLIDING SCALE PRN Administration Mild Correctional Scale Insulin Human Lispro 0 units 06/05/19 19:45 06/05/19 20:26 Humalog SC 2 units .BEDTIME SLIDING SC PRN Administration Bedtime Correctional Scale Levetiracetam 500 mg 06/10/19 21:00 06/11/19 09:43 Keppra PO 500 mg BID ASHLY Administration Rivaroxaban 15 mg 06/10/19 17:00 06/10/19 16:56 Xarelto PO 15 mg 1700 ASHLY Administration - Exam General Appearance: awake alert Eye: PERRL, anicteric sclera ENT: no oropharyngeal lesions, moist mucosa Neck: supple, no JVD Heart: RRR, no murmur Respiratory: no wheezes, no rales Gastrointestinal: soft, non-tender, non-distended, normal bowel sounds Extremities: no cyanosis, no edema Neurological: cranial nerve grossly intact, no focal deficits Hosp A/P (1) MARIA TERESA (acute kidney injury) Code(s): N17.9 - ACUTE KIDNEY FAILURE, UNSPECIFIED Status: Resolved (2) Seizure Code(s): R56.9 - UNSPECIFIED CONVULSIONS Status: Acute (3) Carotid artery stenosis Code(s): I65.29 - OCCLUSION AND STENOSIS OF UNSPECIFIED CAROTID ARTERY Status : Chronic Qualifiers: Laterality: left Qualified Code(s): I65.22 - Occlusion and stenosis of left carotid artery (4) Coronary artery disease Code(s): I25.10 - ATHSCL HEART DISEASE OF [place] CORONARY ARTERY W/O ANG PCTRS Status: Chronic Qualifiers: Coronary Disease-Associated Artery/Lesion type: bypass graft [place] vs. transplanted heart: [place] heart Associated angina: without angina Qualified Code(s): I25.810 - Atherosclerosis of coronary artery bypass graft(s) without angina pectoris (5) Paroxysmal atrial fibrillation Code(s): I48.0 - PAROXYSMAL ATRIAL FIBRILLATION Status: Chronic (6) Anemia Code(s): D64.9 - ANEMIA, UNSPECIFIED Status: Chronic (7) Physical deconditioning Code(s): R53.81 - OTHER MALAISE Status: Acute (8) DM2 (diabetes mellitus, type 2) Status: Chronic Qualifiers: Diabetes mellitus retirement insulin use: with retirement use - Plan is being accepted to [facility] pt continue keppra, asp, lipitor, xarelto hemostable
[2019-06-11] MEDS: Rivaroxaban 15 MG TAB PO SCH (16:00)
--- NOTE | 2019-06-11 18:15 | DIS ---
DATE OF ADMISSION: 06/05/2019 DATE OF DISCHARGE: 06/11/2019 DISCHARGE DISPOSITION: To [facility]. 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 PROCEDURES DONE DURING HOSPITALIZATION: Ultrasound of bilateral kidneys done was unremarkable. MRI of brain without contrast done showed no evidence of acute intracranial abnormality. CT angio of brain showed severe stenosis of proximal left cervical internal carotid artery, moderate stenosis of 50% of the distal right cervical internal carotid artery just before the artery enters the carotid canal, occlusion of the distal right vertebral artery that extends into the intracranial extent. No evidence of thrombosis or occlusion intracranially. Chest x-ray done showed no focal consolidation or edema. H and H 11 and 33, platelet count 182, white count of 8 on the day of discharge, MCV is 97. Blood gas done on the day of admission showed a pH of 7.40, pCO2 18, PO2 50. Discharge BUN and creatinine are 23 and 1.1. Total cholesterol 105, triglycerides 94, LDL 44, HDL 42. INPATIENT CONSULT: 1. Dr. Latonya Stallings for Neurology. 2. Dr. Vera for Critical Care and pulmonology. DISCHARGE MEDICATIONS: 1. Aspirin 81 mg p.o. daily. 2. Colace 250 mg p.o. daily p.r.n. 3. Humalog sliding scale before meals and at bedtime. 4. Magnesium oxide 500 mg p.o. at bedtime. 5. Multivitamin 1 tablet daily. 6. Xarelto 15 mg p.o. at bedtime. 7. CoQ10 100 mg p.o. at bedtime. 8. Lipitor 40 mg p.o. at bedtime. 9. Florinef 0.1 mg p.o. daily. 10. Keppra 500 mg p.o. twice daily. ALLERGIES: TO SULFA, CARVEDILOL, AND PREDNISONE. DISCHARGE PLAN: The patient is to follow up with his primary care physician Dr. Mehrdad Robb in 1 week. He also needs to his make an appointment to see Dr. Finnegan, cardiothoracic surgeon in 2 to 3 weeks for carotid stenosis. BRIEF COURSE DURING HOSPITALIZATION: The patient initially got admitted on the 27th after having a CT after having seizure activity. He also was lethargic and was not oriented. On arrival in ER, the patient was not protecting his airway and was intubated. The patient was admitted to ICU and had consultation with Dr. Vera for Pulmonology, Dr. Latonya Stallings for Neurology. He was successfully extubated on the . The patient has had slow and gentle recovery. He was placed on Keppra. He has not had any further seizure activity during his stay here. He is deconditioned, but is beginning to ambulate with therapy. He needs to further recuperate at a swing bed in [place] prior to going home. His medications were optimized prior to discharge. He needs to have outpatient followup with Dr. Finnegan once he recovers for Cardiothoracic Surgery outpatient consultation for his left carotid stenosis when he is more stable. He is otherwise hemodynamically stable and has been cleared for discharge by all specialists. A total of 35 minutes was spent on discharge plan. Please see a [id number] documentation for the day of discharge on [employer]. Job ID: [id number]
== END 2019-06-11 16:16 | DRG 100 ==
LOC: ERS 16:51 → CCU 19:30 → IMCU/EMU 06-09 23:00
PROVIDERS: ADMIT Emergency Medicine; ATTEND Emergency Medicine
PROC: 5A1945Z Respiratory Ventilation, 24-96 Consecutive Hours (ICD-10-PCS; principal; 2019-06-05)
DX: R56.9 Unspecified convulsions (principal); J96.01 Acute respiratory failure with hypoxia; I42.9 Cardiomyopathy, unspecified; N17.9 Acute kidney failure, unspecified; E87.2 Acidosis; I25.10 Atherosclerotic heart disease of native coronary artery without angina pectoris; I48.0 Paroxysmal atrial fibrillation; N18.3 Chronic kidney disease, stage 3 (moderate); E11.22 Type 2 diabetes mellitus with diabetic chronic kidney disease; E11.319 Type 2 diabetes mellitus with unspecified diabetic retinopathy without macular edema; E11.40 Type 2 diabetes mellitus with diabetic neuropathy, unspecified; I65.22 Occlusion and stenosis of left carotid artery; R40.2432 Glasgow coma scale score 3-8, at arrival to emergency department; H54.8 Legal blindness, as defined in USA; I12.9 Hypertensive chronic kidney disease with stage 1 through stage 4 chronic kidney disease, or unspecified chronic kidney disease; R29.818 Other symptoms and signs involving the nervous system; D72.829 Elevated white blood cell count, unspecified; D64.9 Anemia, unspecified; R53.81 Other malaise; I65.01 Occlusion and stenosis of right vertebral artery; Z95.1 Presence of aortocoronary bypass graft; Z95.3 Presence of xenogenic heart valve; Z86.73 Personal history of transient ischemic attack (TIA), and cerebral infarction without residual deficits; Z90.49 Acquired absence of other specified parts of digestive tract; Z98.41 Cataract extraction status, right eye; Z98.42 Cataract extraction status, left eye; Z79.82 Long term (current) use of aspirin; Z79.899 Other long term (current) drug therapy
CPT/HCPCS: 31500; 36415; 36416; 51702; 70450; 70496; 70498; 70551; 71045; 76770; 80048; 80053; 80061; 81001; 82550; 82805; 83735; 84484; 85014; 85018; 85025; 85049; 85610; 85730; 86850; 86900; 86901; 93005; 94002; 94003; 94760; 95816; 96361; 96365; J1650; J1953; J2704; J3010; J3490; J7050; S0028

== ENCOUNTER 2019-06-24 13:01 | Inpatient (IN) | payer MEDICARE ==
[2019-06-24 13:56] VITALS: BMI 26.6
[2019-06-24] MEDS ORDERED: Acetaminophen 325 MG TAB PO PRN (16:58)
[2019-06-24] MEDS ORDERED: Dextrose 5% in Water 1,000 ML IV PRN (17:03)
[2019-06-24] MEDS ORDERED: Dextrose 50% Abboject 50 ML SYRINGE SLOW IVP PRN (17:03)
[2019-06-24] MEDS: Sodium Chloride 0.9% 1,000 ML IV SCH (18:28)
[2019-06-24 19:02] LABS: Bacteria/HPF None Seen HPF (None Seen); Bilirubin Negative (Negative); Blood, Urine Negative (Negative); Clarity Clear (Clear); Glucose, Urine (Dipstick) Normal (Negative); Leukocyte Negative Leu/uL (Negative); Nitrite Negative (Negative); Protein, Urine (Dipstick) 70 mg/dL (Neg-Trace); RBC/HPF 0-3 HPF (0-3); Squamous Epithelial None Seen HPF (0-3); Urobilinogen Normal mg/dL (Less than 2); WBC/HPF 0-3 HPF (0-3)
[2019-06-24] MEDS: Aspirin Chewable 81 MG TAB PO SCH (20:46)
[2019-06-24] MEDS: levETIRAcetam 500 MG TAB PO SCH (20:46)
[2019-06-24] MEDS: Ubidecarenone 50 MG CAP PO SCH (20:46)
[2019-06-24] MEDS: Atorvastatin Calcium 40 MG TAB PO SCH (20:46)
[2019-06-24] MEDS ORDERED: BIOTIN 2500 MCG PO SCH (21:00)
[2019-06-25 05:24] LABS: ALT (SGPT) 26 U/L (8-55); AST (SGOT) 60 U/L (5-34); Albumin 2.5 g/dL (3.4-4.8); Alkaline Phosphatase 96 U/L (40-110); Anion Gap 10 mmol/L (10-20); BUN (Urea Nitrogen) 23 mg/dL (8.4-25.7); Bilirubin, Total 0.6 mg/dL (0.2-1.2); Calc. Creatinine Clearance 59 mL/min (70-130); Calcium 7.6 mg/dL (7.8-10.44); Carbon Dioxide 26 mmol/L (23-31); Chloride 107 mmol/L (98-107); Estimated GFR-MDRD 64; Globulin 3.1 g/dL (2.4-3.5); Glucose 71 mg/dL (83-110); Potassium 4.3 mmol/L (3.5-5.1); Protein, Total 5.6 g/dL (5.8-8.1); Sodium 139 mmol/L (136-145)
[2019-06-25] MEDS: Benzonatate 100 MG CAP PO PRN ×3 (06:27→20:33)
[2019-06-25] MEDS: Sodium Chloride 0.9% 1,000 ML IV SCH (06:27)
[2019-06-25] MEDS: Fludrocortisone Acetate 0.1 MG TAB PO SCH (08:17)
[2019-06-25] MEDS: levETIRAcetam 500 MG TAB PO SCH (08:17)
--- NOTE | 2019-06-25 09:37 | PDOC.HOSPP ---
- Subjective Subjective: Reports coughing all night. Got some suppressant and that did help some. Otherwise feels ok. Ate a little breakfast. Not aware of having any diarrhea. - Objective Vital Signs & Weight: Vital Signs (12 hours) Temp Pulse Resp BP Pulse Ox 06/25/19 07:25 98.5 F 71 20 156/79 H 98 06/25/19 04:16 98.2 F 70 18 168/74 H 95 Weight Weight 170 lb 6.4 oz I&O: 06/24/19 06/25/19 06/26/19 06:59 06:59 06:59 Intake Total 2301 Output Total 1325 Balance 976 Result Diagrams: 06/25/19 04:28 Additional Labs: Accuchecks 06/25/19 06/24/19 05:51 20:44 POC Glucose 74 111 H Hospitalist ROS - Medication Medications: Active Medications Generic Name Dose Route Start Last Admin Trade Name Freq PRN Reason Stop Dose Admin Aspirin 81 mg 06/24/19 21:00 06/24/19 20:46 Aspirin Chewable PO 81 mg HS ASHLY Administration Atorvastatin Calcium 40 mg 06/24/19 21:00 06/24/19 20:46 Lipitor PO 40 mg HS ASHLY Administration Benzonatate 100 mg 06/25/19 06:18 06/25/19 06:27 Tessalon PO 100 mg TIDPRN PRN Administration Cough Coenzyme Q10 100 mg 06/24/19 21:00 06/24/19 20:46 Coenzyme Q10 PO 100 mg HS ASHLY Administration Fludrocortisone Acetate 0.1 mg 06/25/19 09:00 06/25/19 08:17 Florinef PO 0.1 mg DAILY ASHLY Administration Sodium Chloride 1,000 mls @ 75 mls/hr 06/24/19 17:00 06/25/19 06:27 Normal Saline 0.9% IV 1,000 mls .[id number] ASHLY Administration Levetiracetam 500 mg 06/24/19 21:00 06/25/19 08:17 Keppra PO 500 mg BID ASHLY Administration - Exam General Appearance: NAD, awake alert Heart: RRR, no murmur, no gallops, no rubs, normal peripheral pulses Respiratory: CTAB, no wheezes, no rales, no ronchi, normal chest expansion, no tachypnea, normal percussion Gastrointestinal: soft, non-tender, non-distended, normal bowel sounds, no palpable masses, no hepatomegaly, no splenomegaly, no bruit Musculoskeletal: normal tone, normal strength, no muscle wasting Psychiatric: normal affect, normal behavior Hosp A/P (1) Diarrhea Code(s): R19.7 - DIARRHEA, UNSPECIFIED Status: Acute (2) Acute metabolic encephalopathy Code(s): G93.41 - METABOLIC ENCEPHALOPATHY Status: Acute (3) Fever Code(s): R50.9 - FEVER, UNSPECIFIED Status: Acute (4) Abnormal CXR Code(s): R93.89 - ABNORMAL FINDINGS ON DX IMAGING OF OTH BODY STRUCTURES Status: Acute (5) Seizure disorder Code(s): G40.909 - EPILEPSY, UNSP, NOT INTRACTABLE, WITHOUT STATUS EPILEPTICUS Status: Acute (6) Physical deconditioning Code(s): R53.81 - OTHER [place] Status: Acute (7) Carotid artery stenosis Code(s): I65.29 - OCCLUSION AND STENOSIS OF UNSPECIFIED CAROTID ARTERY Status : Chronic Qualifiers: (8) Coronary artery disease Code(s): I25.10 - ATHSCL HEART DISEASE OF [place] CORONARY ARTERY W/O ANG PCTRS Status: Chronic Qualifiers: (9) DM2 (diabetes mellitus, type 2) Status: Chronic (10) Paroxysmal atrial fibrillation Code(s): I48.0 - PAROXYSMAL ATRIAL FIBRILLATION Status: Chronic - Plan Diarrhea seems to be improving. Back on Keppra so we will see if it comes back. Stool studies are negative. Now has prominent cough. CXR looks be worse in the LLL from prior CT chest. Looks like some component of effusion and unclear how much is infiltrate. With the reported fever and encephalopathy, will cover for HCAP with Vanc and Cefepime. Resuming keppra for now. Continue with other home meds including anticoagulation. PT consult. Pending results of CT, if pneumonia confirmed, will make inpatient status.
--- NOTE | 2019-06-25 10:19 | HP ---
CHIEF COMPLAINT: Altered mental status. HISTORY OF PRESENT ILLNESS: This patient is a 78-year-old male, who was recently admitted to this facility at which time, he was diagnosed with seizure and was started on Keppra. The patient had multiple episodes of syncope and falls. Once he presented there, the patient was having some problems with not eating and diarrhea and ultimately developed some low-grade fever. He had labs done there, which were largely unrevealing with the exception of a very mild elevation of the transaminases and ultimately on the day of admission with persistent diarrhea, poor p.o. intake, and low-grade fever. The patient appeared to have poor color and to be more lethargic and was subsequently directly admitted to the hospital for further evaluation. Currently, the patient says he feels fine. He states that he has developed a bit of a cough since he arrived here at the hospital, but has not been coughing prior to that. He is unaware of any fever or difficulties with his mentation. He is aware of having had the diarrhea. He denies any other specific complaints. REVIEW OF SYSTEMS: All other systems reviewed. All pertinent positives and negatives noted in history of present illness. PAST MEDICAL HISTORY: 1. Notable for the recent diagnosis of seizure disorder, started on Keppra with concern that Keppra might be causing some GI distress. 2. Coronary artery disease, status post CABG. 3. Bicuspid aortic valve, status post replacement with porcine valve. 4. Paroxysmal atrial fibrillation, on long-term anticoagulation with Xarelto. 5. Cardiomyopathy with systolic ejection fraction of 40% to 45%. 6. Chronic kidney disease, stage 3. 7. Diabetes mellitus with related retinopathy. 8. Diabetic neuropathy. 9. History of CVA. 10. Orthostatic hypotension with history of falls. 11. History of multiple syncopal episodes. 12. History of recent diagnosis of some left carotid stenosis with plans for followup once he is more medically stable. 13. History of depression, anxiety. PAST SURGICAL HISTORY: Cholecystectomy, coronary artery bypass, bioprosthetic aortic valve replacement with porcine valve in 2007, and cataractectomy. FAMILY HISTORY: Notable for coronary artery disease and PR in both parents. SOCIAL HISTORY: No alcohol, tobacco, or drugs. His power of collections attorney is his oldest son, Danny Barnes, who is a movement assembly final inspector at [employer]. ALLERGIES: SULFA, AMLODIPINE, CARVEDILOL, AND PREDNISONE. CURRENT MEDICATIONS: 1. Keppra 500 mg b.i.d. 2. CoQ10 of 100 mg q.h.s. 3. Xarelto 15 mg q.h.s. 4. Multivitamin one p.o. q.h.s. 5. Magnesium 500 mg q.h.s. 6. Humalog sliding scale. 7. Glucosamine 500 q.h.s. 8. Florinef 0.1 mg daily. 9. Stool softeners 250 mg daily as needed. 10. Biotin 2500 mcg q.h.s. 11. Lipitor 10 mg q.h.s. 12. Aspirin 81 mg q.h.s. PHYSICAL EXAMINATION: VITAL SIGNS: Temperature 97.4, pulse 90, respirations 18, O2 saturation 99% on 2 L nasal cannula, blood pressure 157/77. GENERAL APPEARANCE: Age-appropriate male, in no distress. He is awake, alert, very pleasant, cooperative. HEENT: He has some blepharitis of the left eye, some decreased reaction to pupillary response on the right. Has no OP lesions. NECK: Supple and symmetric without lymphadenopathy, JVD, or bruit. HEART: Regular without murmurs. LUNGS: Clear bilaterally with no wheezes or rales. ABDOMEN: Soft, nontender, and nondistended. EXTREMITIES: No cyanosis, clubbing, or edema. PSYCHIATRIC: Normal affect and behavior. NEUROLOGIC: Appears to have some visual deficit. Moves all extremities spontaneously. Generally cognitively intact for our conversation. No focal deficits. LABORATORY DATA: Labs performed at outside facility were reviewed with nothing overly remarkable. Of note, we did get results on C difficile obtained from the facility, which was negative. IMPRESSION AND PLAN: 1. Acute encephalopathy, likely metabolic, likely related to multiple factors including diarrheal illness, some low-grade fever, appears to be at his baseline at the moment. 2. Febrile illness. Reported low-grade fevers. Has not had any documented here. Certainly, could be consistent with his diarrheal illness, although he is also reporting cough now. We will continue to follow up on the stool studies. Obtain blood cultures and consider repeat chest x-ray if cough persists. 3. New cough as above. 4. Recent diagnosis of seizure disorder, on Keppra, may need to continue to hold that. It has been held at the facility for concern that it was affecting his GI status, which may be correct and if symptoms persist, we will need to discontinue it altogether and have Neurology evaluate for possible alternative. 5. History of paroxysmal atrial fibrillation. Continue with the anticoagulation with Xarelto. 6. Hyperlipidemia. Continue with the Lipitor. 7. Chronic coronary artery disease, status post coronary artery bypass, stable. 8. Known left carotid stenosis, stable. Will need eventual outpatient followup. Job ID: [id number]
[2019-06-25] MEDS ORDERED: Vancomycin 1.5 GRAM/300 ML BAG 1.5 GM in Premix Bag 1 BAG IVPB SCH (12:00)
--- NOTE | 2019-06-25 13:07 | CT ---
CHEST CT WITHOUT CONTRAST: HISTORY: Pleural effusion. Possible left lower lobe infiltrate. COMPARISON: None. CORRELATION: One view chest radiograph 06/24/2019. FINDINGS: Mediastinum: Limited evaluation by the absence of intravenous contrast. Nonspecific, nonenlarged prev ascular lymph nodes. Upper normal right paratracheal lymph node measures 1.7 x 1.6 cm. Enlarged AP window lymph node measures 2.0 x 1.2 cm. Aorta: Atherosclerosis. No aneurysm. Heart: Enlarged cardiac silhouette. No pericardial effusion. There are coronary artery calcifications . Upper abdomen: Extensive atherosclerosis of the splenic artery. Surgically absent gallbladder. Trachea and central bronchi: Patent. Pleural effusion: Small loculated pleural effusion in the left lung base and lateral left hemithorax. Layering right-sided pleural effusion, small. Lungs: Consolidation with air bronchograms in both lower lobes likely representing bibasilar pneumoni a, aspiration or atelectasis given adjacent pleural fluid. There are patchy interstitial and alveolar opacities noted in the dependent portion of the right lung and scattered throughout the left lung. Osseous structures: Diffuse bone demineralization. IMPRESSION: 1. Mildly enlarged mediastinal lymph nodes, nonspecific. 2. Layering a right-sided pleural effusion, small. 3. Loculated pleural fluid in the left hemithorax, small. Two separate loculated pleural fluid collec tions measure 1.4 x 7.2 and 5.5 x 1.4 cm. 4. Lung parenchymal changes due to atelectasis, pneumonia or aspiration. Transcribed Date/Time: 06/25/2019 1:27 PM
[2019-06-25 16:14] LABS: Ref Lab Test Ordered RVP; Reference Lab Name LABCORP
[2019-06-25] MEDS: Rivaroxaban 15 MG TAB PO SCH (17:09)
[2019-06-25] MEDS ORDERED: Loperamide HCl 2 MG CAP PO SCH (18:30)
--- NOTE | 2019-06-25 20:29 | PDOC.EVN ---
Event Note - Event Note Event Note: Had a good discussion with the patient's son, Danny BarnesJr. MD. He is a Day Worker at [employer]. He informed me that Mr. 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 Has had occ incontinence of stool for years. It is not at all clear that this represents a new issue for him. He has responded to anti-diarrheal agents , but is subject to medication induced constipation with them as well. I ordered one dose of imodium. He also informed me that his father had a history of a traumatic accident resulting in a hemothorax. The patient had declined intervention initially, but ultimately became SOB. When surgery was attempted, he had coagulated and fibrosed the cavity. Required thoracotomy and chest tube drainage. The findings on the CT are likely the residua of that and chronic in nature. We discussed the abx. If he remains afebrile tomorrow, will DC the abx. He also told me that the Keppra was not concerning as the source of the diarrhea , but was concerning for sedation. I will DC that and have Neuro reassess him for a different drug. He does have some concern that his father was being a little non-compliant with the team in [facility] because he had become upset with them. He did start eating immediately upon arrival here, but had not been eating there. Continue PT. May be able to get him back to [facility] soon. Patient is full code.
[2019-06-25] MEDS: Atorvastatin Calcium 40 MG TAB PO SCH (20:33)
[2019-06-25] MEDS: Ubidecarenone 50 MG CAP PO SCH (20:33)
[2019-06-25] MEDS: Aspirin Chewable 81 MG TAB PO SCH (20:33)
[2019-06-25] MEDS ORDERED: Vancomycin HCl 1 GM in Premix Bag 1 BAG IVPB SCH (21:00)
[2019-06-26 05:10] LABS: Band 9 % (5-11); Eosinophils 3 % (0-10); Hemoglobin 9.8 g/dL (14.0-18.0); Lymphocytes 53 % (21-51); MDiff Complete? YES; Mean Corpuscular HGB CONC 32.2 g/dL (32.0-36.0); Mean Corpuscular Hemoglobin 31.3 pg (27.0-31.0); Mean Corpuscular Volume 97.2 fL (78.0-98.0); Mean Platelet Volume 6.4 fL (7.4-10.4); Monocytes 9 % (0-10); Neutrophil 26 % (42-75); Platelet Count 298 thou/uL (130-400); RBC Distribution Width 13.2 % (11.5-14.5); Red Blood Cell (RBC) Count 3.14 mill/uL (4.70-6.10); White Blood Cell (WBC) Count 2.9 thou/uL (4.8-10.8)
[2019-06-26] MEDS: Fludrocortisone Acetate 0.1 MG TAB PO SCH (09:44)
[2019-06-26] MEDS: Saccharomyces boulardii 250 MG CAP PO SCH (09:44)
[2019-06-26] MEDS ORDERED: hydrALAZINE 20 MG/ML VIAL SLOW IVP PRN (14:19)
[2019-06-26] MEDS: Rivaroxaban 15 MG TAB PO SCH (17:26)
[2019-06-26] MEDS: HumaLOG 300 UNITS/3 ML VIAL SC PRN (17:27)
--- NOTE | 2019-06-26 19:38 | PDOC.HOSPP ---
- Subjective Subjective: Feeling well today. No more diarrhea since yesterday evening. Reports he only has the cough for about 30 min each day and then it goes away. He is still eating and drinking well. Denies abdominal pain or SOB. Says he does not want to go back to the swing bed in [facility]. Wants to go back to [facility] in [facility] where he was before. He says he feels up to going, but just feels a weak. - Objective Vital Signs & Weight: Vital Signs (12 hours) Temp Pulse Resp BP Pulse Ox Pulse Ox 06/26/19 15:54 98.6 F 74 18 184/88 H 96 06/26/19 11:43 98.1 F 74 20 176/84 H 95 06/26/19 08:47 92 L 06/26/19 07:44 97.2 F L 65 18 166/81 H 96 Weight Admit Weight 170 lb 6.4 oz Weight 170 lb 6.4 oz I&O: 06/25/19 06/26/19 06/27/19 06:59 06:59 06:59 Intake Total 2301 1525 960 Output Total 1325 2275 950 Balance 976 -750 10 Result Diagrams: 06/26/19 04:30 06/25/19 04:28 Additional Labs: Accuchecks 06/26/19 06/26/19 06/26/19 15:54 10:40 06:20 POC Glucose 189 H 122 H 83 06/25/19 19:53 POC Glucose 144 H Hospitalist ROS - Medication Medications: Active Medications Generic Name Dose Route Start Last Admin Trade Name Freq PRN Reason Stop Dose Admin Aspirin 81 mg 06/24/19 21:00 06/25/19 20:33 Aspirin Chewable PO 81 mg HS ASHLY Administration Atorvastatin Calcium 40 mg 06/24/19 21:00 06/25/19 20:33 Lipitor PO 40 mg HS ASHLY Administration Benzonatate 100 mg 06/25/19 06:18 06/25/19 20:33 Tessalon PO 100 mg TIDPRN PRN Administration Cough Coenzyme Q10 100 mg 06/24/19 21:00 06/25/19 20:33 Coenzyme Q10 PO 100 mg HS ASHLY Administration Fludrocortisone Acetate 0.1 mg 06/25/19 09:00 06/26/19 09:44 Florinef PO 0.1 mg DAILY ASHLY Administration Insulin Human Lispro 0 units 06/24/19 17:03 06/26/19 17:27 Humalog SC 2 unit .MILD SLIDING SCALE PRN Administration Mild Correctional Scale Rivaroxaban 15 mg 06/25/19 17:00 06/26/19 17:26 Xarelto PO 15 mg 1700 ASHLY Administration Saccharomyces Boulardii 250 mg 06/26/19 09:00 06/26/19 09:44 Florastor PO 250 mg DAILY ASHLY Administration - Exam General Appearance: NAD, awake alert Eye: PERRL, anicteric sclera Heart: RRR, no murmur, no gallops, no rubs, normal peripheral pulses Respiratory: CTAB, no wheezes, no ronchi, normal chest expansion, no tachypnea, normal percussion, rales (modest on the left.) Gastrointestinal: soft, non-tender, non-distended, normal bowel sounds, no palpable masses, no hepatomegaly, no splenomegaly, no bruit Extremities: no cyanosis, no clubbing, no edema Musculoskeletal: generalized weakness Psychiatric: normal affect, normal behavior, A&O x 3 Hosp A/P (1) Diarrhea Code(s): R19.7 - DIARRHEA, UNSPECIFIED Status: Acute (2) Acute metabolic encephalopathy Code(s): G93.41 - METABOLIC ENCEPHALOPATHY Status: Resolved (3) Fever Code(s): R50.9 - FEVER, UNSPECIFIED Status: Resolved (4) Abnormal CXR Code(s): R93.89 - ABNORMAL FINDINGS ON DX IMAGING OF OTH BODY STRUCTURES Status: Chronic (5) Seizure disorder Code(s): G40.909 - EPILEPSY, UNSP, NOT INTRACTABLE, WITHOUT STATUS EPILEPTICUS Status: Chronic (6) Physical deconditioning Code(s): R53.81 - OTHER MALAISE Status: Acute (7) Carotid artery stenosis Code(s): I65.29 - OCCLUSION AND STENOSIS OF UNSPECIFIED CAROTID ARTERY Status : Chronic Qualifiers: (8) Coronary artery disease Code(s): I25.10 - ATHSCL HEART DISEASE OF [place] CORONARY ARTERY W/O ANG PCTRS Status: Chronic Qualifiers: (9) DM2 (diabetes mellitus, type 2) Status: Chronic (10) Paroxysmal atrial fibrillation Code(s): I48.0 - PAROXYSMAL ATRIAL FIBRILLATION Status: Chronic - Plan Diarrhea seems to be improving. Had episode last night. Better with imodium that was given after finding that it was more of a chronic condition. The decreasing WBC make viral illness very possible especially with positive stool lactoferrin. Other stool studies are negative. Alonso Pedraza. Concern was sedation. Neuro consult pending for alternative. Abx discontinued in light of the new history regarding the lung findings. Remains afebrile. Continue with other home meds including anticoagulation. PT consult. He does not want to back to swing bed. Wants to go back to [facility] where he was originally. Discussed with CM. They will take him back. He had an insulin pump that was lost at his last visit. That was re-ordered while at the swing bed. It has arrived there. They will be taking it to the AL. He will not be able to get that re-started by the rep until Saturday. Confirmed he can be on an alternative regimen at the AL until then. His son, Danny Rao will be here tomorrow and can take him back to the AL if he is ready.
[2019-06-26] MEDS: Aspirin Chewable 81 MG TAB PO SCH (21:14)
[2019-06-26] MEDS: Ubidecarenone 50 MG CAP PO SCH (21:14)
[2019-06-26] MEDS: Atorvastatin Calcium 40 MG TAB PO SCH (21:14)
[2019-06-27 04:49] LABS: Anion Gap 13 mmol/L (10-20); BUN (Urea Nitrogen) 15 mg/dL (8.4-25.7); Calc. Creatinine Clearance 67 mL/min (70-130); Calcium 7.7 mg/dL (7.8-10.44); Carbon Dioxide 24 mmol/L (23-31); Chloride 107 mmol/L (98-107); Estimated GFR-MDRD 74; Glucose 135 mg/dL (83-110); Potassium 3.9 mmol/L (3.5-5.1); Sodium 140 mmol/L (136-145)
[2019-06-27 05:33] LABS: Band 5 % (5-11); Eosinophils 2 % (0-10); Hemoglobin 10.5 g/dL (14.0-18.0); Lymphocytes 44 % (21-51); MDiff Complete? YES; Mean Corpuscular HGB CONC 32.9 g/dL (32.0-36.0); Mean Corpuscular Hemoglobin 31.7 pg (27.0-31.0); Mean Corpuscular Volume 96.6 fL (78.0-98.0); Monocytes 9 % (0-10); Neutrophil 40 % (42-75); Platelet Count 264 thou/uL (130-400); Platelet Morphology Comment Appears Adequate; RBC Distribution Width 13.2 % (11.5-14.5)
[2019-06-27] MEDS: Fludrocortisone Acetate 0.1 MG TAB PO SCH (09:14)
[2019-06-27] MEDS: Saccharomyces boulardii 250 MG CAP PO SCH (09:14)
--- NOTE | 2019-06-27 11:21 | PRG ---
DATE OF SERVICE: 06/27/2019 CONSULTING PHYSICIAN: Hospitalist Service. Mr. Barnes has been seen in the office for management of seizures. He recently has been on Keppra. His family reports he was quite sedated by. We tried reducing the dose to 250 mg twice a day. Unfortunately, he continued to be quite sedated by the medication. I suggested a change to Dilantin 300 mg at night. We will follow his course and see how he tolerates his medication. Job ID: [id number]
[2019-06-27] MEDS: HumaLOG 300 UNITS/3 ML VIAL SC PRN (11:25)
[2019-06-27 11:40] VITALS: BP 138/77; TEMP 98.1
[2019-06-27] MEDS ORDERED: Loperamide HCl 2 MG CAP PO SCH (12:00)
--- NOTE | 2019-06-28 20:45 | DIS ---
DATE OF ADMISSION: 06/24/2019 DATE OF DISCHARGE: 06/27/2019 HOSPITAL COURSE: Mr. Barnes is a 78-year-old male, who presented to the hospital with reduced oral intake, chronic diarrhea, and somnolence. Infectious workup for the diarrhea suggested that he had viral gastroenteritis or colitis, and treatment was supportive. Neurology evaluated the patient for somnolence and suggested that might be due to the Keppra that patient was recently started on, so Keppra was replaced by Dilantin. The patient's mental state improved and returned to baseline on the day of discharge and his diarrhea resolved. On the day of discharge, the patient and his son were educated regarding the change in medication, namely replacement of Keppra by Dilantin, and limited use of loperamide p.r.n. On the day of discharge, the patient was hemodynamically stable with negative orthostatic hypotension. PHYSICAL EXAMINATION: GENERAL: He was in no apparent distress, alert and oriented. CARDIAC: Regular rate and rhythm. No murmur. No gallops. No rubs. Normal peripheral pulses. RESPIRATORY: Clear to auscultation bilaterally. No wheezing. No rhonchi. Normal chest expansion. GI: Soft, nontender, nondistended with normal bowel sounds. No palpable masses. No hepatomegaly. No splenomegaly. No bruit. EXTREMITIES: No cyanosis. No edema. MUSCULOSKELETAL: Mild generalized weakness, improved compared to admission. PSYCHIATRIC: Normal affect. Normal behavior. Alert and oriented x3. ASSESSMENT AND PLAN: Mr. Barnes is a 78-year-old male, who presented with chronic diarrhea and somnolence. He was diagnosed with viral gastroenteritis, hence the diarrhea resolved with supportive care, and after replacement of Keppra with Dilantin, somnolence improved as well. The patient was discharged home hemodynamically stable with followup appointment with his primary care physician and Neurology. Job ID: [id number]
--- NOTE | 2019-06-30 04:56 | PQF ---
[employer] Global Technical Writer Crystal Reports Winform ViewerBETHANY FLYNN LOLA GANDHI [id number] [facility]257 [id number] CLINICAL DOCUMENTATION CLARIFICATION FORM: POST DISCHARGE Addendum to original discharge summary date: ____ Late entry note date: __ DATE: 06/30/2019 ATTN: LOLA GANDHI Please exercise your independent, professional judgment in responding to the clarification form. Clinical indicators are provided on the bottom of this form for your review Please check appropriate box(s) to clarify if the following diagnosis has been ruled in or ruled out: PNEUMONIA (CDI/Coding list diagnosis here) [ ] Ruled in diagnosis [ ] Continue to treat [ ] Resolved [ x ] Ruled out diagnosis [ ] Cannot rule out diagnosis [ ] Other diagnosis [ ] Unable to determine In addition, please specify: Present on Admission (POA): [ ] Yes [ ] No [ x ] Unable to determine For continuity of documentation, please document condition throughout progress notes and discharge summary. Thank You. CLINICAL INDICATORS - SIGNS / SYMPTOMS / LABS Possible Pneumonia -Documented in Admit order CT chest-looks like some component of effusion & unclear how much is infiltrate - Documented in Hospital PNS on 06/25 by Jodi Mata With the reported fever & encephalopathy , will cover for HCAP with vanc & cefepime - Documented in Hospital PNS on 06/25 by Jodi Mata WBC level 2.9 on 06/26 and 3.0 on 06/27 - Documented in laboratory RISK FACTORS Viral gastroenteritis - Documented in DS on 06/28 by LOLA GANDHI Acute metabolic encephalopathy DM TREATMENTS Vancomycin IVPB - Documented in Medication report [employer] Global Technical Writer Crystal Reports Winform Viewer (This form is maintained as a part of the permanent medical record) 2014 [employer]. All Rights Reserved [email or web address] [not provided] MTDD
== END 2019-06-27 13:15 | DRG 391 ==
LOC: OBSVTOIN 13:34 → 2NO 13:34 → INTOOBSV 13:34
PROVIDERS: ADMIT Internal Medicine; ATTEND Internal Medicine
DX: A08.4 Viral intestinal infection, unspecified (principal); G93.41 Metabolic encephalopathy; G40.909 Epilepsy, unspecified, not intractable, without status epilepticus; I25.10 Atherosclerotic heart disease of native coronary artery without angina pectoris; Z95.1 Presence of aortocoronary bypass graft; Z95.2 Presence of prosthetic heart valve; I48.0 Paroxysmal atrial fibrillation; N18.3 Chronic kidney disease, stage 3 (moderate); Z86.73 Personal history of transient ischemic attack (TIA), and cerebral infarction without residual deficits; E11.22 Type 2 diabetes mellitus with diabetic chronic kidney disease; E11.319 Type 2 diabetes mellitus with unspecified diabetic retinopathy without macular edema; F32.9 Major depressive disorder, single episode, unspecified; F41.9 Anxiety disorder, unspecified; E11.40 Type 2 diabetes mellitus with diabetic neuropathy, unspecified; Z90.49 Acquired absence of other specified parts of digestive tract; Z98.49 Cataract extraction status, unspecified eye; Z79.82 Long term (current) use of aspirin; Z79.899 Other long term (current) drug therapy; Z88.2 Allergy status to sulfonamides; Z88.8 Allergy status to other drugs, medicaments and biological substances; T42.6X5A Adverse effect of other antiepileptic and sedative-hypnotic drugs, initial encounter; I65.22 Occlusion and stenosis of left carotid artery; E78.5 Hyperlipidemia, unspecified
CPT/HCPCS: 36415; 36416; 71250; 80048; 80053; 81001; 83630; 85025; 87040; 87804; J1956

== ENCOUNTER 2020-07-11 12:44 | Inpatient (IN) | payer MEDICARE ==
--- NOTE | 2020-07-11 13:53 | RAD ---
EXAM: Single view of the chest HISTORY: Right heel wound with drainage COMPARISON: 04/09/2020 FINDINGS: Single view of the chest shows an enlarged but stable cardiomediastinal silhouette. The pa tient is status post CABG. A cardiac monitoring device projects over the left chest wall. There is a moderate left pleural effusion with adjacent infiltrate. There is left apical pleural thickening. D egenerative changes are seen in the spine. IMPRESSION: Moderate left pleural effusion with adjacent atelectasis versus infiltrate
[2020-07-11 14:48] LABS: Mean Corpuscular HGB CONC 32.7 g/dL (32.0-36.0); Mean Corpuscular Hemoglobin 33.6 pg (27.0-31.0); Mean Platelet Volume 7.9 fL (7.4-10.4); Platelet Count 197 thou/uL (130-400); RBC Distribution Width 12.1 % (11.5-14.5); Red Blood Cell (RBC) Count 3.86 mill/uL (4.70-6.10); White Blood Cell (WBC) Count 18.2 thou/uL (4.8-10.8)
--- NOTE | 2020-07-11 14:54 | RAD ---
3 views right ankle: 07/11/2020 COMPARISON: None HISTORY: Streaking from right heel wound, patient sent from wound clinic FINDINGS: There is medial soft tissue swelling. There is multifocal atherosclerotic calcification at the level of the ankle. There is enthesophyte formation at the insertion of the Achilles tendon. No displaced fracture or evidence of dislocation is seen. IMPRESSION: Soft tissue swelling, atherosclerotic disease. If there is concern for osteomyelitis, MRI suggested.
[2020-07-11 15:10] LABS: ALT (SGPT) 61 U/L (8-55); AST (SGOT) 108 U/L (5-34); Alkaline Phosphatase 260 U/L (40-110); Anion Gap 17 mmol/L (10-20); BUN (Urea Nitrogen) 37 mg/dL (8.4-25.7); Calc. Creatinine Clearance 0 mL/min (70-130); Calcium 8.2 mg/dL (7.8-10.44); Carbon Dioxide 25 mmol/L (23-31); Chloride 100 mmol/L (98-107); Globulin 3.7 g/dL (2.4-3.5); Glucose 221 mg/dL (83-110); Potassium 4.8 mmol/L (3.5-5.1); Protein, Total 6.7 g/dL (5.8-8.1); Sodium 137 mmol/L (136-145)
[2020-07-11] MEDS ORDERED: cloNIDine 0.1 MG TAB ONE (15:19)
[2020-07-11] MEDS ORDERED: Cefepime 2 GM VIAL ONE ×2 (15:19→23:02)
[2020-07-11 15:28] LABS: Band 16 % (5-11); Lymphocytes 3 % (21-51); MDiff Complete? YES; Macrocytosis SLIGHT = 6-15 cells (100X) (0-5/hpf); Monocytes 7 % (0-10); Neutrophil 64 % (42-75); Platelet Morphology Comment Appears Adequate; Polychromasia SLIGHT = 2-3 cells (100X) (0-2/hpf); Reactive Lymphocytes 10 % (0-10)
[2020-07-11 15:30] LABS: CKMB 0.8 ng/mL (0-6.6)
[2020-07-11 15:56] LABS: Bacteria/HPF None Seen HPF (None Seen); Bilirubin Negative (Negative); Blood, Urine 1+ (Negative); Clarity Clear (Clear); Glucose, Urine (Dipstick) Normal (Negative); Ketone, Urine Trace mg/dL (Negative); Leukocyte Negative Leu/uL (Negative); Nitrite Negative (Negative); Protein, Urine (Dipstick) 200 mg/dL (Neg-Trace); Specific Gravity, Urine 1.018 (1.002-1.036); Squamous Epithelial 0-3 HPF (0-3); Urobilinogen Normal mg/dL (Less than 2); WBC/HPF 0-3 HPF (0-3); pH, Urine 5.5 (5.0-9.0)
[2020-07-11] MEDS ORDERED: Acetaminophen 325 MG TAB PO PRN (16:18)
[2020-07-11] MEDS ORDERED: Acetaminophen 650 MG Suppository PR PRN (16:18)
[2020-07-11] MEDS ORDERED: Dextrose 50% Abboject 50 ML SYRINGE SLOW IVP PRN (16:18)
[2020-07-11] MEDS ORDERED: HumaLOG 300 UNITS/3 ML VIAL SC PRN (16:18)
[2020-07-11] MEDS ORDERED: Dextrose 5% in Water 1,000 ML IV PRN (16:18)
--- NOTE | 2020-07-11 16:32 | PDOC.HHP ---
Hospitalist LISANDRA Pang heel pain History of Present Illness: Mr. Barnes is an 79-year-old male with past medical history of CHF with EF of 45 to 50% and diastolic dysfunction, coronary artery disease status post AZ, atrial fibrillation on Xarelto, status post aortic valve replacement, type 2 diabetes mellitus, right eye blindness who presents to the emergency room for right heel pain and worsening of right heel wound. Patient has a chronic ulcer to his heel which is being managed by wound care at his retirement. The retirement nurses were concerned for worsening redness extending up the ankle and brought him to the emergency room. Patient reports that he feels his foot ulcer has been worse over the past few months and then over the past few days he has developed severe pain in the right heel. Patient denies fever chills or night sweats. Denies shortness of breath, chest pain, abdominal pain. Denies numbness or paresthesias to his extremities. In emergency room initial vital signs 123/87, 94, 18, 98.6, 95% on room air. EKG showed atrial fibrillation with a ventricular rate of [address] changes. Initial troponin was 0.042, lactic acid 2.5, BBC 18.2, H/H 13.0/39.2. BUN/CR 37/1.37, sodium 137, potassium 4.8, glucose 221. AST/ALT 108/61, 260. Chest x- ray showed moderate left-sided pleural effusion stable from prior exam. Plain x-ray of the right foot showed soft tissue swelling but no evidence of gas. Patient received vancomycin, cefepime and 500 cc of normal saline in the emergency room. Allergies/Adverse Reactions: Allergy/AdvReac Type Severity Reaction Status Date / Time Sulfa (Sulfonamide Allergy Intermediate Verified 08/29/19 22:01 Antibiotics) amlodipine Allergy Verified 08/29/19 22:01 carvedilol [From Coreg] Allergy Verified 08/29/19 22:01 diphenhydramine Allergy Verified 07/13/20 10:45 [From Benadryl] prednisone Allergy Verified 08/29/19 22:01 Home Medications: Medication Instructions Recorded Confirmed Type Aspirin [Thomas Chewable Aspirin] 81 mg PO HS 02/10/14 07/22/20 History Biotin 2,500 mcg PO HS 02/04/19 07/22/20 History Glucosamine HCl 500 mg PO HS 02/04/19 07/22/20 History HumaLOG [HumaLOG Vial] 0 unit SC ACHS 02/04/19 07/22/20 History Multivitamin With Minerals 1 tablet PO HS 02/04/19 07/22/20 History [Multiple Vitamin] Rivaroxaban [Xarelto] 15 mg PO HS 02/04/19 07/22/20 History Atorvastatin Calcium [Lipitor] 40 mg PO HS tab 03/02/19 07/22/20 Rx Docusate Sodium [Stool Softener] 250 mg PO DAILY PRN 05/02/19 07/22/20 History Magnesium Oxide 400 mg PO HS 05/02/19 07/22/20 History Ubidecarenone [CoQ-10] 100 mg PO HS 05/02/19 07/22/20 History Fludrocortisone Acetate [Florinef] 0.1 mg PO DAILY #30 tab 05/11/19 07/22/20 Rx Loperamide HCl [Loperamide] 2 mg PO ASDIR PRN #20 tablet 06/27/19 07/22/20 Rx Phenytoin Sodium Extended 300 mg PO HS #60 cap 06/27/19 07/22/20 Rx [Dilantin] Saccharomyces boulardii [Florastor] 250 mg PO DAILY cap 06/27/19 07/22/20 Rx Citalopram [CeleXA] 20 mg PO DAILY 04/07/20 07/22/20 History Ondansetron [Zofran ODT] 4 mg PO PRN PRN 04/07/20 07/22/20 History Acetaminophen [Tylenol Regular 650 mg PO Q4H PRN tab 04/11/20 07/22/20 Rx Strength] Ascorbic Acid [Vitamin C] 1,000 mg PO HS tab 04/11/20 07/22/20 Rx Cholecalciferol (Vitamin D3) 400 units PO HS tab 04/11/20 07/22/20 Rx [Vitamin D3] Ferrous Sulfate [Feosol] 325 mg PO QAM-WM tab 04/11/20 07/22/20 Rx Zinc Sulfate 220 mg PO HS cap 04/11/20 07/22/20 Rx Amoxicillin/Potassium Clav 1 tab PO Q12HR #60 tablet 07/20/20 07/22/20 Rx [Augmentin] Ciprofloxacin [Cipro] 500 mg PO Q12HR #60 tab 07/20/20 07/22/20 Rx Past History: PMHx: CHF, EF 45 to 50% with diastolic dysfunction Coronary artery disease status post AZ and CABG Aortic stenosis status post AVR Type 2 diabetes mellitus Atrial fibrillation on Xarelto PSHx: CABG AVR Vasectomy Cholecystectomy Mention of left lung surgery on records but patient unable to provide any further details FHx: No pertinent family history Social: Patient lives at retirement, no drug alcohol or smoking history Hospitalist HPI ROS Constitutional: denies: fever, chills, sweats, weakness, malaise, other Eyes: denies: pain, vision change, conjunctivae inflammation, eyelid inflammation, redness, other ENT: denies: ear pain, ear discharge, nose pain, nose discharge, nose congestion, mouth pain, mouth swelling, throat pain, throat swelling, other Respiratory: denies: cough, dry, shortness of breath, hemoptysis, SOB with excertion, pleuritic pain, sputum, wheezing, other Cardiovascular: denies: chest pain, palpitations, orthopnea, paroxysmal noc. dyspnea, edema, light headedness, other Gastrointestinal: denies: nausea, vomiting, abdominal pain, diarrhea, co nstipation, melena, hematochezia, other Genitourinary: denies: dysuria, frequency, incontinence, hematuria, retention, other Musculoskeletal: reports: foot pain. denies: neck pain, shoulder pain, arm pain, back pain, hand pain, leg pain, other Skin: reports: rash, lesions Neurological: denies: weakness, numbness, incoordination, change in speech, confusion, seizures, other Hospitalist Exam General Appearance: NAD, awake alert Eye: PERRL, anicteric sclera ENT: normocephalic atraumatic, no oropharyngeal lesions, moist mucosa Neck: supple, symmetric, no JVD, no thyromegaly, no lymphadenopathy, no carotid bruit Heart: RRR, no murmur, no gallops, no rubs, normal peripheral pulses Respiratory: CTAB, no wheezes, no rales, no ronchi, normal chest expansion, no tachypnea, normal percussion Gastrointestinal: soft, non-tender, non-distended, normal bowel sounds, no palpable masses, no hepatomegaly, no splenomegaly, no bruit Extremities: no cyanosis, no clubbing Extremities - other findings: R heel ulcer w/ surrounding erythema and induration extending up the ankle Skin: normal turgor Skin - other findings: Right here ulcer with surrounding cellulitis Neurological: cranial nerve grossly intact, normal sensation to touch, no weakness, no focal deficits, no new deficit Musculoskeletal: normal tone, normal strength, no muscle wasting Psychiatric: normal affect, normal behavior, oriented to person, oriented to place Hospitalist Results Result Diagrams: 07/21/20 08:41 07/21/20 08:41 Lab results: Laboratory Last Values WBC 18.2 thou/uL (4.8-10.8) H 07/11/20 14:29 RBC 3.86 mill/uL (4.70-6.10) L 07/11/20 14:29 Hgb 13.0 g/dL (14.0-18.0) L 07/11/20 14:29 Hct 39.6 % (42.0-52.0) L 07/11/20 14:29 MCV 103.0 fL (78.0-98.0) H 07/11/20 14:29 MCH 33.6 pg (27.0-31.0) H 07/11/20 14:29 MCHC 32.7 g/dL (32.0-36.0) 07/11/20 14:29 RDW 12.1 % (11.5-14.5) 07/11/20 14:29 Plt Count 197 thou/uL (130-400) 07/11/20 14:29 MPV 7.9 fL (7.4-10.4) 07/11/20 14:29 Neutrophils % (Manual) 64 % (42-75) 07/11/20 14:29 Band Neuts % (Manual) 16 % (5-11) H 07/11/20 14:29 Lymphocytes % (Manual) 3 % (21-51) L 07/11/20 14:29 Reactive Lymphs % 10 % (0-10) 07/11/20 14:29 Monocytes % (Manual) 7 % (0-10) 07/11/20 14:29 Lymphocytes # Not Reportable 07/11/20 14:29 Plt Morphology Comment Appears Adequate 07/11/20 14:29 Polychromasia SLIGHT = 2-3 cells (100X) (0-2/hpf) 07/11/20 14:29 Macrocytosis SLIGHT = 6-15 cells (100X) (0-5/hpf) 07/11/20 14:29 Sodium 137 mmol/L (136-145) 07/11/20 14:29 Potassium 4.8 mmol/L (3.5-5.1) 07/11/20 14:29 Chloride 100 mmol/L (98-107) 07/11/20 14:29 Carbon Dioxide 25 mmol/L (23-31) 07/11/20 14:29 Anion Gap 17 mmol/L (10-20) 07/11/20 14:29 BUN 37 mg/dL (8.4-25.7) H 07/11/20 14:29 Creatinine 1.37 mg/dL (0.7-1.3) H 07/11/20 14:29 Estimated GFR (MDRD) 50 07/11/20 14:29 Glucose 221 mg/dL (83-110) H 07/11/20 14:29 Lactic Acid 2.5 mmol/L (0.5-2.2) H 07/11/20 14:29 Calcium 8.2 mg/dL (7.8-10.44) 07/11/20 14:29 Total Bilirubin 1.0 mg/dL (0.2-1.2) 07/11/20 14:29 AST 108 U/L (5-34) H 07/11/20 14:29 ALT 61 U/L (8-55) H 07/11/20 14:29 Alkaline Phosphatase 260 U/L (40-110) H 07/11/20 14:29 CK-MB (CK-2) 0.8 ng/mL (0-6.6) 07/11/20 14:29 Troponin I 0.042 ng/mL (< 0.028) H 07/11/20 14:29 Serum Total Protein 6.7 g/dL (5.8-8.1) 07/11/20 14:29 Albumin 3.0 g/dL (3.4-4.8) L 07/11/20 14:29 Globulin 3.7 g/dL (2.4-3.5) H 07/11/20 14:29 Albumin/Globulin Ratio 0.8 g/dL (1.2-2.2) L 07/11/20 14:29 Urine Color Yellow (Yellow) 07/11/20 15:30 Urine Clarity Clear (Clear) 07/11/20 15:30 Urine pH 5.5 (5.0-9.0) 07/11/20 15:30 Ur Specific [place] 1.018 (1.002-1.036) 07/11/20 15:30 Urine Protein 200 mg/dL (Neg-Trace) A 07/11/20 15:30 Urine Glucose (UA) Normal mg/dL (Negative) 07/11/20 15:30 Urine Ketones Trace mg/dL (Negative) A 07/11/20 15:30 Urine Blood 1+ (Negative) A 07/11/20 15:30 Urine Nitrite Negative (Negative) 07/11/20 15:30 Urine Bilirubin Negative (Negative) 07/11/20 15:30 Urine Urobilinogen Normal mg/dL (Less than 2) 07/11/20 15:30 Ur Leukocyte Esterase Negative Helen/uL (Negative) 07/11/20 15:30 Urine RBC 11-20 HPF (0-3) A 07/11/20 15:30 Urine WBC 0-3 HPF (0-3) 07/11/20 15:30 Ur Squamous Epith Cells 0-3 HPF (0-3) 07/11/20 15:30 Amorphous Crystals Rare HPF (None Seen) A 07/11/20 15:30 Urine Bacteria None Seen HPF (None Seen) 07/11/20 15:30 Hyaline Casts 7-10 LPF (0-3) A 07/11/20 15:30 Hospitalist H&P A/P Plan: 79-year-old male with past medical history of CHF, coronary artery disease status post CABG, A. fib on Xarelto, aortic stenosis status post AVR, type 2 diabetes mellitus who is a retirement resident who presents with acute worsening of right heel diabetic ulcer with surrounding cellulitis found to be in mild sepsis on presentation. Cellulitis Patient with chronic diabetic ulcer to the right heel. Acute worsening with surrounding erythema and induration extending up to the ankle. Plain film revealed soft tissue swelling but no evidence of gas. Wound not probable to bone. WBC 18.2, patient is afebrile, but is mildly tachycardic to 95. Patient did receive vancomycin and cefepime in emergency room as well as a small fluid bolus. We will continue IV antibiotics and wound care. Given location and chronicity, will also check ABIs to assess for peripheral vascular disease. Plan Continue IV antibiotics vancomycin and cefepime ABIs to assess for PVD Wound cultures Wound care consult Elevate extremity Sepsis without septic shock Patient meeting sepsis criteria with elevated lactic acid to 2.5, WBC 18.2 and tachycardia to 95. Sepsis secondary to cellulitis to right heel chronic diabetic ulcer. Patient receiving vancomycin and cefepime in emergency room as well as small fluid bolus. We will continue IV antibiotics and plan as above. Plan IV antibiotics Gentle IV fluids Trend WBC, lactic acid, fever curve Follow blood, wound cultures NSTEMI Patient with mildly elevated troponin to 0.042. Likely type II demand ischemia secondary to sepsis. Patient denies chest pain and EKG shows no ischemic sallie nges. We will continue to trend troponins and monitor on telemetry. Plan Trend troponin Telemetry monitoring ASA Likely demand ischemia Acute kidney injury Patient with MARIA TERESA BUNs/CR 37/1.37, baseline creatinine approximately 1.0. Will give gentle IV fluids as patient has history of CHF. Plan Trend kidney function Gentle IV fluids Avoid nephrotoxic agents Renal dosing as appropriate Atrial fibrillation History of A. fib on Xarelto. EKG shows atrial fibrillation with controlled ventricular rate. Will place on telemetry monitoring and continue home Xarelto. Coronary artery disease History of CAD and CABG. We will continue home medications once confirmed. No chest pain, troponin elevated likely demand ischemia, see NSTEMI plan as above. Type 2 diabetes mellitus History of type 2 diabetes mellitus. Was formally on insulin pump but on review of records appears this was discontinued. Will need to confirm patient's current insulin regimen. Will place on insulin sliding scale and ACH S glucose checks for now. Hypertension Continue home antihypertensives once dosages are confirmed Hyperlipidemia Continue home cholesterol medications once dosages are confirmed DVT prophylaxison Xarelto Presumed full codewe will need to confirm status with family and/or retirement Case discussed with attending physician.
[2020-07-11] MEDS ORDERED: Vancomycin 1 GM/200 ML BAG ONE (16:43)
[2020-07-11] MEDS ORDERED: ANTIBIOTICS IVPB PRN (16:47)
[2020-07-11] MEDS ORDERED: Vancomycin 1 GM in Premix Bag 1 BAG IVPB SCH (17:00)
[2020-07-11 17:37] LABS: Lactic Acid 2.1 mmol/L (0.5-2.2)
[2020-07-11] MEDS ORDERED: Rivaroxaban 15 MG TAB PO SCH (21:00)
[2020-07-11 22:08] LABS: CKMB 0.8 ng/mL (0-6.6)
[2020-07-11] MEDS: Sodium Chloride 0.9% 1,000 ML IV SCH (23:12)
[2020-07-12] MEDS: Atorvastatin Calcium 40 MG TAB PO SCH ×2 (00:59→22:00)
[2020-07-12 04:07] LABS: Anion Gap 18 mmol/L (10-20); BUN (Urea Nitrogen) 37 mg/dL (8.4-25.7); Calc. Creatinine Clearance 49 mL/min (70-130); Calcium 8.1 mg/dL (7.8-10.44); Carbon Dioxide 18 mmol/L (23-31); Chloride 104 mmol/L (98-107); Glucose 237 mg/dL (83-110); Potassium 4.6 mmol/L (3.5-5.1); Sodium 135 mmol/L (136-145)
[2020-07-12 05:09] LABS: Band 8 % (5-11); Lymphocytes 5 % (21-51); MDiff Complete? YES; Mean Corpuscular HGB CONC 31.6 g/dL (32.0-36.0); Mean Platelet Volume 9.4 fL (7.4-10.4); Monocytes 7 % (0-10); Neutrophil 80 % (42-75); Platelet Count 139 thou/uL (130-400); Red Blood Cell (RBC) Count 3.43 mill/uL (4.70-6.10); White Blood Cell (WBC) Count 22.4 thou/uL (4.8-10.8)
[2020-07-12] MEDS: Sodium Chloride 0.9% 1,000 ML IV SCH ×3 (08:17→22:24)
[2020-07-12] MEDS: metroNIDAZOLE 500 MG in Premix Bag 1 BAG IVPB SCH ×2 (08:18→16:30)
[2020-07-12] MEDS: Aspirin 81 mg Enteric Coated Tablet PO SCH (08:19)
[2020-07-12] MEDS ORDERED: FLU VACC QS2020-21(65YR UP)/PF 240 MCG/0.7 ML SYRINGE IM ONE (09:00)
[2020-07-12] MEDS ORDERED: Aspirin 325 MG TAB PO SCH (09:00)
--- NOTE | 2020-07-12 09:26 | PDOC.HOSPP ---
- Subjective Encounter Date: 07/12/20 Encounter Time: 09:25 Subjective: No overnight events. Patient continues to endorse pain to the R foot. Denies CP, shortness of breath or abdominal pain. Chart and medications reviewed. - Objective Vital Signs & Weight: Vital Signs (12 hours) Temp Pulse Resp BP Pulse Ox 07/12/20 08:56 100 07/12/20 08:08 98.6 F 73 17 160/83 H 100 07/12/20 04:25 98.2 F 77 17 158/84 H 99 07/12/20 00:52 95 07/12/20 00:05 99.1 F 79 20 154/71 H 94 L Weight Weight 163 lb 2.273 oz I&O: 07/11/20 07/12/20 07/13/20 06:59 06:59 06:59 Intake Total 75 Output Total 100 Balance -25 Result Diagrams: 07/12/20 03:43 07/12/20 03:43 Additional Labs: Accuchecks 07/12/20 07/12/20 06:23 00:56 POC Glucose 187 H 200 H Hospitalist ROS - Medication Medications: Active Medications Generic Name Dose Route Start Last Admin Trade Name Freq PRN Reason Stop Dose Admin Aspirin 81 mg 07/12/20 09:00 07/12/20 08:19 Aspirin 81 Mg Enteric Coated Tablet PO 81 mg DAILY ASHLY Administration Atorvastatin Calcium 40 mg 07/11/20 21:00 07/12/20 00:59 Atorvastatin Calcium 40 Mg Tab PO 40 mg HS ASHLY Administration Sodium Chloride 1,000 mls @ 75 mls/hr 07/11/20 17:00 07/12/20 09:10 Normal Saline 0.9% IV Not Given .[id number] ASHLY Metronidazole 500 mg/ Device 100 mls @ 100 mls/hr 07/12/20 08:00 07/12/20 08:18 IVPB 100 mls [id number] ASHLY Administration Rivaroxaban 15 mg 07/11/20 21:00 07/12/20 00:59 Rivaroxaban 15 Mg Tab PO 15 mg HS ASHLY Administration Hospitalist Exam Vitals: Vital Signs (12 hours) Temp Pulse Resp BP Pulse Ox 07/12/20 08:56 100 07/12/20 08:08 98.6 F 73 17 160/83 H 100 02/02/21 04:25 98.2 F 77 17 158/84 H 99 07/12/20 00:52 95 07/12/20 00:05 99.1 F 79 20 154/71 H 94 L Weight Weight 163 lb 2.273 oz Hosp A/P - Plan 79-year-old male with past medical history of CHF, coronary artery disease status post CABG, A. fib on Xarelto, aortic stenosis status post AVR, type 2 diabetes mellitus who is a care home resident who presents with acute worsening of right heel diabetic ulcer with surrounding cellulitis found to be in mild sepsis on presentation. Cellulitis Patient with chronic diabetic ulcer to the right heel. Acute worsening with surrounding erythema and induration extending up to the ankle. Plain film revealed soft tissue swelling but no evidence of gas. Wound not probable to bone. WBC 18.2, patient is afebrile, but is mildly tachycardic to 95. Patient did receive vancomycin and cefepime in emergency room as well as a small fluid bolus. We will continue IV antibiotics and wound care. Given location and chronicity, will also check arterial dopplers to assess for peripheral vascular disease. Would with lots of slough tissue. Will place general surgery consult for wound debridement. Plan IV abx vanc, cefepime, flagyl Arterial doppler to assess for PVD Wound cultures Wound care consult General surgery consult for debridement Sepsis without septic shock Patient meeting sepsis criteria with elevated lactic acid to 2.5, WBC 18.2 and tachycardia to 95. Sepsis secondary to cellulitis to right heel chronic diabetic ulcer. Patient receiving vancomycin and cefepime in emergency room as well as small fluid bolus. WBC uptrending this am to 22.4. Will add flagyl until wound cultures come back. We will continue IV antibiotics and plan as above. Plan IV antibiotics Gentle IV fluids Trend WBC, lactic acid, fever curve Follow blood, wound cultures NSTEMI Patient with mildly elevated troponin to 0.042, 0.044, 0.066. Likely type II demand ischemia secondary to sepsis. Patient denies chest pain and EKG shows no ischemic changes. We will continue to trend troponins and monitor on telemetry. Plan Trend troponin Telemetry monitoring ASA Likely demand ischemia Acute kidney injury Patient with MARIA TERESA BUNs/CR 37/1.37, baseline creatinine approximately 1.0. Slightly improved to 1.25. Will continue gentle IVF. Plan Trend kidney function Gentle IV fluids Avoid nephrotoxic agents Renal dosing as appropriate Atrial fibrillation History of Alexia. sergio on Xarelto. EKG shows atrial fibrillation with controlled ventricular rate. Will place on telemetry monitoring and continue home Xarelto. Coronary artery disease History of CAD and CABG. We will continue home medications. No chest pain, troponin elevated likely demand ischemia, see NSTEMI plan as above. Type 2 diabetes mellitus History of type 2 diabetes mellitus. Was formally on insulin pump but on review of records appears this was discontinued. Will need to confirm patient's current insulin regimen. Will place on insulin sliding scale and ACHS glucose checks for now. Hypertension Continue home antihypertensives once dosages are confirmed Hyperlipidemia Continue home cholesterol medications once dosages are confirmed DVT prophylaxison Xarelto Presumed full codewe will need to confirm status with family and/or care home Case discussed with attending physician.
[2020-07-12 09:55] LABS: CKMB 1.2 ng/mL (0-6.6)
--- NOTE | 2020-07-12 10:40 | ULT ---
BILATERAL LOWER EXTREMITY ARTERIAL DOPPLER ULTRASOUND: DATE: 07/12/2020. COMPARISON: None. HISTORY: Peripheral vascular disease. TECHNIQUE: Multiplanar grayscale sonographic imaging of the arterial structures of bilateral lower extremities o btained with Doppler interrogation including color flow and spectral analysis. FINDINGS: The right common femoral artery is patent and demonstrates a triphasic waveform as does the right pro stacy femoral artery and right superficial femoral artery. The right popliteal artery demonstrates patency with a biphasic waveform. Calcified plaque is noted in the region of the right popliteal reagan ry. Right posterior tibial artery, anterior tibial artery are patent and demonstrate monophasic-biphasic waveforms. The right dorsalis pedis artery could not be visualized secondary to bandaging. The left common femoral artery is patent with a triphasic waveform as is the left profunda femoral ar mary in the proximal aspect of the left superficial femoral artery. The mid and distal left superficial femoral artery demonstrate a biphasic waveform which could signify hemodynamically signif icant stenosis at the junction of the proximal and mid left SFA. The left popliteal artery is patent and demonstrates a triphasic waveform. There is diffuse runoff vessel disease involving the le ft lower extremity with monophasic waveforms within the left COLLEGE DEAN, ANDRIY, and DPA. VESSEL PSV (CM/S) RIGHT: EMR IMPLEMENTATION SPECIALIST 78 Profunda Femoral Artery 67 SFA 69 Proximal SFA 100 Mid SFA 73 Distal Popliteal Artery 90 ANDRIY 78 COLLEGE DEAN 69 PDA nonvisualized LEFT: EMR IMPLEMENTATION SPECIALIST 77 Profunda Femoral Artery 62 SFA 96 Proximal SFA 67 Mid SFA 71 Distal Popliteal Artery 67 ANDRIY 77 COLLEGE DEAN 17 PDA 60 IMPRESSION: Arterial structures of bilateral lower extremities are patent. There is significant bilateral runoff vessel disease. There is possible stenosis involving the left SFA as detailed above. Transcribed Date/Time: 07/12/2020 11:23 AM
[2020-07-12] MEDS: Cefepime 2 GM in Sodium Chloride 0.9% 100 ML IVPB SCH ×2 (12:10→21:58)
[2020-07-12] MEDS: HumaLOG 300 UNITS/3 ML VIAL SC PRN ×2 (12:10→17:25)
[2020-07-12] MEDS ORDERED: traMADol HCl 50 MG TAB PO PRN (14:09)
[2020-07-12] MEDS ORDERED: Acetaminophen 500 MG TAB PO PRN (14:09)
[2020-07-12 14:16] LABS: SARS-CoV-2 PCR by NAA DETECTED (NotDetected)
--- NOTE | 2020-07-12 14:42 | CON ---
DATE OF CONSULTATION: HISTORY OF PRESENT ILLNESS: Danny Barnes is an 79-year-old male patient, assisted care resident, nonambulatory with a right heel decubitus. This has been cared by a wound care, getting worse. He was admitted, noted to have elevated white count at 18,000 yesterday and 22,000 today. He had a left shift to 16 bands yesterday and 8 today. Blood cultures to date are negative. X-rays of the foot reveals edema. He has severe cellulitis, large ulceration, right heel decubitus, consistent with decubitus. ALLERGIES: LISTED TO SULFA, AMLODIPINE, CARVEDILOL, AND PREDNISONE. THE PATIENT CANNOT VERIFY. MEDICATIONS: 1. Xarelto. 2. Lipitor. 3. Zinc. 4. CoQ10. 5. Florastor. 6. Dilantin. 7. Zofran. 8. Multivitamins. 9. Loperamide. 10. Florinef. 11. FeroSul. 12. Stool softener. 13. Celexa. 14. Vitamin D3. 15. Biotin. 16. Aspirin. 17. Ascorbic acid. 18. Tylenol. 19. Tylenol Extra Strength. PAST SURGICAL HISTORY: 1. Coronary artery bypass grafting. 2. History of aortic stenosis with AVR. 3. Vasectomy. 4. Cholecystectomy. 5. Questionable lung surgery, unable to verify. SOCIAL HISTORY: Tobacco, none. Alcohol, none. Lives in a alf, some cognitive defect. PAST MEDICAL HISTORY: 1. Coronary artery disease, EF 45% to 50%, with history of AVR and CABG. 2. Type 2 diabetes mellitus. 3. AFib, on Xarelto. 4. Cardioversion in 2013. 5. Echocardiogram on 05/03/2019; 45% to 50%, mildly enlarged RV, [id number] tricuspid regurgitation. REVIEW OF SYSTEMS: Not possible. FAMILY HISTORY: Not possible. PHYSICAL EXAMINATION: VITAL SIGNS: Height 5 feet 6 inches, weight 163 pounds, BMI 26, temperature 98.6, heart rate 73, and blood pressure 160/83. HEAD, EARS, EYES, NOSE, AND THROAT: Unremarkable. LUNGS: Clear to auscultation. CARDIAC: Regular rate and rhythm without murmur or gallop. Sternotomy scar well healed in the chest. ABDOMEN: Soft and nontender. EXTREMITIES: Slightly edematous right heel decubitus, 8 cm area of cellulitis with raised ulceration, too painful to evaluate. Nonpalpable pedal pulses. Nonpalpable popliteal pulses. Strongly palpable femoral pulses. LABORATORY DATA: As noted above. BUN and creatinine 37 and 1.25. ASSESSMENT AND PLAN: 1. Atrial fibrillation, on Xarelto, hold. 2. Peripheral arterial disease. 3. Decubitus ulcer, infected right heel. Will need debridement, possible amputation. The patient is nonambulatory. We will discuss with family, tried to call his family, there was no answer. 4. [id number] tricuspid regurgitation. 5. History of aortic valve replacement, on anticoagulation. ADDENDUM: Mr. Barnes was unable to give a complete history. I talked to the patient's son, Dr. Barnes, counselor camp, [place], . The patient's son states that the patient cognitively is usually normal and alert and oriented, but this current diabetic foot infection and illness have caused some cognitive impairment. The patient apparently was walking 2 months ago, but less frequently after that, and once he developed his right foot wound, he was instructed by Wound Care to not walk on his foot. Thus, walking has been minimal. The patient did have cardiac bypass grafting more than [address] Finnegan. He had aortic valve TAVR procedure in [place] in the last year or 2. The patient's son is power of medical record specialist. The patient is full code. The patient does have evidence of PAD and although prior to that conversation with the patient's son, I was not planning on further evaluation due to what I felt was his nonambulatory status, but after talking with Dr. Barnes about his father, a decision was made to obtain Vascular evaluation. I have discussed with Dr. Finnegan. The patient's current foot infection is probably mostly due to his neuropathic ulcer and decubitus and not due to weightbearing except for being more sedentary in bed and a pressure sore, developed a right foot infection. He does have evidence of PAD by exam and ultrasound. We will ask Dr. Finnegan to see him regarding that. Dr. Barnes has requested that we not perform amputation of his leg and only debride the foot at this time. If emergency situations occur in the operating room, such that possible guillotine amputation may be indicated, Dr. Risinger would prefer a phone call, . At this point, we will plan debridement of his foot tomorrow. Job ID: [id number]
[2020-07-12] MEDS: Vancomycin 1 GM in Premix Bag 1 BAG IVPB SCH (16:30)
--- NOTE | 2020-07-12 18:10 | CON ---
DATE OF CONSULTATION: HISTORY OF PRESENT ILLNESS: This is an 79-year-old gentleman, known to me from remote coronary artery bypass grafting. Over the years, he has subsequently required an open aortic valve replacement about a decade ago. He recently had [place] viral infection and then ended up in a nursing facility. He has not ambulated for at least a couple of months and as a result of his position in bed, has developed a heel ulcer on the medial aspect of his right heel and the lateral aspect of his left heel. PAST MEDICAL HISTORY: Includes mildly reduced cardiac ejection fraction, coronary artery disease status post multivessel bypass grafting with patent grafts, aortic valve replacement, type 2 diabetes mellitus, chronic atrial fibrillation. PAST SURGICAL HISTORY: As noted above plus cholecystectomy and possible lung decortication. PHYSICAL EXAMINATION: On examination today, he actually is alert and cooperative when he wakes up, although tends to make high-pitched screaming noises when surprised. His examination is particularly noted on the lower extremities where he has palpable femoral pulses. I am unable to palpate popliteal or pedal pulses, although he has at least biphasic signals in his right DP and peroneal and left PT and DP. I may be able to feel a right DP pulse. Attempted Doppler in his popliteal arteries was not successful due to the patient positioning. He has no peripheral edema. Skin is smooth, soft, and intact other than the heels which are bruised and he has no skin changes of chronic arterial insufficiency. In speaking with his son, the patient demonstrated no symptoms of claudication prior to his recent illnesses. At this time, I think conservative management with offloading of his decubitus heel ulcers would be most appropriate. Although, he does have some peripheral vascular disease, I think his exam today reveals satisfactory arterial signals in regard to possible wound healing. Job ID: [id number]
[2020-07-13] MEDS: metroNIDAZOLE 500 MG in Premix Bag 1 BAG IVPB SCH ×3 (01:01→16:40)
[2020-07-13 07:23] LABS: Anion Gap 13 mmol/L (10-20); BUN (Urea Nitrogen) 43 mg/dL (8.4-25.7); Calc. Creatinine Clearance 47 mL/min (70-130); Calcium 7.4 mg/dL (7.8-10.44); Carbon Dioxide 19 mmol/L (23-31); Chloride 108 mmol/L (98-107); Glucose 250 mg/dL (83-110); Potassium 4.1 mmol/L (3.5-5.1); Sodium 136 mmol/L (136-145)
[2020-07-13 07:23] LABS: #Monocytes 0.9 thou/uL (0.11-0.59); #Neutrophils 11.9 thou/uL (1.40-6.50); %Basophils 0.3 % (0.0-1.0); %Eosinophils 0.3 % (0.0-10.0); %Lymphocytes 7.3 % (21.0-51.0); %Monocytes 6.6 % (0.0-10.0); %Neutrophils 85.5 % (42.0-75.0); Hemoglobin 10.7 g/dL (14.0-18.0); Mean Corpuscular HGB CONC 32.8 g/dL (32.0-36.0); Mean Corpuscular Hemoglobin 33.4 pg (27.0-31.0); Mean Platelet Volume 8.9 fL (7.4-10.4); Platelet Count 165 thou/uL (130-400); RBC Distribution Width 12.1 % (11.5-14.5); Red Blood Cell (RBC) Count 3.19 mill/uL (4.70-6.10)
[2020-07-13] MEDS ORDERED: PHENYLEPHRINE-NS 100 MCG/ML 10 ML SYRINGE ONE (09:23)
[2020-07-13] MEDS ORDERED: PROPOFOL 200 MG/20 ML VIAL ONE (09:23)
[2020-07-13] MEDS ORDERED: metroNIDAZOLE 500 MG/100 ML BAG ONE (09:57)
[2020-07-13] MEDS ORDERED: Fentanyl 100 MCG/2 ML VIAL ONE (10:35)
[2020-07-13] MEDS: Cefepime 2 GM in Sodium Chloride 0.9% 100 ML IVPB SCH ×2 (11:21→23:04)
--- NOTE | 2020-07-13 12:21 | OP ---
DATE OF PROCEDURE: 07/13/2020 PREOPERATIVE DIAGNOSES: Right heel decubitus medial posterior, diabetes, mild PAD, decreased mobility. POSTOPERATIVE DIAGNOSES: Right heel decubitus medial posterior, diabetes, mild PAD, decreased mobility. PROCEDURES PERFORMED: Debridement of right heel decubitus, excising gangrenous necrotic foul-smelling tissue with culture and sensitivity submitted; extensive debridement of skin, tendon, fascia, subcutaneous tissue, and calcaneus using the rongeurs 9 x 5 x 2 cm wound resulting no wound tract fascial planes and circumferentially undermining of the skin, saponified necrotic foul-smelling tissue excised. ANESTHESIA: Intravenous sedation. DESCRIPTION OF PROCEDURE: The patient was taken to the operating room, where under intravenous sedation, right lower extremity was prepared with Betadine and draped in routine fashion. The patient had a decubitus right heel. The necrotic overlying tissue excised. There was necrotic gangrenous foul-smelling tissue and purulent pus. Culture submitted. Undermining necrotic tissue, gangrenous tissue, subcutaneous tissue, connective tissue, fascia debrided deep down to the calcaneus. This resulted in wounds with dimensions as described. There was good bleeding in the periphery. Calcaneus focus excised with a rongeur. Wound Care Team to arrive to place a wound VAC. The patient tolerated procedure well. Job ID: [id number]
[2020-07-13] MEDS: Sodium Chloride 0.9% 1,000 ML IV SCH (14:07)
[2020-07-13] MEDS: Aspirin 81 mg Enteric Coated Tablet PO SCH (14:07)
--- NOTE | 2020-07-13 16:13 | PDOC.HOSPP ---
- Subjective Encounter Date: 07/13/20 Encounter Time: 16:11 Subjective: No overnight events. Patient take to OR today for R heel would debridement. Wound vac was placed. Patient tolerated procedure well. Denies chest pain, SOB. Chart and medication reviewed. - Objective Vital Signs & Weight: Vital Signs (12 hours) Temp Pulse Resp BP Pulse Ox 07/13/20 12:20 96.8 F L 66 17 120/74 100 07/13/20 07:34 97.8 F 67 17 134/75 97 Weight Admit Weight 163 lb 2.273 oz Weight 163 lb 2.273 oz I&O: 07/12/20 07/13/20 07/14/20 06:59 06:59 06:59 Intake Total 75 Output Total 100 Balance -25 Result Diagrams: 07/13/20 05:00 07/13/20 03:30 Additional Labs: Accuchecks 07/13/20 07/12/20 07/12/20 05:52 20:25 16:49 POC Glucose 219 H 198 H 197 H Hospitalist ROS - Review of Systems Constitutional: denies: fever, chills, sweats, weakness, malaise, other Eyes: denies: vision change ENT: denies: nose congestion, throat pain Respiratory: denies: cough, shortness of breath, SOB with excertion Cardiovascular: denies: chest pain, palpitations Gastrointestinal: denies: nausea, vomiting, abdominal pain, diarrhea Genitourinary: denies: dysuria Musculoskeletal: reports: foot pain Neurological: denies: weakness, numbness - Medication Medications: Active Medications Generic Name Dose Route Start Last Admin Trade Name Marcoq PRN Reason Stop Dose Admin Acetaminophen 1,000 mg 07/12/20 14:09 07/12/20 22:00 Acetaminophen 500 Mg Tab PO 1,000 mg Q6H PRN Administration Moderate to Severe Pain (6-10) Aspirin 81 mg 07/12/20 09:00 07/13/20 14:07 Aspirin 81 Mg Enteric Coated Tablet PO Not Given DAILY ASHLY Atorvastatin Calcium 40 mg 07/11/20 21:00 07/12/20 22:00 Atorvastatin Calcium 40 Mg Tab PO 40 mg HS ASHLY Administration Cefepime HCl 2 gm/ Sodium 100 mls @ 200 mls/hr 07/12/20 11:00 07/13/20 11:21 Chloride IVPB Not Given 1100,2300 ASHLY Sodium Chloride 1,000 mls @ 75 mls/hr 07/11/20 17:00 07/13/20 14:07 Normal Saline 0.9% IV Not Given .[id number] ASHLY Vancomycin HCl 1 gm/ Device 200 mls @ 200 mls/hr 07/12/20 17:00 07/12/20 16:30 IVPB 200 mls 1700 ASHLY Administration Metronidazole 500 mg/ Device 100 mls @ 100 mls/hr 07/12/20 08:00 07/13/20 10:10 IVPB Not Given 0800,1600,2359 ASHLY Insulin Human Lispro 0 units 07/11/20 16:18 07/12/20 17:25 Humalog 300 Units/3 Ml Vial SC 2 unit .MILD SLIDING SCALE PRN Administration Mild Correctional Scale Hospitalist Exam Vitals: Vital Signs (12 hours) Temp Pulse Resp BP Pulse Ox 07/13/20 12:20 96.8 F L 66 17 120/74 100 07/13/20 07:34 97.8 F 67 17 134/75 97 Weight Admit Weight 163 lb 2.273 oz Weight 163 lb 2.273 oz General Appearance: NAD, awake alert Eye: PERRL, anicteric sclera ENT: normocephalic atraumatic, no oropharyngeal lesions, moist mucosa Neck: supple, symmetric, no JVD, no thyromegaly, no lymphadenopathy, no carotid bruit Heart: RRR, no murmur, no gallops, no rubs, normal peripheral pulses Respiratory: CTAB, no wheezes, no rales, no ronchi, normal chest expansion, no tachypnea, normal percussion Gastrointestinal: soft, non-tender, non-distended, normal bowel sounds, no palpable masses, no hepatomegaly, no splenomegaly, no bruit Extremities - other findings: Wound vac in place to RLE Skin: normal turgor, no lesions, no rashes Neurological: cranial nerve grossly intact, normal sensation to touch, no weakness, no focal deficits, no new deficit Musculoskeletal: normal tone, normal strength, no muscle wasting Psychiatric: normal affect, normal behavior, A&O x 3 Hosp A/P - Plan 79-year-old male with past medical history of CHF, coronary artery disease status post CABG, A. fib on Xarelto, aortic stenosis status post AVR, type 2 diabetes mellitus who is a intermediate resident who presents with acute worsening of right heel diabetic ulcer with surrounding cellulitis found to be in mild sepsis on presentation. Cellulitis Patient with chronic diabetic ulcer to the right heel. Acute worsening with surrounding erythema and induration extending up to the ankle. Plain film revealed soft tissue swelling but no evidence of gas. Wound not probable to bone. WBC 18.2, patient is afebrile, but is mildly tachycardic to 95. Patient did receive vancomycin and cefepime in emergency room as well as a small fluid bolus. We will continue IV antibiotics and wound care. Given location and chronicity, will also check arterial dopplers to assess for peripheral vascular disease. Would with lots of slough tissue. General surgery took patient for surgical debridement and wound vac was placed. Pt tolerated procedure well. Plan IV abx vanc, cefepime, flagyl Arterial doppler to assess for PVD Wound cultures Wound care consult POD #0 Debridement and wound vac placement Sepsis without septic shock Patient meeting sepsis criteria with elevated lactic acid to 2.5, WBC 18.2 and tachycardia to 95. Sepsis secondary to cellulitis to right heel chronic diabetic ulcer. Patient receiving vancomycin and cefepime in emergency room as well as small fluid bolus. WBC uptrending this am to 22.4. Will add flagyl until wound cultures come back. We will continue IV antibiotics and plan as above. Plan IV antibiotics Gentle IV fluids Trend WBC, lactic acid, fever curve Follow blood, wound cultures NSTEMI Type II Patient with mildly elevated troponin to 0.042, 0.044, 0.066. Likely type II demand ischemia secondary to sepsis. Patient denies chest pain and EKG shows no ischemic changes. Plan -Telemetry monitoring Likely demand ischemia Acute kidney injury Patient with MARIA TERESA BUNs/CR 37/1.37, baseline creatinine approximately 1.0. Slightly improved to 1.25. Will continue gentle IVF. Plan Trend kidney function Gentle IV fluids Avoid nephrotoxic agents Renal dosing as appropriate Atrial fibrillation History of A. fib on Xarelto. EKG shows atrial fibrillation with controlled ventricular rate. Xarelto on hold for surgical debridement. Will continue at discretion of surgical team. Coronary artery disease History of CAD and CABG. We will continue home medications. No chest pain, troponin elevated likely demand ischemia, see NSTEMI plan as above. Type 2 diabetes mellitus History of type 2 diabetes mellitus. Was formally on insulin pump but on review of records appears this was discontinued. Will need to confirm patient's current insulin regimen. Will place on insulin sliding scale and ACHS glucose checks for now. Hypertension Continue home antihypertensives once dosages are confirmed Hyperlipidemia Continue home cholesterol medications once dosages are confirmed History of COVID-19 Patient was screened on admission for COVID-19 and found to be positive. Patient has already had and fully recovered from a prior COVID infection months ago. He is no longer infectious and precautions have been d/c. DVT prophylaxisXarelto on hold for procedure Presumed full codewe will need to confirm status with family and/or intermediate Case discussed with attending physician.
[2020-07-13] MEDS: Vancomycin 1 GM in Premix Bag 1 BAG IVPB SCH (16:40)
[2020-07-13 17:02] LABS: Vancomycin, Trough 12.6 ug/mL
[2020-07-13] MEDS: HumaLOG 300 UNITS/3 ML VIAL SC PRN (18:18)
[2020-07-13] MEDS: Atorvastatin Calcium 40 MG TAB PO SCH (20:34)
[2020-07-14] MEDS: metroNIDAZOLE 500 MG in Premix Bag 1 BAG IVPB SCH ×3 (00:08→15:23)
[2020-07-14] MEDS: Sodium Chloride 0.9% 1,000 ML IV SCH ×2 (00:09→11:38)
[2020-07-14 04:45] LABS: #Eosinphils 0.2 thou/uL (0.0-0.7); #Lymphocytes 1.4 thou/uL (1.20-3.40); #Monocytes 1.5 thou/uL (0.11-0.59); #Neutrophils 16.4 thou/uL (1.40-6.50); %Eosinophils 0.9 % (0.0-10.0); %Lymphocytes 7.3 % (21.0-51.0); %Monocytes 7.6 % (0.0-10.0); %Neutrophils 84.2 % (42.0-75.0); Hemoglobin 12.2 g/dL (14.0-18.0); Mean Corpuscular HGB CONC 31.8 g/dL (32.0-36.0); Mean Platelet Volume 7.8 fL (7.4-10.4); Platelet Count 247 thou/uL (130-400); RBC Distribution Width 12.4 % (11.5-14.5); Red Blood Cell (RBC) Count 3.71 mill/uL (4.70-6.10); White Blood Cell (WBC) Count 19.5 thou/uL (4.8-10.8)
[2020-07-14 05:31] LABS: Chloride 113 mmol/L (98-107); Potassium 4.1 mmol/L (3.5-5.1); Sodium 139 mmol/L (136-145)
[2020-07-14 05:32] LABS: Calcium 7.8 mg/dL (7.8-10.44); Glucose 156 mg/dL (83-110)
[2020-07-14 05:34] LABS: Carbon Dioxide 12 mmol/L (23-31)
[2020-07-14 05:36] LABS: BUN (Urea Nitrogen) 40 mg/dL (8.4-25.7); Calc. Creatinine Clearance 52 mL/min (70-130)
[2020-07-14 05:46] LABS: Anion Gap 18 mmol/L (10-20)
[2020-07-14] MEDS: HumaLOG 300 UNITS/3 ML VIAL SC PRN (06:09)
[2020-07-14] MEDS: Aspirin 81 mg Enteric Coated Tablet PO SCH (08:04)
--- NOTE | 2020-07-14 11:10 | PDOC.HOSPP ---
- Subjective Encounter Date: 07/14/20 Subjective: not very verbal , does not appear in distress - Objective Vital Signs & Weight: Vital Signs (12 hours) Temp Pulse Resp BP BP Pulse Ox 07/14/20 09:11 161/91 H 07/14/20 07:16 98.1 F 92 18 141/91 H 94 L 07/14/20 04:38 98 07/14/20 03:36 97.9 F 70 16 142/75 H 98 Weight Admit Weight 163 lb 2.273 oz Weight 163 lb 2.273 oz I&O: 07/13/20 07/14/20 07/15/20 06:59 06:59 06:59 Intake Total 950 Balance 950 Result Diagrams: 07/14/20 04:15 07/14/20 04:15 Additional Labs: Accuchecks 07/14/20 07/14/20 07/13/20 10:55 05:36 20:30 POC Glucose 152 H 154 H 190 H 07/13/20 16:59 POC Glucose 203 H Hospitalist ROS - Medication Medications: Active Medications Generic Name Dose Route Start Last Admin Trade Name Freq PRN Reason Stop Dose Admin Acetaminophen 1,000 mg 07/12/20 14:09 07/12/20 22:00 Acetaminophen 500 Mg Tab PO 1,000 mg Q6H PRN Administration Moderate to Severe Pain (6-10) Aspirin 81 mg 07/12/20 09:00 07/14/20 08:04 Aspirin 81 Mg Enteric Coated Tablet PO Not Given DAILY ASHLY Atorvastatin Calcium 40 mg 07/11/20 21:00 07/13/20 20:34 Atorvastatin Calcium 40 Mg Tab PO Not Given HS ASHLY Cefepime HCl 2 gm/ Sodium 100 mls @ 200 mls/hr 07/12/20 11:00 07/13/20 23:04 Chloride IVPB 100 mls 1100,2300 ASHLY Administration Sodium Chloride 1,000 mls @ 75 mls/hr 07/11/20 17:00 07/14/20 00:09 Normal Saline 0.9% IV 1,000 mls .[id number] ASHLY Administration Vancomycin HCl 1 gm/ Device 200 mls @ 200 mls/hr 07/12/20 17:00 07/13/20 16:40 IVPB 200 mls 1700 ASHLY Administration Metronidazole 500 mg/ Device 100 mls @ 100 mls/hr 07/12/20 08:00 02/04/21 08:01 IVPB 100 mls 0800,1600,2359 ASHLY Administration Insulin Human Lispro 0 units 07/11/20 16:18 07/14/20 06:09 Humalog 300 Units/3 Ml Vial SC 2 unit .MILD SLIDING SCALE PRN Administration Mild Correctional Scale Hospitalist Exam Vitals: Vital Signs (12 hours) Temp Pulse Resp BP BP Pulse Ox 07/14/20 09:11 161/91 H 07/14/20 07:16 98.1 F 92 18 141/91 H 94 L 07/14/20 04:38 98 07/14/20 03:36 97.9 F 70 16 142/75 H 98 Weight Admit Weight 163 lb 2.273 oz Weight 163 lb 2.273 oz General Appearance: NAD Eye: PERRL ENT: normocephalic atraumatic Neck: supple, symmetric Heart: RRR, no murmur, no gallops Respiratory: CTAB, no wheezes Gastrointestinal: soft, non-tender, non-distended Extremities: no cyanosis, no clubbing Skin: normal turgor Hosp A/P (1) Cellulitis Code(s): L03.90 - CELLULITIS, UNSPECIFIED Status: Acute (2) Atrial flutter Code(s): I48.92 - UNSPECIFIED ATRIAL FLUTTER Status: Acute (3) DM2 (diabetes mellitus, type 2) Status: Chronic 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 fib on Xarelto, aortic stenosis status post AVR, type 2 diabetes mellitus who is a [place] [facility] resident who presents with acute worsening of right heel diabetic ulcer with surrounding cellulitis found to be in mild sepsis on presentation. Cellulitis Patient with chronic diabetic ulcer to the right heel. Acute worsening with surrounding erythema and induration extending up to the ankle. Plain film revealed soft tissue swelling but no evidence of gas. Wound not probable to bone. WBC 18.2, patient is afebrile, but is mildly tachycardic to 95. Patient did receive vancomycin and cefepime in emergency room as well as a small fluid bolus. We will continue IV antibiotics and wound care. Given location and chronicity, will also check arterial dopplers to assess for peripheral vascular disease. Would with lots of slough tissue. General surgery took patient for surgical debridement and wound vac was placed. Pt tolerated procedure well. Plan IV abx vanc, cefepime, flagyl Arterial doppler to assess for PVD Wound cultures Wound care consult POD #1 Debridement and wound vac placement Sepsis without septic shock Patient meeting sepsis criteria with elevated lactic acid to 2.5, WBC 18.2 and tachycardia to 95. Sepsis secondary to cellulitis to right heel chronic diabetic ulcer. Patient receiving vancomycin and cefepime in emergency room as well as small fluid bolus. WBC uptrending this am to 22.4. Will add flagyl until wound cultures come back. We will continue IV antibiotics and plan as above. Plan IV antibiotics Gentle IV fluids Trend WBC, lactic acid, fever curve Follow blood, wound cultures NSTEMI Type II Patient with mildly elevated troponin to 0.042, 0.044, 0.066. Likely type II demand ischemia secondary to sepsis. Patient denies chest pain and EKG shows no ischemic changes. Plan -Telemetry monitoring Likely demand ischemia Acute kidney injury Patient with MARIA TERESA BUNs/CR 37/1.37, baseline creatinine approximately 1.0. Slightly improved to 1.25. Will continue gentle IVF. Plan Trend kidney function Gentle IV fluids Avoid nephrotoxic agents Renal dosing as appropriate Atrial fibrillation History of A. fib on Xarelto. EKG shows atrial fibrillation with controlled ventricular rate. Xarelto on hold for surgical debridement. Will continue at discretion of surgical team. Coronary artery disease History of CAD and CABG. We will continue home medications. No chest pain, troponin elevated likely demand ischemia, see NSTEMI plan as above. Type 2 diabetes mellitus History of type 2 diabetes mellitus. Was formally on insulin pump but on review of records appears this was discontinued. Will need to confirm patient's current insulin regimen. Will place on insulin sliding scale and ACHS glucose checks for now. Hypertension Continue home antihypertensives once dosages are confirmed Hyperlipidemia Continue home cholesterol medications once dosages are confirmed History of COVID-19 Patient was screened on admission for COVID-19 and found to be positive. Patient has already had and fully recovered from a prior COVID infection months ago. He is no longer infectious and precautions have been d/c. DVT prophylaxisXarelto on hold for procedure Presumed full codewe will need to confirm status with family and/or [place] [facility] plan for today 2/4 PT evaluated him for placement, seems that he requires SNF we resumed a soft mechanical diet. will monitor his mental status and touch base with his son at some point. awaiting his med rec to be done, son will bring the list. Fayerelto is still on hold. will add lopressor PRN for hypertension.
[2020-07-14] MEDS: Cefepime 2 GM in Sodium Chloride 0.9% 100 ML IVPB SCH ×2 (11:37→23:25)
[2020-07-14] MEDS: VANCOMYCIN 1.25 GM/250 ML BAG 1.25 GM in Premix Bag 1 BAG IVPB SCH (16:12)
--- NOTE | 2020-07-14 16:42 | CON ---
DATE OF CONSULTATION: 07/14/2020 REASON FOR CONSULTATION: Right heel osteomyelitis. HISTORY OF PRESENT ILLNESS: An 79-year-old who has history of coronary artery disease, ischemic cardiomyopathy, aortic stenosis, prior aortic valve replacement, diabetes type 2, and lives in a alf and was seen to have a right heel ulcer, which has been cared for there, but developed inflammatory changes, so he was transferred over. On arrival, BP 130/70, O2 saturation 95, temperature 98.6. There is an ulceration in right heel with purulence and surrounding erythema. The patient had surgical debridement. This was carried out yesterday and there is a necrotic foul-smelling tissue. The gangrenous tissue was debrided down to the bone. There is a negative pressure dressing placed. Pathology of tissue with just acute inflammation and abscess formation. Cultures yet not finalized, but have 2 different gram negatives and Streptococcus. Mr. Barnes is lying on his left lateral decubitus. He keeps his eyes closed, does not interact with the examiner other than screaming when we touch him. He does not follow commands. PAST MEDICAL HISTORY: 1. Coronary artery disease. 2. Ischemic cardiomyopathy. 3. Type 2 diabetes. 4. Atrial fibrillation. 5. Most likely has had CVAs in the past. 6. Has dementia in the alf status. 7. Vasectomy. 8. Six-vessel bypass. 9. Aortic valve replacement. 10. Cholecystectomy. SOCIAL HISTORY: Never smoker reportedly. [facility]. ALLERGIES: NORVASC, COREG, PREDNISONE, SULFA DRUGS, MAGNESIUM, XARELTO, INSULIN, AND ASPIRIN. MEDICATIONS: Currently, he is gettin. Cefepime. 2. Vancomycin. 3. Flagyl. PHYSICAL EXAMINATION: VITAL SIGNS: T-max 100.7, BP 120/80, heart rate 82, respirations 12-18, sats 94-97 on room air. SKIN: Post surgical wound with kind of irregular shaped ulcer, surgical wound open with fresh red tissue at the base. Peripheral IV access. He is voiding in the diaper. Exam was difficult because of lack of cooperation. HEENT: The patient is edentulous. LUNGS: Clear. HEART: S1 and S2. Regular rate with a click of the prosthetic valve. ABDOMEN: Soft, not distended. No ascites. No bladder distention. No guarding. EXTREMITIES: He seems to be able to move extremities, but I think the left side is paretic. NEUROLOGIC: He keeps his eyes closed and does not interact with the examiner, screams when touched, but not follow commands. LABORATORY DATA: White cell count 18,000 and now is 19.5, hemoglobin 12, platelets 247, and 84% neutrophils. Creatinine 1.18, which is improved from admission. Liver profile: AST 108, ALT 61, alkaline phosphatase 260, and albumin 3.0. Troponin 0.042. Urinalysis 0-3 wbc's. SARS-CoV-2 is detected. Bear in mind, the patient had a positive SARS-CoV-2 assay in March last year, so this is not pertinent at this moment. IMAGING STUDIES: There is a chest x-ray, which showed left pleural effusion, atelectases versus infiltrate. On 07/12, arterial ultrasound with patent arterial structures, but there is significant runoff disease. There is a chest CT from June with lymph nodes enlarged mildly, pleural effusion loculated, and left hemithorax. There is a brain MRI from 2018 with no intracranial abnormalities except for small-vessel ischemic change and 2 small remote lacunar infarctions. ASSESSMENT: 1. Ischemic cardiomyopathy. 2. Vascular dementia. 3. Pressure ulcer in right heel with osteomyelitis status post surgical debridement. 4. Peripheral vascular disease. PLAN: Going forward, I will wait for the cultures and then hopefully devise a regimen, it he can be administered via the oral route. If not feasible, then we will need a PICC line and protracted treatment at the alf with followup labs and complex wound care. Vascular disease may hinder healing process and result in higher levels of amputation. Job ID: [id number]
[2020-07-14] MEDS: Atorvastatin Calcium 40 MG TAB PO SCH (22:33)
[2020-07-15] MEDS: metroNIDAZOLE 500 MG in Premix Bag 1 BAG IVPB SCH ×4 (01:13→23:09)
[2020-07-15] MEDS: Metoprolol Tartrate 5 MG/5 ML VIAL IVP PRN ×3 (04:32→21:31)
[2020-07-15] MEDS: Sodium Chloride 0.9% 1,000 ML IV SCH ×2 (04:37→17:04)
[2020-07-15 04:51] LABS: Anion Gap 23 mmol/L (10-20); BUN (Urea Nitrogen) 39 mg/dL (8.4-25.7); Calc. Creatinine Clearance 51 mL/min (70-130); Carbon Dioxide 10 mmol/L (23-31); Chloride 117 mmol/L (98-107); Glucose 213 mg/dL (83-110); Potassium 4.3 mmol/L (3.5-5.1); Sodium 146 mmol/L (136-145)
[2020-07-15 05:07] LABS: Hemoglobin 11.7 g/dL (14.0-18.0); Mean Corpuscular HGB CONC 31.6 g/dL (32.0-36.0); Mean Corpuscular Hemoglobin 32.8 pg (27.0-31.0); Mean Platelet Volume 7.8 fL (7.4-10.4); Platelet Count 270 thou/uL (130-400); RBC Distribution Width 12.4 % (11.5-14.5); Red Blood Cell (RBC) Count 3.56 mill/uL (4.70-6.10); White Blood Cell (WBC) Count 17.7 thou/uL (4.8-10.8)
[2020-07-15 05:08] LABS: Band 33 % (5-11); Lymphocytes 1 % (21-51); MDiff Complete? YES; Monocytes 4 % (0-10); Neutrophil 62 % (42-75); Platelet Morphology Comment Appears Adequate
[2020-07-15] MEDS: HumaLOG 300 UNITS/3 ML VIAL SC PRN (06:12)
[2020-07-15] MEDS: Aspirin 81 mg Enteric Coated Tablet PO SCH (08:12)
[2020-07-15] MEDS: Cefepime 2 GM in Sodium Chloride 0.9% 100 ML IVPB SCH ×2 (11:24→21:31)
--- NOTE | 2020-07-15 17:02 | PRG ---
DATE OF SERVICE: 07/15/2020 Mr. Barnes's wound VAC was changed today. I have viewed his wound with Wound Care. Dr. Charlton is seeing the patient. The patient's right heel wound is very large. There is no surrounding redness. Wound looks stable. There is a little granulation tissue, some bleeding. Cultures, E coli, Enterococcus, Morganella morganii. The patient is confused. He is not compliant in positioning and keeping his weight off the heels. We will have to order a heel protector mechanism because of this. I understand that the patient's son, Dr. Barnes, Cardiology from [facility] will be visiting him this weekend. The patient may need a PICC line, pending sensitivities and culture results. At this point, I would continue wound care. We will view the wound again on Saturday. Order heel protector due to the patient's confusion and noncompliance. Job ID: [id number]
[2020-07-15] MEDS: VANCOMYCIN 1.25 GM/250 ML BAG 1.25 GM in Premix Bag 1 BAG IVPB SCH (17:04)
--- NOTE | 2020-07-15 19:04 | PDOC.HOSPP ---
- Subjective Subjective: appears comfortable but not oriented and does not follow command - Objective Vital Signs & Weight: Vital Signs (12 hours) Temp Pulse Resp BP BP Pulse Ox 07/15/20 15:00 97.6 F 81 18 131/96 H 98 07/15/20 11:32 97.5 F L 95 18 173/67 H 99 07/15/20 07:11 97.7 F 69 18 129/78 96 Weight Admit Weight 163 lb 2.273 oz Weight 163 lb 2.273 oz I&O: 07/14/20 07/15/20 07/16/20 06:59 06:59 06:59 Intake Total 950 2558 Balance 950 2558 Result Diagrams: 07/15/20 04:02 07/15/20 04:02 Additional Labs: Accuchecks 07/15/20 07/15/20 07/15/20 17:15 10:34 05:39 POC Glucose 206 H 159 H 217 H 07/14/20 20:38 POC Glucose 176 H Hospitalist ROS - Medication Medications: Active Medications Generic Name Dose Route Start Last Admin Trade Name Freq PRN Reason Stop Dose Admin Acetaminophen 1,000 mg 07/12/20 14:09 07/12/20 22:00 Acetaminophen 500 Mg Tab PO 1,000 mg Q6H PRN Administration Moderate to Severe Pain (6-10) Aspirin 81 mg 07/12/20 09:00 07/15/20 08:12 Aspirin 81 Mg Enteric Coated Tablet PO Not Given DAILY ASHLY Atorvastatin Calcium 40 mg 07/11/20 21:00 07/14/20 22:33 Atorvastatin Calcium 40 Mg Tab PO Not Given HS ASHLY Cefepime HCl 2 gm/ Sodium 100 mls @ 200 mls/hr 07/12/20 11:00 07/15/20 11:24 Chloride IVPB 100 mls 1100,2300 ASHLY Administration Sodium Chloride 1,000 mls @ 75 mls/hr 07/11/20 17:00 07/15/20 17:04 Normal Saline 0.9% IV 1,000 mls .[id number] ASHYL Administration Metronidazole 500 mg/ Device 100 mls @ 100 mls/hr 07/12/20 08:00 07/15/20 15:00 IVPB 100 mls 0800,1600,2359 ASHLY Administration Vancomycin HCl 1.25 gm/ Device 250 mls @ 166.667 mls/hr 07/14/20 17:00 07/15/20 17:04 IVPB 250 mls 1700 ASHLY Administration Insulin Human Lispro 0 units 07/11/20 16:18 07/15/20 06:12 Humalog 300 Units/3 Ml Vial SC 3 unit .MILD SLIDING SCALE PRN Administration Mild Correctional Scale Metoprolol Tartrate 5 mg 07/14/20 11:33 07/15/20 11:24 Metoprolol Tartrate 5 Mg/5 Ml Vial IVP 5 mg Q6H PRN Administration SBP >140 Hospitalist Exam Vitals: Vital Signs (12 hours) Temp Pulse Resp BP BP Pulse Ox 07/15/20 15:00 97.6 F 81 18 131/96 H 98 07/15/20 11:32 97.5 F L 95 18 173/67 H 99 07/15/20 07:11 97.7 F 69 18 129/78 96 Weight Admit Weight 163 lb 2.273 oz Weight 163 lb 2.273 oz General Appearance: ill appearing ENT: normocephalic atraumatic Neck: supple, symmetric Heart: RRR, no murmur Gastrointestinal: soft, non-tender, non-distended Extremities: no cyanosis Hosp A/P (1) Cellulitis Code(s): L03.90 - CELLULITIS, UNSPECIFIED Status: Acute (2) Atrial flutter Code(s): I48.92 - UNSPECIFIED ATRIAL FLUTTER Status: Acute (3) DM2 (diabetes mellitus, type 2) Status: Chronic Qualifiers: Diabetes mellitus usp insulin use: with usp use Diabetes mellitus complication status: with hypoglycemia Plan: Diabetes mellitus system administration advisor insulin use: with system administration advisor use Diabetes mellitus complication status: with hypoglycemia Plan: 79-year-old male with past medical history of CHF, coronary artery disease stat us post CABG, A. fib on Xarelto, aortic stenosis status post AVR, type 2 diabetes mellitus who is a assisted resident who presents with acute worsening of right heel diabetic ulcer with surrounding cellulitis found to be in mild sepsis on presentation. Cellulitis Patient with chronic diabetic ulcer to the right heel. Acute worsening with surrounding erythema and induration extending up to the ankle. Plain film revealed soft tissue swelling but no evidence of gas. Wound not probable to bone. WBC 18.2, patient is afebrile, but is mildly tachycardic to 95. Patient did receive vancomycin and cefepime in emergency room as well as a small fluid bolus. We will continue IV antibiotics and wound care. Given location and chronicity, will also check arterial dopplers to assess for peripheral vascular disease. Would with lots of slough tissue. General surgery took patient for surgical debridement and wound vac was placed. Pt tolerated procedure well. Plan IV abx vanc, cefepime, flagyl Arterial doppler to assess for PVD Wound cultures Wound care consult POD #1 Debridement and wound vac placement Sepsis without septic shock Patient meeting sepsis criteria with elevated lactic acid to 2.5, WBC 18.2 and tachycardia to 95. Sepsis secondary to cellulitis to right heel chronic diabetic ulcer. Patient receiving vancomycin and cefepime in emergency room as well as small fluid bolus. WBC uptrending this am to 22.4. Will add flagyl until wound cultures come back. We will continue IV antibiotics and plan as above. Plan IV antibiotics Gentle IV fluids Trend WBC, lactic acid, fever curve Follow blood, wound cultures NSTEMI Type II Patient with mildly elevated troponin to 0.042, 0.044, 0.066. Likely type II demand ischemia secondary to sepsis. Patient denies chest pain and EKG shows no ischemic changes. Plan -Telemetry monitoring Likely demand ischemia Acute kidney injury Patient with MARIA TERESA BUNs/CR 37/1.37, baseline creatinine approximately 1.0. Slightly improved to 1.25. Will continue gentle IVF. Plan Trend kidney function Gentle IV fluids Avoid nephrotoxic agents Renal dosing as appropriate Atrial fibrillation History of A. fib on Xarelto. EKG shows atrial fibrillation with controlled ventricular rate. Xarelto on hold for surgical debridement. Will continue at discretion of surgical team. Coronary artery disease History of CAD and CABG. We will continue home medications. No chest pain, t roponin elevated likely demand ischemia, see NSTEMI plan as above. Type 2 diabetes mellitus History of type 2 diabetes mellitus. Was formally on insulin pump but on review of records appears this was discontinued. Will need to confirm patient's current insulin regimen. Will place on insulin sliding scale and ACHS glucose checks for now. Hypertension Continue home antihypertensives once dosages are confirmed Hyperlipidemia Continue home cholesterol medications once dosages are confirmed History of COVID-19 Patient was screened on admission for COVID-19 and found to be positive. Patient has already had and fully recovered from a prior COVID infection months ago. He is no longer infectious and precautions have been d/c. DVT prophylaxisXarelto on hold for procedure Presumed full codewe will need to confirm status with family and/or assisted plan for today 07/14 PT evaluated him for placement, seems that he requires SNF we resumed a soft mechanical diet. will monitor his mental status and touch base with his son at some point. awaiting his med rec to be done, son will bring the list. Xarelto is still on hold. will add lopressor PRN for hypertension. plan for today 07/15 He remains not very oriented and does not follow command. his culture are back and results noted, we are awaiting sensitivities, until then we will continue his current antibiotherapy. although we called the facility and his son, we are still unable to verify his med rec.
[2020-07-15] MEDS: Atorvastatin Calcium 40 MG TAB PO SCH (21:31)
[2020-07-16 04:30] LABS: #Eosinphils 0.1 thou/uL (0.0-0.7); #Lymphocytes 1.1 thou/uL (1.20-3.40); #Monocytes 1.2 thou/uL (0.11-0.59); #Neutrophils 12.4 thou/uL (1.40-6.50); %Basophils 0.1 % (0.0-1.0); %Eosinophils 0.6 % (0.0-10.0); %Lymphocytes 7.3 % (21.0-51.0); %Monocytes 7.9 % (0.0-10.0); %Neutrophils 84.1 % (42.0-75.0); Hemoglobin 12.1 g/dL (14.0-18.0); Mean Corpuscular HGB CONC 32.2 g/dL (32.0-36.0); Mean Corpuscular Hemoglobin 32.9 pg (27.0-31.0); Mean Platelet Volume 7.3 fL (7.4-10.4); Platelet Count 322 thou/uL (130-400); RBC Distribution Width 12.6 % (11.5-14.5); Red Blood Cell (RBC) Count 3.68 mill/uL (4.70-6.10); White Blood Cell (WBC) Count 14.8 thou/uL (4.8-10.8)
[2020-07-16 04:47] LABS: Anion Gap 17 mmol/L (10-20); BUN (Urea Nitrogen) 33 mg/dL (8.4-25.7); Calc. Creatinine Clearance 55 mL/min (70-130); Calcium 8.2 mg/dL (7.8-10.44); Carbon Dioxide 13 mmol/L (23-31); Chloride 118 mmol/L (98-107); Glucose 212 mg/dL (83-110); Potassium 3.4 mmol/L (3.5-5.1); Sodium 145 mmol/L (136-145)
[2020-07-16] MEDS: HumaLOG 300 UNITS/3 ML VIAL SC PRN ×2 (06:09→17:58)
[2020-07-16] MEDS: Sodium Chloride 0.9% 1,000 ML IV SCH (09:37)
[2020-07-16] MEDS: metroNIDAZOLE 500 MG in Premix Bag 1 BAG IVPB SCH ×2 (09:38→15:09)
[2020-07-16] MEDS: Aspirin 81 mg Enteric Coated Tablet PO SCH (09:38)
--- NOTE | 2020-07-16 11:42 | PDOC.HOSPP ---
- Subjective Encounter Date: 07/16/20 Subjective: less responsive today - Objective Vital Signs & Weight: Vital Signs (12 hours) Temp Pulse Resp BP Pulse Ox 07/16/20 08:15 97.7 F 75 23 H 166/108 H 98 07/16/20 03:55 97.4 F L 70 23 H 137/70 99 Weight Admit Weight 163 lb 2.273 oz Weight 163 lb 2.273 oz I&O: 07/15/20 07/16/20 07/17/20 06:59 06:59 06:59 Intake Total 3367 Balance 3367 Result Diagrams: 07/16/20 13:02 07/16/20 13:02 Additional Labs: Accuchecks 07/16/20 07/16/20 07/15/20 10:15 05:49 21:36 POC Glucose 181 H 192 H 232 H 07/15/20 17:15 POC Glucose 206 H Hospitalist ROS - Medication Medications: Active Medications Generic Name Dose Route Start Last Admin Trade Name Freq PRN Reason Stop Dose Admin Acetaminophen 1,000 mg 07/12/20 14:09 07/12/20 22:00 Acetaminophen 500 Mg Tab PO 1,000 mg Q6H PRN Administration Moderate to Severe Pain (6-10) Aspirin 81 mg 07/12/20 09:00 07/16/20 09:38 Aspirin 81 Mg Enteric Coated Tablet PO Not Given DAILY ASHLY Atorvastatin Calcium 40 mg 07/11/20 21:00 07/15/20 21:31 Atorvastatin Calcium 40 Mg Tab PO Not Given HS ASHLY Cefepime HCl 2 gm/ Sodium 100 mls @ 200 mls/hr 07/12/20 11:00 07/15/20 21:31 Chloride IVPB 100 mls 1100,2300 ASHLY Administration Sodium Chloride 1,000 mls @ 75 mls/hr 07/11/20 17:00 07/16/20 09:37 Normal Saline 0.9% IV 1,000 mls .[id number] ASHLY Administration Metronidazole 500 mg/ Device 100 mls @ 100 mls/hr 07/12/20 08:00 07/16/20 09:38 IVPB 100 mls 0800,1600,2359 ASHLY Administration Vancomycin HCl 1.25 gm/ Device 250 mls @ 166.667 mls/hr 07/14/20 17:00 07/15/20 17:04 IVPB 250 mls 1700 ASHLY Administration Insulin Human Lispro 0 units 07/11/20 16:18 07/16/20 06:09 Humalog 300 Units/3 Ml Vial SC 2 unit .MILD SLIDING SCALE PRN Administration Mild Correctional Scale Insulin Human Lispro 0 units 07/11/20 16:18 07/15/20 22:06 Humalog 300 Units/3 Ml Vial SC 2 unit .BEDTIME SLIDING SC PRN Administration Bedtime Correctional Scale Metoprolol Tartrate 5 mg 07/14/20 11:33 07/15/20 21:31 Metoprolol Tartrate 5 Mg/5 Ml Vial IVP 5 mg Q6H PRN Administration SBP >140 Hospitalist Exam Vitals: Vital Signs (12 hours) Temp Pulse Resp BP Pulse Ox 07/16/20 08:15 97.7 F 75 23 H 166/108 H 98 07/16/20 03:55 97.4 F L 70 23 H 137/70 99 Weight Admit Weight 163 lb 2.273 oz Weight 163 lb 2.273 oz General Appearance: ill appearing ENT: normocephalic atraumatic Heart: RRR, no murmur Respiratory: CTAB Hosp A/P (1) Cellulitis Code(s): L03.90 - CELLULITIS, UNSPECIFIED Status: Acute (2) Atrial flutter Code(s): I48.92 - UNSPECIFIED ATRIAL FLUTTER Status: Acute (3) DM2 (diabetes mellitus, type 2) Status: Chronic Qualifiers: Diabetes mellitus termite inspector insulin use: with detention use Diabetes mellitus complication status: with hypoglycemia - Plan (1) Cellulitis Code(s): L03.90 - CELLULITIS, UNSPECIFIED Status: Acute (2) Atrial flutter Code(s): I48.92 - UNSPECIFIED ATRIAL FLUTTER Status: Acute (3) DM2 (diabetes mellitus, type 2) Status: Chronic Qualifiers: Diabetes mellitus detention insulin use: with termite inspector use Diabetes mellitus complication status: with hypoglycemia Plan: Diabetes mellitus detention insulin use: with termite inspector use Diabetes mellitus complication status: with hypoglycemia Plan: 79-year-old male with past medical history of CHF, coronary artery disease status post CABG, A. fib on Xarelto, aortic stenosis status post AVR, type 2 diabetes mellitus who is a correction resident who presents with acute worsening of right heel diabetic ulcer with surrounding cellulitis found to be in mild sepsis on presentation. Cellulitis Patient with chronic diabetic ulcer to the right heel. Acute worsening with surrounding erythema and induration extending up to the ankle. Plain film revealed soft tissue swelling but no evidence of gas. Wound not probable to bone. WBC 18.2, patient is afebrile, but is mildly tachycardic to 95. Patient did receive vancomycin and cefepime in emergency room as well as a small fluid bolus. We will continue IV antibiotics and wound care. Given location and chronicity, will also check arterial dopplers to assess for peripheral vascular disease. Would with lots of slough tissue. General surgery took patient for surgical debridement and wound vac was placed. Pt tolerated procedure well. Plan IV abx vanc, cefepime, flagyl Arterial doppler to assess for PVD Wound cultures Wound care consult POD #1 Debridement and wound vac placement Sepsis without septic shock Patient meeting sepsis criteria with elevated lactic acid to 2.5, WBC 18.2 and tachycardia to 95. Sepsis secondary to cellulitis to right heel chronic diabetic ulcer. Patient receiving vancomycin and cefepime in emergency room as well as small fluid bolus. WBC uptrending this am to 22.4. Will add flagyl until wound cultures come back. We will continue IV antibiotics and plan as above. Plan IV antibiotics Gentle IV fluids Trend WBC, lactic acid, fever curve Follow blood, wound cultures NSTEMI Type II Patient with mildly elevated troponin to 0.042, 0.044, 0.066. Likely type II demand ischemia secondary to sepsis. Patient denies chest pain and EKG shows no ischemic changes. Plan -Telemetry monitoring Likely demand ischemia Acute kidney injury Patient with MARIA TERESA BUNs/CR 37/1.37, baseline creatinine approximately 1.0. Slightly improved to 1.25. Will continue gentle IVF. Plan Trend kidney function Gentle IV fluids Avoid nephrotoxic agents Renal dosing as appropriate Atrial fibrillation History of A. fib on Xarelto. EKG shows atrial fibrillation with controlled ventricular rate. Xarelto on hold for surgical debridement. Will continue at d iscretion of surgical team. Coronary artery disease History of CAD and CABG. We will continue home medications. No chest pain, troponin elevated likely demand ischemia, see NSTEMI plan as above. Type 2 diabetes mellitus History of type 2 diabetes mellitus. Was formally on insulin pump but on review of records appears this was discontinued. Will need to confirm patient's current insulin regimen. Will place on insulin sliding scale and ACHS glucose checks for now. Hypertension Continue home antihypertensives once dosages are confirmed Hyperlipidemia Continue home cholesterol medications once dosages are confirmed History of COVID-19 Patient was screened on admission for COVID-19 and found to be positive. Patient has already had and fully recovered from a prior COVID infection months ago. He is no longer infectious and precautions have been d/c. DVT prophylaxisXarelto on hold for procedure Presumed full codewe will need to confirm status with family and/or correction plan for today 2 PT evaluated him for placement, seems that he requires SNF we resumed a soft mechanical diet. will monitor his mental status and touch base with his son at some point. awaiting his med rec to be done, son will bring the list. Xarelto is still on hold. will add lopressor PRN for hypertension. plan for today 07/15 He remains not very oriented and does not follow command. his culture are back and results noted, we are awaiting sensitivities, until then we will continue his current antibiotherapy. although we called the facility and his son, we are still unable to verify his med rec. plan for today 2 less responsive today, labs indicating metatbolic acidosis, I will do a CT head stat, will do an ABG. son at the bedside. further management as per clinical results. addendum @ 8 pm an extensive workup was done today, his metabolic acidosis is still not explained, possibly due to a state of ketosis as his urine showed ketones. CT head did not show any bleeds, Neurology and Nephrology saw him, his EEG did not show any specific seizure activity. His son was present all day, I kept him updated with all the results, he is an MD, he requested a change in his ATB as the current regimen can cause encephalopathy, I will change to Zosyn. I will start him on PPN as well.
--- NOTE | 2020-07-16 12:13 | CT ---
CT Brain WO Con: 07/16/2020 11:55 AM CLINICAL HISTORY: Confusion. IMAGING TECHNIQUE: Multiple CT images were obtained of the brain without IV contrast. COMPARISON: Prior exam dated June 05, 2019 FINDINGS: BRAIN: Evidence of acute infarct: None. Evidence of chronic ischemic change:There is mild chronic small vessel white matter ischemic change. 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 Evidence of intracranial hemorrhage: None. Evidence of brain volume loss:There is diffuse atrophy Evidence of midline shift: Third ventricle and septum pellucidum are midline. Ventricles: Normal. No hydrocephalus. SKULL: Intact. VISUALIZED PARANASAL SINUSES: There is an air-fluid level within the right sphenoid sinus. MASTOID AIR CELLS: Clear. EXTRACRANIAL SOFT TISSUES: There is a linear density within the vitreous of the right globe suspicio us for either a displaced intraocular lens or chronic retinal detachment. This is new from the prior exam. IMPRESSION: No acute intracranial abnormality. Chronic ischemic change and diffuse cerebral atrophy as above. Linear density in the vitreous of the right globe suspicious for either displaced intraocular lens or chronic retinal detachment that has been an interval development from the prior exam.
[2020-07-16] MEDS: Cefepime 2 GM in Sodium Chloride 0.9% 100 ML IVPB SCH (12:24)
[2020-07-16 13:09] LABS: Actual Bicarbonate (HCO3a) 15.2 mEq/L (22-28); Base Excess (BEa) -8.5 mEq/L (-2.0 to +3.0); CO2 Tension 26.8 mmHg (35.0-45.0); Calcium, Ionized (arterial) 1.21 mmol/L (1.12-1.30); Carboxyhemoglobin (COHb) 0.4 gm% (0.0-3.0); Hemoglobin (Hb) 12.6 g/dL (14.0-18.0); O2 Tension (PaO2), arterial 85.6 mmHg (> 60.0); pH, Arterial 7.37 (7.35-7.45)
[2020-07-16 13:10] LABS: Puncture Site RRA
[2020-07-16 13:13] LABS: #Eosinphils 0.2 thou/uL (0.0-0.7); #Lymphocytes 1.3 thou/uL (1.20-3.40); #Monocytes 1.2 thou/uL (0.11-0.59); #Neutrophils 10.8 thou/uL (1.40-6.50); %Basophils 0.1 % (0.0-1.0); %Eosinophils 1.2 % (0.0-10.0); %Lymphocytes 9.7 % (21.0-51.0); %Monocytes 8.8 % (0.0-10.0); %Neutrophils 80.3 % (42.0-75.0); Hemoglobin 12.1 g/dL (14.0-18.0); Mean Corpuscular HGB CONC 32.1 g/dL (32.0-36.0); Mean Corpuscular Hemoglobin 32.8 pg (27.0-31.0); Platelet Count 334 thou/uL (130-400); RBC Distribution Width 12.6 % (11.5-14.5); White Blood Cell (WBC) Count 13.4 thou/uL (4.8-10.8)
[2020-07-16 13:43] LABS: ALT (SGPT) 28 U/L (8-55); AST (SGOT) 45 U/L (5-34); Albumin 2.4 g/dL (3.4-4.8); Alkaline Phosphatase 157 U/L (40-110); Anion Gap 18 mmol/L (10-20); BUN (Urea Nitrogen) 31 mg/dL (8.4-25.7); Bilirubin, Total 0.5 mg/dL (0.2-1.2); Calc. Creatinine Clearance 55 mL/min (70-130); Calcium 8.2 mg/dL (7.8-10.44); Carbon Dioxide 14 mmol/L (23-31); Chloride 120 mmol/L (98-107); Globulin 3.5 g/dL (2.4-3.5); Glucose 198 mg/dL (83-110); Potassium 3.3 mmol/L (3.5-5.1); Protein, Total 5.9 g/dL (5.8-8.1); Sodium 149 mmol/L (136-145)
[2020-07-16 14:02] LABS: Lactic Acid 1.4 mmol/L (0.5-2.2)
[2020-07-16 14:10] LABS: Phosphorus 1.8 mg/dL (2.3-4.7)
[2020-07-16] MEDS ORDERED: Potassium Phosphate 15 MMOL in Sodium Chloride 0.9% 250 ML 250 ML IVPB SCH (14:30)
[2020-07-16] MEDS ORDERED: Potassium Chloride 40 MEQ in Premix Bag 1 BAG IVPB SCH (14:30)
[2020-07-16] MEDS ORDERED: Dextrose 5% w/ 20 mEq KCl 1,000 ML IV SCH (15:45)
--- NOTE | 2020-07-16 15:45 | CON ---
NEUROLOGY CONSULTATION DATE OF CONSULTATION: 07/16/2020 REASON FOR CONSULTATION: Altered mental status. HISTORY OF PRESENT ILLNESS: Mr. Danny Barnes is an 79-year-old male with medical history significant for congestive heart failure with ejection fraction of 40%- 45% and diastolic function, coronary artery disease status post VT, atrial fibrillation on Xarelto, status post aortic valve replacement, type 2 diabetes mellitus, right eye blindness, presented to the emergency room on 07/11/2020 because of right foot pain concerning for right heel wound. He does have chronic ulcer and was admitted for further evaluation. However, since the last 2-3 days, he has waxing and waning mental status and this morning when son came in the morning, he was totally unresponsive, so Neurology was consulted for further evaluation. Head CT was done, which was negative for acute intracranial pathology. The patient is on antibiotics because of wound care. ALLERGIES: SULFA, AMLODIPINE, CARVEDILOL HOME MEDICATIONS: 1. Aspirin. 2. Biotin. 3. Glucosamine. 4. Humalog insulin. 5. Multivitamin. 6. Xarelto. 7. Atorvastatin. 8. Docusate. 9. Magnesium oxide. 10. Fludrocortisone. 11. Coenzyme Q. 12. Loperamide. 13. Phenytoin. 14. Sodium. 15. Saccharomyces boulardii. 16. Acetaminophen. 17. Citalopram. 18. Zofran. 19. Cholecalciferol. 20. Ferrous sulfate. 21. Zinc sulfate. PAST MEDICAL HISTORY: Congestive heart failure, coronary artery disease, aortic stenosis, type 2 diabetes mellitus, atrial fibrillation on Xarelto. PAST SURGICAL HISTORY: Status post CABG, status post AVR, vasectomy, cholecystectomy, left lung surgery. FAMILY HISTORY: No significant family history. SOCIAL HISTORY: The patient [facility] in a [facility]. Denies smoking. There is no documented history of smoking, alcohol, or illegal drug use. REVIEW OF SYSTEMS: Unobtainable due to the patient's mental status. Vital Signs & Weight: Vital Signs (12 hours) Temp Pulse Resp BP Pulse Ox 07/16/20 08:15 97.7 F 75 23 H 166/108 H 98 07/16/20 03:55 97.4 F L 70 23 H 137/70 99 Weight Admit Weight 163 lb 2.273 oz Weight 163 lb 2.273 oz I&O: 0207/16/20 07/17/20 06:59 06:59 06:59 Intake Total 3367 Balance 3367 Additional Labs: Accuchecks 07/16/20 07/16/20 07/15/20 10:15 05:49 21:36 POC Glucose 181 H 192 H 232 H 07/15/20 17:15 POC Glucose 206 H Active Medications Generic Name Dose Route Start Last Admin Trade Name Freq PRN Reason Stop Dose Admin Acetaminophen 1,000 mg 07/12/20 14:09 07/12/20 22:00 Acetaminophen 500 Mg Tab PO 1,000 mg Q6H PRN Administration Moderate to Severe Pain (6-10) Aspirin 81 mg 07/12/20 09:00 07/16/20 09:38 Aspirin 81 Mg Enteric Coated Tablet PO Not Given DAILY ASHLY Atorvastatin Calcium 40 mg 07/11/20 21:00 07/15/20 21:31 Atorvastatin Calcium 40 Mg Tab PO Not Given HS ASHLY Cefepime HCl 2 gm/ Sodium 100 mls @ 200 mls/hr 07/12/20 11:00 07/15/20 21:31 Chloride IVPB 100 mls 1100,2300 ASHLY Administration Sodium Chloride 1,000 mls @ 75 mls/hr 07/11/20 17:00 07/16/20 09:37 Normal Saline 0.9% IV 1,000 mls .[id number] ASHLY Administration Metronidazole 500 mg/ Device 100 mls @ 100 mls/hr 07/12/20 08:00 07/16/20 09:38 IVPB 100 mls 0800,1600,2359 ASHLY Administration Vancomycin HCl 1.25 gm/ Device 250 mls @ 166.667 mls/hr 07/14/20 17:00 07/15/20 17:04 IVPB 250 mls 1700 ASHLY Administration Insulin Human Lispro 0 units 07/11/20 16:18 07/16/20 06:09 Humalog 300 Units/3 Ml Vial SC 2 unit .MILD SLIDING SCALE PRN Administration Mild Correctional Scale Insulin Human Lispro 0 units 07/11/20 16:18 07/15/20 22:06 Humalog 300 Units/3 Ml Vial SC 2 unit .BEDTIME SLIDING SC PRN Administration Bedtime Correctional Scale Metoprolol Tartrate 5 mg 07/14/20 11:33 07/15/20 21:31 Metoprolol Tartrate 5 Mg/5 Ml Vial IVP 5 mg Q6H PRN Administration SBP >140 Vital Signs (12 hours) Temp Pulse Resp BP Pulse Ox 07/16/20 08:15 97.7 F 75 23 H 166/108 H 98 07/16/20 03:55 97.4 F L 70 23 H 137/70 99 Weight Admit Weight 163 lb 2.273 oz Weight 163 lb 2.273 oz PHYSICAL EXAMINATION: GENERAL APPEARANCE: Ill-appearing. CVS: No murmurs, rubs, or gallops. NECK: Supple. ABDOMEN: Soft. EXTREMITIES: No clubbing, cyanosis, or edema. He does have right heel ulcer with surrounding edema. NEUROLOGICAL: Mental status, the patient is extremely somnolent. He does not open eyes to verbal stimuli. Does not follow commands. Does not maintain eye contact. Cranial nerves; pupils 4 mm, round and reactive to light. Face symmetric. Tongue midline. No roving eye movements or lateral gaze preference seen. Motor; minimal movement of all 4 extremities spontaneously seen. Sensory, withdraws to nailbed pressure bilaterally. Gait deferred due to patient's safety reasons. Cerebellar, could not be performed secondary to patient's mental status. DATA REVIEWED: I reviewed the labs, which were significant for increased BUN 37 and creatinine 1.37, hyperglycemia 221 on initial presentation. Active Medications Generic Name Dose Route Start Last Admin Trade Name Freq PRN Reason Stop Dose Admin Acetaminophen 1,000 mg 07/12/20 14:09 07/12/20 22:00 Acetaminophen 500 Mg Tab PO 1,000 mg Q6H PRN Administration Moderate to Severe Pain (6-10) Aspirin 81 mg 07/12/20 09:00 07/16/20 09:38 Aspirin 81 Mg Enteric Coated Tablet PO Not Given DAILY ASHLY Atorvastatin Calcium 40 mg 07/11/20 21:00 07/15/20 21:31 Atorvastatin Calcium 40 Mg Tab PO Not Given HS ASHLY Cefepime HCl 2 gm/ Sodium 100 mls @ 200 mls/hr 07/12/20 11:00 07/15/20 21:31 Chloride IVPB 100 mls 1100,2300 ASHLY Administration Sodium Chloride 1,000 mls @ 75 mls/hr 07/11/20 17:00 07/16/20 09:37 Normal Saline 0.9% IV 1,000 mls .[id number] AHSLY Administration Metronidazole 500 mg/ Device 100 mls @ 100 mls/hr 07/12/20 08:00 07/16/20 09:38 IVPB 100 mls 0800,1600,2359 ASHLY Administration Vancomycin HCl 1.25 gm/ Device 250 mls @ 166.667 mls/hr 07/14/20 17:00 07/15/20 17:04 IVPB 250 mls 1700 ASHLY Administration Insulin Human Lispro 0 units 07/11/20 16:18 07/16/20 06:09 Humalog 300 Units/3 Ml Vial SC 2 unit .MILD SLIDING SCALE PRN Administration Mild Correctional Scale Insulin Human Lispro 0 units 07/11/20 16:18 07/15/20 22:06 Humalog 300 Units/3 Ml Vial SC 2 unit .BEDTIME SLIDING SC PRN Administration Bedtime Correctional Scale Metoprolol Tartrate 5 mg 07/14/20 11:33 07/15/20 21:31 Metoprolol Tartrate 5 Mg/5 Ml Vial IVP 5 mg Q6H PRN Administration SBP >140 Hospitalist Exam Vitals: Vital Signs (12 hours) Temp Pulse Resp BP Pulse Ox 07/16/20 08:15 97.7 F 75 23 H 166/108 H 98 07/16/20 03:55 97.4 F L 70 23 H 137/70 99 Weight Admit Weight 163 lb 2.273 oz Weight 163 lb 2.273 oz ASSESSMENT AND PLAN: (1) Cellulitis Code(s): L03.90 - CELLULITIS, UNSPECIFIED Status: Acute (2) Atrial flutter Code(s): I48.92 - UNSPECIFIED ATRIAL FLUTTER Status: Acute (3) DM2 (diabetes mellitus, type 2) Status: Chronic Qualifiers: Diabetes mellitus half-way insulin use: with half-way use Diabetes mellitus complication status: with hypoglycemia - Plan (1) Cellulitis Code(s): L03.90 - CELLULITIS, UNSPECIFIED Status: Acute (2) Atrial flutter Code(s): I48.92 - UNSPECIFIED ATRIAL FLUTTER Status: Acute (3) DM2 (diabetes mellitus, type 2) Status: Chronic Qualifiers: Diabetes mellitus half-way insulin use: with half-way use Diabetes mellitus complication status: with hypoglycemia Mr. Danny Barnes is an 79-year-old male with medical history significant for congestive heart failure, coronary artery disease status post CABG, atrial fibrillation on Xarelto, aortic stenosis, status post AVR, type 2 diabetes mellitus, is a penitentiary resident, who presented with acute worsening of right heel diabetic ulcer with surrounding cellulitis and was admitted for sepsis management. However, since the last 2-3 days, he has waxing and waning mental status, which has worsen since this morning. Head CT reviewed, which was negative for acute intracranial pathology. Consider EEG to rule out cortical irritability. Neurochecks every 4 hours. Altered mental status seems to be multifactorial secondary to metabolic versus infectious etiology. Correct metabolic abnormalities. Continue medical management per primary team. We will continue to follow. Further recommendations will depend on the results of the testing. Plan discussed in detail with the patient's son at bedside. Thank you for the consult. Job ID: [id number] MTDD
[2020-07-16 16:28] LABS: Bilirubin Negative (Negative); Blood, Urine 2+ (Negative); Clarity Clear (Clear); Glucose, Urine (Dipstick) Normal (Negative); Ketone, Urine 10 mg/dL (Negative); Leukocyte Negative Leu/uL (Negative); Nitrite Negative (Negative); Protein, Urine (Dipstick) 70 mg/dL (Neg-Trace); Specific Gravity, Urine 1.015 (1.002-1.036); Squamous Epithelial 0-3 HPF (0-3); Urobilinogen Normal mg/dL (Less than 2); WBC/HPF 0-3 HPF (0-3); pH, Urine 5.5 (5.0-9.0)
[2020-07-16 16:30] LABS: Bacteria/HPF 1+ HPF (None Seen); Urine Culture Reflex Yes Yes
[2020-07-16 17:26] LABS: Vancomycin, Trough 23.2 ug/mL
[2020-07-16] MEDS: VANCOMYCIN 1.25 GM/250 ML BAG 1.25 GM in Premix Bag 1 BAG IVPB SCH (17:39)
[2020-07-16] MEDS ORDERED: Dextrose 50% Abboject 50 ML SYRINGE SLOW IVP PRN (17:50)
[2020-07-16] MEDS ORDERED: Dextrose 5% in Water 1,000 ML IV PRN (17:50)
--- NOTE | 2020-07-16 17:52 | PDOC.EEG ---
Neurology EEG Report - Report Report: This EEG was performed using 24 channel BView video EEG machine with 24 disc demarcus ctrodes. Digital analysis of the EEG was done for spike and seizure detection which revealed abnormalities. Background: The posterior background rhythm is not observed. Hyperventilation: Not performed. Photic Stimulation: No significant response. Sleep: No stage change is observed. Spells: None EEG Diagnosis: Generalized irregular sharply contoured delta waves of triphasic morphology seen during the recording. Absence of posterior background rhythm. Clinical Interpretation: This EEG is consistent with moderate generalized nonspecific cerebral dysfunction. Delta waves of triphasic morphology are seen with metabolic encephalopathies. Clinical correlation is advised.
[2020-07-16] MEDS ORDERED: Potassium Chloride 20 MEQ in Premix Bag 1 BAG IVPB SCH (18:30)
--- NOTE | 2020-07-16 20:37 | EKG ---
Test Reason : Blood Pressure : / mmHG Vent. Rate : 097 BPM Atrial Rate : 340 BPM P-R Int : 000 ms QRS Dur : 094 ms QT Int : 408 ms P-R-T Axes : 000 -12 -34 degrees QTc Int : 518 ms Atrial fibrillation with premature ventricular or aberrantly conducted complexes Low voltage QRS Possible Lateral infarct , age undetermined Anterior injury pattern ACUTE DE / STEMI Abnormal ECG Confirmed by EMILY SHETH, HAWK ([id number]), story editor DARNELL VALADEZ ([id number]) on 07/16/2020 8:37:23 PM Referred By: Confirmed By:HAWK DIAZ MD
[2020-07-16] MEDS: Atorvastatin Calcium 40 MG TAB PO SCH (21:06)
[2020-07-16] MEDS: D5W-AA 4.25% with LYTES 1,000 ML IV SCH (21:28)
[2020-07-16 22:37] LABS: Anion Gap 12 mmol/L (10-20); BUN (Urea Nitrogen) 27 mg/dL (8.4-25.7); Calc. Creatinine Clearance 53 mL/min (70-130); Carbon Dioxide 17 mmol/L (23-31); Chloride 122 mmol/L (98-107); Glucose 227 mg/dL (83-110); Magnesium 1.7 mg/dL (1.6-2.6); Potassium 3.3 mmol/L (3.5-5.1); Sodium 148 mmol/L (136-145)
[2020-07-17] MEDS: Piperacillin/Tazobactam 3.375 GM in Sodium Chloride 0.9% 100 ML IVPB SCH ×5 (00:32→23:44)
[2020-07-17] MEDS: HumaLOG 300 UNITS/3 ML VIAL SC PRN ×4 (00:32→18:36)
[2020-07-17 04:52] LABS: #Eosinphils 0.2 thou/uL (0.0-0.7); #Lymphocytes 1.3 thou/uL (1.20-3.40); #Monocytes 1.1 thou/uL (0.11-0.59); %Basophils 0.2 % (0.0-1.0); %Eosinophils 1.7 % (0.0-10.0); %Lymphocytes 10.8 % (21.0-51.0); %Monocytes 9.9 % (0.0-10.0); %Neutrophils 77.4 % (42.0-75.0); Mean Corpuscular HGB CONC 32.4 g/dL (32.0-36.0); Mean Corpuscular Hemoglobin 32.9 pg (27.0-31.0); Mean Platelet Volume 7.6 fL (7.4-10.4); Platelet Count 326 thou/uL (130-400); RBC Distribution Width 12.9 % (11.5-14.5); Red Blood Cell (RBC) Count 3.65 mill/uL (4.70-6.10); White Blood Cell (WBC) Count 11.6 thou/uL (4.8-10.8)
[2020-07-17 05:08] LABS: Anion Gap 10 mmol/L (10-20); BUN (Urea Nitrogen) 27 mg/dL (8.4-25.7); Calc. Creatinine Clearance 52 mL/min (70-130); Calcium 8.1 mg/dL (7.8-10.44); Carbon Dioxide 19 mmol/L (23-31); Chloride 121 mmol/L (98-107); Glucose 218 mg/dL (83-110); Potassium 3.4 mmol/L (3.5-5.1); Sodium 147 mmol/L (136-145)
[2020-07-17 05:10] LABS: Magnesium 1.7 mg/dL (1.6-2.6)
--- NOTE | 2020-07-17 08:32 | PDOC.HOSPP ---
- Subjective Encounter Date: 07/17/20 Subjective: remains confused and not very responsive - Objective Vital Signs & Weight: Vital Signs (12 hours) Temp Pulse Resp BP Pulse Ox 07/17/20 05:31 97.9 F 75 22 H 139/78 100 07/17/20 00:00 85 169/91 H Weight Admit Weight 163 lb 2.273 oz Weight 163 lb 2.273 oz I&O: 07/16/20 07/17/20 07/18/20 06:59 06:59 06:59 Intake Total 3367 1650 Balance 3367 1650 Result Diagrams: 07/17/20 04:25 07/17/20 04:25 Additional Labs: Accuchecks 07/17/20 07/16/20 07/16/20 06:18 23:34 16:31 POC Glucose 218 H 215 H 200 H 07/16/20 10:15 POC Glucose 181 H Hospitalist ROS - Medication Medications: Active Medications Generic Name Dose Route Start Last Admin Trade Name Freq PRN Reason Stop Dose Admin Acetaminophen 1,000 mg 07/12/20 14:09 07/12/20 22:00 Acetaminophen 500 Mg Tab PO 1,000 mg Q6H PRN Administration Moderate to Severe Pain (6-10) Aspirin 81 mg 07/12/20 09:00 07/16/20 09:38 Aspirin 81 Mg Enteric Coated Tablet PO Not Given DAILY ASHLY Atorvastatin Calcium 40 mg 07/11/20 21:00 07/16/20 21:06 Atorvastatin Calcium 40 Mg Tab PO Not Given HS ASHLY Amino Acids/Electrolytes/Dextrose 1,000 mls @ 41.667 mls/hr 07/16/20 18:00 07/16/20 21:28 Clinimix E 4.25/5 IV 1,000 mls 1800 ASHLY Administration Piperacillin Sod/Tazobactam 100 mls @ 200 mls/hr 07/16/20 23:59 07/17/20 05:32 Sod 3.375 gm/ Sodium Chloride IVPB 100 mls Q6HR ASHLY Administration Insulin Human Lispro 0 units 07/16/20 17:50 07/17/20 06:23 Humalog 300 Units/3 Ml Vial SC 3 units .MILD SLIDING SCALE PRN Administration Mild Correctional Scale Metoprolol Tartrate 5 mg 07/14/20 11:33 07/15/20 21:31 Metoprolol Tartrate 5 Mg/5 Ml Vial IVP 5 mg Q6H PRN Administration SBP >140 Hospitalist Exam Vitals: Vital Signs (12 hours) Temp Pulse Resp BP Pulse Ox 07/17/20 05:31 97.9 F 75 22 H 139/78 100 07/17/20 00:00 85 169/91 H Weight Admit Weight 163 lb 2.273 oz Weight 163 lb 2.273 oz General Appearance: ill appearing ENT: normocephalic atraumatic Neck: supple, symmetric Heart: RRR, no murmur, no gallops Respiratory: CTAB, no wheezes, no rales Gastrointestinal: soft, non-tender, non-distended Extremities: no cyanosis, no clubbing Hosp A/P (1) Cellulitis Code(s): L03.90 - CELLULITIS, UNSPECIFIED Status: Acute (2) Atrial flutter Code(s): I48.92 - UNSPECIFIED ATRIAL FLUTTER Status: Acute (3) DM2 (diabetes mellitus, type 2) Status: Chronic Qualifiers: Diabetes mellitus retirement insulin use: with retirement use Diabetes mellitus complication status: with hypoglycemia - Plan (1) Cellulitis Code(s): L03.90 - CELLULITIS, UNSPECIFIED Status: Acute (2) Atrial flutter Code(s): I48.92 - UNSPECIFIED ATRIAL FLUTTER Status: Acute (3) DM2 (diabetes mellitus, type 2) Status: Chronic Qualifiers: Diabetes mellitus manager terminal insulin use: with manager terminal use Diabetes mellitus complication status: with hypoglycemia Plan: Diabetes mellitus retirement insulin use: with manager terminal use Diabetes mellitus complication status: with hypoglycemia Plan: 79-year-old male with past medical history of CHF, coronary artery disease status post CABG, A. fib on Xarelto, aortic stenosis status post AVR, type 2 diabetes mellitus who is a senior care resident who presents with acute worsening of right heel diabetic ulcer with surrounding cellulitis found to be in mild sepsis on presentation. Cellulitis Patient with chronic diabetic ulcer to the right heel. Acute worsening with surrounding erythema and induration extending up to the ankle. Plain film revealed soft tissue swelling but no evidence of gas. Wound not probable to bone. WBC 18.2, patient is afebrile, but is mildly tachycardic to 95. Patient did receive vancomycin and cefepime in emergency room as well as a small fluid bolus. We will continue IV antibiotics and wound care. Given location and chronicity, will also check arterial dopplers to assess for peripheral vascular disease. Would with lots of slough tissue. General surgery took patient for surgical debridement and wound vac was placed. Pt tolerated procedure well. Plan IV abx vanc, cefepime, flagyl Arterial doppler to assess for PVD Wound cultures Wound care consult POD #1 Debridement and wound vac placement Sepsis without septic shock Patient meeting sepsis criteria with elevated lactic acid to 2.5, WBC 18.2 and tachycardia to 95. Sepsis secondary to cellulitis to right heel chronic diabetic ulcer. Patient receiving vancomycin and cefepime in emergency room as well as small fluid bolus. WBC uptrending this am to 22.4. Will add flagyl until wound cultures come back. We will continue IV antibiotics and plan as above. Plan IV antibiotics Gentle IV fluids Trend WBC, lactic acid, fever curve Follow blood, wound cultures NSTEMI Type II Patient with mildly elevated troponin to 0.042, 0.044, 0.066. Likely type II demand ischemia secondary to sepsis. Patient denies chest pain and EKG shows no ischemic changes. Plan -Telemetry monitoring Likely demand ischemia Acute kidney injury Patient with MARIA TERESA BUNs/CR 37/1.37, baseline creatinine approximately 1.0. Slightly improved to 1.25. Will continue gentle IVF. Plan Trend kidney function Gentle IV fluids Avoid nephrotoxic agents Renal dosing as appropriate Atrial fibrillation History of A. fib on Xarelto. EKG shows atrial fibrillation with controlled ventricular rate. Xarelto on hold for surgical debridement. Will continue at discretion of surgical team. Coronary artery disease History of CAD and CABG. We will continue home medications. No chest pain, troponin elevated likely demand ischemia, see NSTEMI plan as above. Type 2 diabetes mellitus History of type 2 diabetes mellitus. Was formally on insulin pump but on review of records appears this was discontinued. Will need to confirm patient's current insulin regimen. Will place on insulin sliding scale and ACHS glucose checks for now. Hypertension Continue home antihypertensives once dosages are confirmed Hyperlipidemia Continue home cholesterol medications once dosages are confirmed History of COVID-19 Patient was screened on admission for COVID-19 and found to be positive. Patient has already had and fully recovered from a prior COVID infection months ago. He is no longer infectious and precautions have been d/c. DVT prophylaxisXarelto on hold for procedure Presumed full codewe will need to confirm status with family and/or senior care plan for today 07/14 PT evaluated him for placement, seems that he requires SNF we resumed a soft mechanical diet. will monitor his mental status and touch base with his son at some point. awaiting his med rec to be done, son will bring the list. [facility] is still on hold. will add lopressor PRN for hypertension. plan for today 07/15 He remains not very oriented and does not follow command. his culture are back and results noted, we are awaiting sensitivities, until then we will continue his current antibiotherapy. although we called the facility and his son, we are still unable to verify his med rec. plan for today 07/16 less responsive today, labs indicating metatbolic acidosis, I will do a CT head stat, will do an ABG. son at the bedside. further management as per clinical results. addendum @ 8 pm an extensive workup was done today, his metabolic acidosis is still not expl ained, possibly due to a state of ketosis as his urine showed ketones. CT head did not show any bleeds, Neurology and Nephrology saw him, his EEG did not show any specific seizure activity. His son was present all day, I kept him updated with all the results, he is an MD, he requested a change in his ATB as the current regimen can cause encephalopathy, I will change to Zosyn. I will start him on PPN as well. plan for today 07/17 he remains the same, his phosphorus and K are low, I will replace and recheck. most likely metabolic encephalopathy due to his recent illness ( covid/srgery/infection ) I will touch base with his son when he comes. Further management as per his clinical course.
[2020-07-17] MEDS ORDERED: Potassium Phosphate 15 MMOL in Sodium Chloride 0.9% 250 ML 250 ML IVPB SCH (08:45)
[2020-07-17] MEDS ORDERED: Potassium Chloride 20 MEQ in Premix Bag 1 BAG IVPB SCH (09:00)
[2020-07-17] MEDS: Aspirin 81 mg Enteric Coated Tablet PO SCH (09:06)
--- NOTE | 2020-07-17 09:48 | CON ---
DATE OF CONSULTATION: REQUESTING PHYSICIAN: Jim Nunez MD REASON FOR CONSULTATION: Metabolic acidosis, hypernatremia. IMPRESSION: 1. Hypernatremia in the context of free water deficit. 2. Worsening metabolic acidosis in the context of possibly re-expansion acidosis. 3. Mental status change, query cause. 4. Hypokalemia. PLAN: 1. Address the hypokalemia, hypernatremia, and metabolic acidosis by placing this patient on hypotonic 5% dextrose water with some hypotonic concentration of sodium bicarbonate and potassium. 2. Discontinue normal saline, which is going to exacerbate the metabolic acidosis by acidosis. 3. Further management to be dependent on the clinical course. HISTORY OF PRESENT ILLNESS: History is that of an 79-year-old gentleman with history of congestive heart failure. The patient presented here with right heel pain, currently experiencing rise in sodium level, lower potassium, worsening metabolic acidosis, I felt the need for Renal consultation. Of note, according to the son, the patient's brother around this age also presented with similar neurologic changes prior to dying. PAST MEDICAL HISTORY: Significant for congestive heart failure, diastolic dysfunction, atrial fibrillation, aortic valve replacement, type 2 diabetes, and right eye blindness. SOCIAL HISTORY: No alcohol. No tobacco. No illicit drug use. FAMILY HISTORY: Not significantly related to present illness. REVIEW OF SYSTEMS: Could not be obtained from this patient due to mental status of this patient. PHYSICAL EXAMINATION: GENERAL: The patient was found with the eyes closed, constantly twitching around. VITAL SIGNS: Following vital signs; afebrile, temperature 98.1, pulse 52, respiratory rate of 17, and O2 saturation 100% with the blood pressure 172/93. HEENT: Unremarkable. CARDIOVASCULAR SYSTEM: First and second heart sounds were heard. RESPIRATORY SYSTEM: Clear to auscultation. DIGESTIVE SYSTEM: Revealed a benign abdomen with positive bowel sounds. EXTREMITIES: No peripheral edema. SKIN: No new gross rash. LYMPHATICS: No peripheral lymphadenopathy. SUMMARY: An 79-year-old gentleman, who presented here with right heel pain and also now experiencing some electrolyte and acid-base changes. Thank you for this consultation. We will follow with you. Job ID: [id number]
[2020-07-17] MEDS: Vancomycin 1 GM in Premix Bag 1 BAG IVPB SCH (18:11)
[2020-07-17] MEDS: Dextrose 5% in Water 1,000 ML IV SCH ×2 (18:12→19:10)
--- NOTE | 2020-07-17 18:26 | PRG ---
DATE OF SERVICE: 07/17/2020 SUBJECTIVE: The patient was seen, still not responding well with the following vital signs. OBJECTIVE: VITAL SIGNS: Afebrile, temperature 98.2, pulse 70, respiratory rate of 16, O2 saturation of 97%, blood pressure 137/53. HEENT: Unremarkable. CARDIOVASCULAR SYSTEM: First and second heart sounds were heard. RESPIRATORY SYSTEM: Clear to auscultation. DIGESTIVE SYSTEM: Revealed a benign abdomen. EXTREMITIES: No peripheral edema. SKIN: No new gross rash. LYMPHATICS: No peripheral lymphadenopathy. LABORATORY INVESTIGATION: Significant for sodium of 147, potassium 3.4. IMPRESSION: 1. Hypernatremia in the context of free water deficit. 2. Mild hypokalemia. 3. Mental status change, query cause. PLAN: 1. Replete the free water. 2. Replete the potassium. 3. Further management to be dependent on the clinical course. Job ID: [id number]
[2020-07-17] MEDS: Morphine 2 MG/ML VIAL SLOW IVP PRN (20:51)
[2020-07-17] MEDS: D5W-AA 4.25% with LYTES 1,000 ML IV SCH (21:32)
[2020-07-17] MEDS: Atorvastatin Calcium 40 MG TAB PO SCH (21:32)
[2020-07-17] MEDS: D5W AA 4.25% IV SCH (21:49)
[2020-07-17] MEDS: LYTES IV SCH (21:49)
[2020-07-17] MEDS: HUMULIN R IV SCH (21:49)
[2020-07-18] MEDS: HumaLOG 300 UNITS/3 ML VIAL SC PRN ×4 (00:21→17:24)
[2020-07-18] MEDS: Morphine 2 MG/ML VIAL SLOW IVP PRN ×2 (02:35→08:21)
[2020-07-18] MEDS: Piperacillin/Tazobactam 3.375 GM in Sodium Chloride 0.9% 100 ML IVPB SCH ×3 (05:40→16:39)
[2020-07-18 05:43] LABS: #Eosinphils 0.2 thou/uL (0.0-0.7); #Lymphocytes 1.4 thou/uL (1.20-3.40); #Monocytes 1.3 thou/uL (0.11-0.59); %Basophils 0.3 % (0.0-1.0); %Eosinophils 1.8 % (0.0-10.0); %Lymphocytes 11.9 % (21.0-51.0); %Monocytes 10.6 % (0.0-10.0); %Neutrophils 75.5 % (42.0-75.0); Mean Corpuscular HGB CONC 31.8 g/dL (32.0-36.0); Mean Corpuscular Hemoglobin 32.5 pg (27.0-31.0); Mean Platelet Volume 7.3 fL (7.4-10.4); Platelet Count 325 thou/uL (130-400); RBC Distribution Width 13.1 % (11.5-14.5); White Blood Cell (WBC) Count 11.9 thou/uL (4.8-10.8)
[2020-07-18 06:04] LABS: Anion Gap 14 mmol/L (10-20); BUN (Urea Nitrogen) 26 mg/dL (8.4-25.7); Calc. Creatinine Clearance 58 mL/min (70-130); Carbon Dioxide 16 mmol/L (23-31); Chloride 118 mmol/L (98-107); Glucose 248 mg/dL (83-110); Potassium 3.7 mmol/L (3.5-5.1)
[2020-07-18 06:08] LABS: Sodium 144 mmol/L (136-145)
[2020-07-18 06:09] LABS: Phosphorus 2.6 mg/dL (2.3-4.7)
[2020-07-18] MEDS: Aspirin 81 mg Enteric Coated Tablet PO SCH (08:23)
[2020-07-18] MEDS: Dextrose 5% in Water 1,000 ML IV SCH (11:18)
--- NOTE | 2020-07-18 11:37 | PRG ---
DATE OF SERVICE: 07/18/2020 I was asked to revisit with the patient because the night nurse felt his left foot was cool with poor Doppler signals. Since I last saw the patient last week, he has had his right heel debrided, and according to Dr. Wiggins who I spoke with this morning, the wound was looking good. Unfortunately, the patient has had deterioration in his mental status with some unresponsiveness this past week and prompting a brain CT scan as well as neurology consultation. This did not show any significant cerebral changes, although there was a question of some displacement of an intraocular lens or possible chronic retinal detachment. He was seen in consultation by Neurology, who felt the patient had metabolic encephalitis as well as nonspecific cerebral dysfunction. White count is stabilized at about 11,000 to 12,000, hemoglobin is 12, platelet counts unchanged. His creatinine is stable and does demonstrate some acidosis with a CO2 of 16 and it has been as low as 10 on the . He was seen by Dr. Beasley, who felt that his acidosis may have been related to hypernatremia/electrolyte disturbances. On examination today, the patient is resting comfortably, but when I lift up his leg, he screams, which is similar to his response when I examined him generally last week. His both feet are slightly pale. He has a reasonable Doppler signal in his left anterior tibial and left posterior tibial. He has no skin lesions on his left foot, although does have some little pressure petechiae in the left heel area, but no skin breakdown. His right foot is wrapped in Stephen bandage. Unfortunately, his legs have slipped off the pillows in the bed and again contacting the sheet. At this time, the patient has known peripheral vascular disease with no sequelae in the left foot and the right heel was healing well according to Dr. Wiggins and I do not think any intervention would be appropriate in this gentleman at this time. Job ID: [id number] [facility]
--- NOTE | 2020-07-18 12:49 | PRG ---
DATE OF SERVICE: 07/18/2020 Mr. Barnes is doing well today. His right foot wound, although large, is granulating. There is no active infection. He, however, is not compliant to keep his heels off the bed. So far, hospitalist has not been able to find heel protectors. I saw and visit with the patient with Wound Care and his wound VAC changed. Dr. Finnegan apparently was consulted about his left foot. The patient's left foot is without ulceration or heel injury. The patient has strongly Dopplerable pulses in left foot and right foot. There is no evidence of ischemia. The patient has had deteriorated mental status over the weekend, and apparently, a brain CAT scan ordered on 07/16/2020, two days ago, which was without acute findings. He has chronic ischemic changes, diffuse cerebral atrophy. I am sure the patient has pre-existing dementia. Mental status has deteriorated, probably being outside of his care facility and outside of his familiar surroundings. At this point, we would continue wound care. The patient can follow up in my office in 2 to 3 weeks. Heel protector should be obtained. I will see him as needed. The patient is ready to be discharged back to the care facility from my standpoint. Job ID: [id number]
--- NOTE | 2020-07-18 13:08 | PDOC.HOSPP ---
- Subjective Encounter Date: 07/18/20 Subjective: Continues to be confused and nonverbal. - Objective Vital Signs & Weight: Vital Signs (12 hours) Temp Pulse Resp BP BP Pulse Ox 07/18/20 11:07 98.6 F 65 16 139/74 98 07/18/20 06:51 96.6 F L 72 18 126/53 L 98 07/18/20 04:53 99 07/18/20 03:58 96.5 F L 55 L 20 126/69 100 Weight Admit Weight 163 lb 2.273 oz Weight 163 lb 2.273 oz I&O: 07/17/20 07/18/20 07/19/20 06:59 06:59 06:59 Intake Total 1650 1300 Balance 1650 1300 Result Diagrams: 07/18/20 05:30 07/18/20 05:30 Additional Labs: Accuchecks 07/18/20 07/18/20 07/17/20 11:07 06:10 23:35 POC Glucose 173 H 208 H 242 H Hospitalist ROS - Medication Medications: Active Medications Generic Name Dose Route Start Last Admin Trade Name Freq PRN Reason Stop Dose Admin Acetaminophen 1,000 mg 07/12/20 14:09 07/12/20 22:00 Acetaminophen 500 Mg Tab PO 1,000 mg Q6H PRN Administration Moderate to Severe Pain (6-10) Aspirin 81 mg 07/12/20 09:00 07/18/20 08:23 Aspirin 81 Mg Enteric Coated Tablet PO Not Given DAILY ASHLY Atorvastatin Calcium 40 mg 07/11/20 21:00 07/17/20 21:32 Atorvastatin Calcium 40 Mg Tab PO Not Given HS ASHLY Vancomycin HCl 1 gm/ Device 200 mls @ 200 mls/hr 07/17/20 17:00 07/17/20 18:11 IVPB 200 mls 1700 ASHLY Administration Piperacillin Sod/Tazobactam 100 mls @ 200 mls/hr 07/16/20 23:59 07/18/20 11:12 Sod 3.375 gm/ Sodium Chloride IVPB 100 mls Q6HR ASHLY Administration Dextrose/Water 1,000 mls @ 50 mls/hr 07/17/20 11:30 07/18/20 11:18 D5w IV 1,000 mls .Q20H ASHLY Administration Insulin Human Regular 10 units 1,000.1 mls @ 41.667 mls/hr 07/17/20 21:00 07/17/20 21:49 / Amino Acids/Electrolytes/ IV 1,000.1 mls Dextrose 2100 ASHLY Administration Insulin Human Lispro 0 units 07/16/20 17:50 07/18/20 11:09 Humalog 300 Units/3 Ml Vial SC 2 units .MILD SLIDING SCALE PRN Administration Mild Correctional Scale Insulin Human Lispro 0 units 07/18/20 00:00 07/18/20 00:21 Humalog 300 Units/3 Ml Vial SC 2 unit .BEDTIME SLIDING SC PRN Administration Bedtime Correctional Scale Metoprolol Tartrate 5 mg 07/14/20 11:33 07/15/20 21:31 Metoprolol Tartrate 5 Mg/5 Ml Vial IVP 5 mg Q6H PRN Administration SBP >140 Hospitalist Exam Vitals: Vital Signs (12 hours) Temp Pulse Resp BP BP Pulse Ox 07/18/20 11:07 98.6 F 65 16 139/74 98 07/18/20 06:51 96.6 F L 72 18 126/53 L 98 07/18/20 04:53 99 07/18/20 03:58 96.5 F L 55 L 20 126/69 100 Weight Admit Weight 163 lb 2.273 oz Weight 163 lb 2.273 oz General Appearance: NAD Eye: PERRL, anicteric sclera ENT: normocephalic atraumatic Neck: supple, symmetric Heart: RRR, no murmur, no gallops Respiratory: CTAB, no wheezes, no rales Gastrointestinal: soft, non-tender Hosp A/P (1) Cellulitis Code(s): L03.90 - CELLULITIS, UNSPECIFIED Status: Acute (2) Atrial flutter Code(s): I48.92 - UNSPECIFIED ATRIAL FLUTTER Status: Acute (3) DM2 (diabetes mellitus, type 2) Status: Chronic Qualifiers: Diabetes mellitus vermin exterminator insulin use: with vermin exterminator use Diabetes mellitus complication status: with hypoglycemia - Plan (1) Cellulitis Code(s): L03.90 - CELLULITIS, UNSPECIFIED Status: Acute (2) Atrial flutter Code(s): I48.92 - UNSPECIFIED ATRIAL FLUTTER Status: Acute (3) DM2 (diabetes mellitus, type 2) Status: Chronic Qualifiers: Diabetes mellitus vermin exterminator insulin use: with vermin exterminator use Diabetes mellitus complication status: with hypoglycemia Plan: Diabetes mellitus vermin exterminator insulin use: with custodial use Diabetes mellitus complication status: with hypoglycemia Plan: 79-year-old male with past medical history of CHF, coronary artery disease status post CABG, Alexia. fib on Xarelto, aortic stenosis status post AVR, type 2 diabetes mellitus who is a skilled nursing resident who presents with acute worsening of right heel diabetic ulcer with surrounding cellulitis found to be in mild sepsis on presentation. Cellulitis Patient with chronic diabetic ulcer to the right heel. Acute worsening with surrounding erythema and induration extending up to the ankle. Plain film revealed soft tissue swelling but no evidence of gas. Wound not probable to bone. WBC 18.2, patient is afebrile, but is mildly tachycardic to 95. Patient did receive vancomycin and cefepime in emergency room as well as a small fluid bolus. We will continue IV antibiotics and wound care. Given location and chronicity, will also check arterial dopplers to assess for peripheral vascular disease. Would with lots of slough tissue. General surgery took patient for surgical debridement and wound vac was placed. Pt tolerated procedure well. Plan IV abx vanc, cefepime, flagyl Arterial doppler to assess for PVD Wound cultures Wound care consult POD #1 Debridement and wound vac placement Sepsis without septic shock Patient meeting sepsis criteria with elevated lactic acid to 2.5, WBC 18.2 and tachycardia to 95. Sepsis secondary to cellulitis to right heel chronic diabetic ulcer. Patient receiving vancomycin and cefepime in emergency room as well as small fluid bolus. WBC uptrending this am to 22.4. Will add flagyl until wound cultures come back. We will continue IV antibiotics and plan as above. Plan IV antibiotics Gentle IV fluids Trend WBC, lactic acid, fever curve Follow blood, wound cultures NSTEMI Type II Patient with mildly elevated troponin to 0.042, 0.044, 0.066. Likely type II demand ischemia secondary to sepsis. Patient denies chest pain and EKG shows no ischemic changes. Plan -Telemetry monitoring Likely demand ischemia Acute kidney injury Patient with MARIA TERESA BUNs/CR 37/1.37, baseline creatinine approximately 1.0. Sl ightly improved to 1.25. Will continue gentle IVF. Plan Trend kidney function Gentle IV fluids Avoid nephrotoxic agents Renal dosing as appropriate Atrial fibrillation History of A. fib on Xarelto. EKG shows atrial fibrillation with controlled ventricular rate. Xarelto on hold for surgical debridement. Will continue at discretion of surgical team. Coronary artery disease History of CAD and CABG. We will continue home medications. No chest pain, troponin elevated likely demand ischemia, see NSTEMI plan as above. Type 2 diabetes mellitus History of type 2 diabetes mellitus. Was formally on insulin pump but on review of records appears this was discontinued. Will need to confirm patient's current insulin regimen. Will place on insulin sliding scale and ACHS glucose checks for now. Hypertension Continue home antihypertensives once dosages are confirmed Hyperlipidemia Continue home cholesterol medications once dosages are confirmed History of COVID-19 Patient was screened on admission for COVID-19 and found to be positive. Patient has already had and fully recovered from a prior COVID infection months ago. He is no longer infectious and precautions have been d/c. DVT prophylaxisXarelto on hold for procedure Presumed full codewe will need to confirm status with family and/or skilled nursing plan for today 07/14 PT evaluated him for placement, seems that he requires SNF we resumed a soft mechanical diet. will monitor his mental status and touch base with his son at some point. awaiting his med rec to be done, son will bring the list. Xarelto is still on hold. will add lopressor PRN for hypertension. plan for today 07/15 He remains not very oriented and does not follow command. his culture are back and results noted, we are awaiting sensitivities, until then we will continue his current antibiotherapy. although we called the facility and his son, we are still unable to verify his med rec. plan for today 07/16 less responsive today, labs indicating metatbolic acidosis, I will do a CT head stat, will do an ABG. son at the bedside. further management as per clinical results. addendum @ 8 pm an extensive workup was done today, his metabolic acidosis is still not explained, possibly due to a state of ketosis as his urine showed ketones. CT head did not show any bleeds, Neurology and Nephrology saw him, his EEG did not show any specific seizure activity. His son was present all day, I kept him updated with all the results, he is an MD, he requested a change in his ATB as the current regimen can cause encephalopathy, I will change to Zosyn. I will start him on PPN as well. plan for today 07/17 he remains the same, his phosphorus and K are low, I will replace and recheck. most likely metabolic encephalopathy due to his recent illness ( covid/srgery/infection ) I will touch base with his son when he comes. Further management as per his clinical course. Plan for today 07/18 I did speak with the son and from his standpoint his father mental status appeared to be a bit better he is less contracted. Overnight there was an impression that he has decreased pulse in his left lower extremity, vascular surgery did revisit and they decided this is due to peripheral vascular disease no intervention is needed. Patient continues to be on PPN. I will recheck his labs in the morning otherwis e I would continue with current antibiotic regimen.
[2020-07-18] MEDS: Vancomycin 1 GM in Premix Bag 1 BAG IVPB SCH (16:38)
--- NOTE | 2020-07-18 18:34 | PRG ---
DATE OF SERVICE: 07/18/2020 OBJECTIVE: VITAL SIGNS: The patient is noted with the following vital signs; afebrile, temperature 97.5, pulse 83, respiratory rate of 18, O2 saturations of 99%, blood pressure 138/89. HEENT: Unremarkable. CARDIOVASCULAR SYSTEM: First and second heart sounds were heard. RESPIRATORY SYSTEM: Clear to auscultation. DIGESTIVE SYSTEM: Revealed a benign abdomen. EXTREMITIES: No peripheral edema. SKIN: No new gross rash. LYMPHATICS: No peripheral lymphadenopathy. LABORATORY INVESTIGATION: Showed a sodium down to 144, bicarb of 16. IMPRESSION: 1. Hypernatremia, seems to be improved. 2. Metabolic acidosis. 3. Mental status change. PLAN: 1. We will continue current renal supportive measures. 2. Free water repletion to continue unless the sodium begins to down lower. 3. Further management to be dependent on the clinical course. Job ID: [id number]
[2020-07-18] MEDS: LYTES IV SCH (20:42)
[2020-07-18] MEDS: D5W AA 4.25% IV SCH (20:42)
[2020-07-18] MEDS: HUMULIN R IV SCH (20:42)
[2020-07-18] MEDS: Atorvastatin Calcium 40 MG TAB PO SCH (20:49)
[2020-07-19] MEDS: Piperacillin/Tazobactam 3.375 GM in Sodium Chloride 0.9% 100 ML IVPB SCH ×5 (00:10→23:30)
[2020-07-19] MEDS: Dextrose 5% in Water 1,000 ML IV SCH ×2 (03:30→10:56)
[2020-07-19] MEDS ORDERED: Acetaminophen 650 MG Suppository PR PRN (04:58)
[2020-07-19 05:07] LABS: #Eosinphils 0.3 thou/uL (0.0-0.7); #Lymphocytes 1.5 thou/uL (1.20-3.40); #Monocytes 1.1 thou/uL (0.11-0.59); #Neutrophils 9.8 thou/uL (1.40-6.50); %Basophils 0.1 % (0.0-1.0); %Eosinophils 2.7 % (0.0-10.0); %Lymphocytes 11.4 % (21.0-51.0); %Monocytes 8.9 % (0.0-10.0); %Neutrophils 76.9 % (42.0-75.0); Mean Corpuscular Hemoglobin 31.7 pg (27.0-31.0); Mean Platelet Volume 8.2 fL (7.4-10.4); Platelet Count 281 thou/uL (130-400); RBC Distribution Width 13.3 % (11.5-14.5); Red Blood Cell (RBC) Count 3.77 mill/uL (4.70-6.10); White Blood Cell (WBC) Count 12.7 thou/uL (4.8-10.8)
[2020-07-19 05:25] LABS: Anion Gap 13 mmol/L (10-20); BUN (Urea Nitrogen) 26 mg/dL (8.4-25.7); Calc. Creatinine Clearance 65 mL/min (70-130); Carbon Dioxide 18 mmol/L (23-31); Chloride 115 mmol/L (98-107); Glucose 184 mg/dL (83-110); Magnesium 1.5 mg/dL (1.6-2.6); Potassium 3.8 mmol/L (3.5-5.1); Sodium 142 mmol/L (136-145)
[2020-07-19] MEDS: HumaLOG 300 UNITS/3 ML VIAL SC PRN ×2 (05:58→18:01)
[2020-07-19] MEDS: Aspirin 81 mg Enteric Coated Tablet PO SCH (08:28)
--- NOTE | 2020-07-19 10:19 | PDOC.HOSPP ---
- Subjective Encounter Date: 07/19/20 Subjective: He appears more awake today - Objective Vital Signs & Weight: Vital Signs (12 hours) Temp Pulse Resp BP BP Pulse Ox 07/19/20 07:35 98.4 F 53 L 18 118/53 L 95 07/19/20 04:00 97.9 F 51 L 20 118/56 L 93 L 07/18/20 23:33 66 132/57 L 100 Weight Admit Weight 163 lb 2.273 oz Weight 163 lb 2.273 oz I&O: 07/18/20 07/19/20 07/20/20 06:59 06:59 06:59 Intake Total 1300 Balance 1300 Result Diagrams: 07/19/20 04:15 07/19/20 04:15 Additional Labs: Accuchecks 07/19/20 07/18/20 07/18/20 03:59 19:43 17:10 POC Glucose 180 H 172 H 181 H 07/18/20 11:07 POC Glucose 173 H Hospitalist ROS - Medication Medications: Active Medications Generic Name Dose Route Start Last Admin Trade Name Freq PRN Reason Stop Dose Admin Acetaminophen 650 mg 07/19/20 04:58 07/19/20 06:00 Acetaminophen 650 Mg Suppository NC 650 mg Q6H PRN Administration Headache/Fever/MILD Pain 1-3 Aspirin 81 mg 07/12/20 09:00 07/19/20 08:28 Aspirin 81 Mg Enteric Coated Tablet PO Not Given DAILY ASHLY Atorvastatin Calcium 40 mg 07/11/20 21:00 07/18/20 20:49 Atorvastatin Calcium 40 Mg Tab PO Not Given HS ASHLY Vancomycin HCl 1 gm/ Device 200 mls @ 200 mls/hr 07/17/20 17:00 07/18/20 16:38 IVPB 200 mls 1700 ASHLY Administration Piperacillin Sod/Tazobactam 100 mls @ 200 mls/hr 07/16/20 23:59 07/19/20 06:01 Sod 3.375 gm/ Sodium Chloride IVPB 100 mls Q6HR ASHLY Administration Dextrose/Water 1,000 mls @ 50 mls/hr 07/17/20 11:30 07/19/20 03:30 D5w IV 1,000 mls .Q20H ASHLY Administration Insulin Human Regular 10 units 1,000.1 mls @ 41.667 mls/hr 07/17/20 21:00 07/18/20 20:42 / Amino Acids/Electrolytes/ IV 1,000.1 mls Dextrose 2100 ASHLY Administration Insulin Human Lispro 0 units 07/16/20 17:50 07/19/20 05:58 Humalog 300 Units/3 Ml Vial SC 2 units .MILD SLIDING SCALE PRN Administration Mild Correctional Scale Insulin Human Lispro 0 units 07/18/20 00:00 07/18/20 00:21 Humalog 300 Units/3 Ml Vial SC 2 unit .BEDTIME SLIDING SC PRN Administration Bedtime Correctional Scale Metoprolol Tartrate 5 mg 07/14/20 11:33 07/15/20 21:31 Metoprolol Tartrate 5 Mg/5 Ml Vial IVP 5 mg Q6H PRN Administration SBP >140 Hospitalist Exam Vitals: Vital Signs (12 hours) Temp Pulse Resp BP BP Pulse Ox 07/19/20 07:35 98.4 F 53 L 18 118/53 L 95 07/19/20 04:00 97.9 F 51 L 20 118/56 L 93 L 07/18/20 23:33 66 132/57 L 100 Weight Admit Weight 163 lb 2.273 oz Weight 163 lb 2.273 oz General Appearance: NAD Eye: PERRL ENT: normocephalic atraumatic Neck: supple, symmetric Heart: RRR, no murmur, no gallops Respiratory: CTAB, no wheezes Gastrointestinal: soft, non-tender Hosp A/P (1) Cellulitis Code(s): L03.90 - CELLULITIS, UNSPECIFIED Status: Acute (2) Atrial flutter Code(s): I48.92 - UNSPECIFIED ATRIAL FLUTTER Status: Acute (3) DM2 (diabetes mellitus, type 2) Status: Chronic Qualifiers: Diabetes mellitus chcf insulin use: with terminal operations manager use Diabetes mellitus complication status: with hypoglycemia - Plan (1) Cellulitis Code(s): L03.90 - CELLULITIS, UNSPECIFIED Status: Acute (2) Atrial flutter Code(s): I48.92 - UNSPECIFIED ATRIAL FLUTTER Status: Acute (3) DM2 (diabetes mellitus, type 2) Status: Chronic Qualifiers: Diabetes mellitus terminal operations manager insulin use: with terminal operations manager use Diabetes mellitus complication status: with hypoglycemia Plan: Diabetes mellitus chcf insulin use: with chcf use Diabetes mellitus complication status: with hypoglycemia Plan: 79-year-old male with past medical history of CHF, coronary artery disease status post CABG, A. fib on Xarelto, aortic stenosis status post AVR, type 2 diabetes mellitus who is a [facility] who presents with acute worsening of right heel diabetic ulcer with surrounding cellulitis found to be in mild sepsis on presentation. Cellulitis Patient with chronic diabetic ulcer to the right heel. Acute worsening with surrounding erythema and induration extending up to the ankle. Plain film revealed soft tissue swelling but no evidence of gas. Wound not probable to bone. WBC 18.2, patient is afebrile, but is mildly tachycardic to 95. Patient did receive vancomycin and cefepime in emergency room as well as a small fluid bolus. We will continue IV antibiotics and wound care. Given location and chronicity, will also check arterial dopplers to assess for peripheral vascular disease. Would with lots of slough tissue. General surgery took patient for surgical debridement and wound vac was placed. Pt tolerated procedure well. Plan IV abx vanc, cefepime, flagyl Arterial doppler to assess for PVD Wound cultures Wound care consult POD #1 Debridement and wound vac placement Sepsis without septic shock Patient meeting sepsis criteria with elevated lactic acid to 2.5, WBC 18.2 and tachycardia to 95. Sepsis secondary to cellulitis to right heel chronic diabeti c ulcer. Patient receiving vancomycin and cefepime in emergency room as well as small fluid bolus. WBC uptrending this am to 22.4. Will add flagyl until wound cultures come back. We will continue IV antibiotics and plan as above. Plan IV antibiotics Gentle IV fluids Trend WBC, lactic acid, fever curve Follow blood, wound cultures NSTEMI Type II Patient with mildly elevated troponin to 0.042, 0.044, 0.066. Likely type II demand ischemia secondary to sepsis. Patient denies chest pain and EKG shows no ischemic changes. Plan -Telemetry monitoring Likely demand ischemia Acute kidney injury Patient with MARIA TERESA BUNs/CR 37/1.37, baseline creatinine approximately 1.0. Slightly improved to 1.25. Will continue gentle IVF. Plan Trend kidney function Gentle IV fluids Avoid nephrotoxic agents Renal dosing as appropriate Atrial fibrillation History of A. fib on Xarelto. EKG shows atrial fibrillation with controlled ventricular rate. Xarelto on hold for surgical debridement. Will continue at discretion of surgical team. Coronary artery disease History of CAD and CABG. We will continue home medications. No chest pain, troponin elevated likely demand ischemia, see NSTEMI plan as above. Type 2 diabetes mellitus History of type 2 diabetes mellitus. Was formally on insulin pump but on review of records appears this was discontinued. Will need to confirm patient's current insulin regimen. Will place on insulin sliding scale and ACHS glucose checks for now. Hypertension Continue home antihypertensives once dosages are confirmed Hyperlipidemia Continue home cholesterol medications once dosages are confirmed History of COVID-19 Patient was screened on admission for COVID-19 and found to be positive. Patient has already had and fully recovered from a prior COVID infection months ago. He is no longer infectious and precautions have been d/c. DVT prophylaxisXarelto on hold for procedure Presumed full codewe will need to confirm status with family and/or pen[facility]entiary plan for today 07/14 PT evaluated him for placement, seems that he requires SNF we resumed a soft mechanical diet. will monitor his mental status and touch base with his son at some point. awaiting his med rec to be done, son will bring the list. Xarelto is still on hold. will add lopressor PRN for hypertension. plan for today 07/15 He remains not very oriented and does not follow command. his culture are back and results noted, we are awaiting sensitivities, until then we will continue his current antibiotherapy. although we called the facility and his son, we are still unable to verify his med rec. plan for today 07/16 less responsive today, labs indicating metatbolic acidosis, I will do a CT head stat, will do an ABG. son at the bedside. further management as per clinical results. addendum @ 8 pm an extensive workup was done today, his metabolic acidosis is still not explained, possibly due to a state of ketosis as his urine showed ketones. CT head did not show any bleeds, Neurology and Nephrology saw him, his EEG did not show any specific seizure activity. His son was present all day, I kept him updated with all the results, he is an MD, he requested a change in his ATB as the current regimen can cause encephalopathy, I will change to Zosyn. I will start him on PPN as well. plan for today 07/17 he remains the same, his phosphorus and K are low, I will replace and recheck. most likely metabolic encephalopathy due to his recent illness ( covid/srgery/infection ) I will touch base with his son when he comes. Further management as per his clinical course. Plan for today 07/18 I did speak with the son and from his standpoint his father mental status appeared to be a bit better he is less contracted. Overnight there was an impression that he has decreased pulse in his left lower extremity, vascular surgery did revisit and they decided this is due to peripheral vascular disease no intervention is needed. Patient continues to be on PPN. I will recheck his labs in the morning otherwise I would continue with current antibiotic regimen. Plan for today 07/19 Today he appears to be better than yesterday, he opens his eyes he communicates he is verbal but remains confused. We will continue with PPN, will replace his electrolytes, will continue with antibiotics.
[2020-07-19] MEDS: Vancomycin 1 GM in Premix Bag 1 BAG IVPB SCH (16:16)
[2020-07-19 16:39] LABS: Vancomycin, Trough 22.2 ug/mL
[2020-07-19] MEDS: Admixture Fee 1 EACH in Dextrose 70% in Water 71.43 ML, Sterile Water Injection 645.24 ... IV SCH (17:58)
[2020-07-19] MEDS ORDERED: Vancomycin HCl 750 MG in Sodium Chloride 0.9% 250 ML 250 ML IVPB SCH (18:00)
--- NOTE | 2020-07-19 18:47 | PRG ---
DATE OF SERVICE: 07/19/2020 OBJECTIVE: VITAL SIGNS: The patient noted with the following vital signs. Afebrile, temperature 97.5, pulse , respiratory rate of 18, O2 saturations of 99%, and blood pressure . HEENT: Unremarkable. CARDIOVASCULAR SYSTEM: First and second heart sounds were heard. RESPIRATORY SYSTEM: Clear to auscultation. DIGESTIVE SYSTEM: Revealed a benign abdomen with positive bowel sounds. EXTREMITIES: No peripheral edema. SKIN: No new gross rash. LYMPHATICS: No peripheral lymphadenopathy. LABORATORY INVESTIGATION: Showed a sodium of 142, creatinine 0.95, and bicarb of 18. IMPRESSION: 1. Acute on chronic kidney disease, much improved. 2. Hyponatremia, resolved. 3. Mild metabolic acidosis. 4. Hypomagnesemia. PLAN: 1. Continue current renal supportive measures. 2. Start this patient on sodium bicarbonate supplementation. Job ID: [id number]
[2020-07-19] MEDS: Atorvastatin Calcium 40 MG TAB PO SCH (21:40)
[2020-07-19] MEDS: Vancomycin HCl 750 MG in Sodium Chloride 0.9% 250 ML 250 ML IVPB SCH (21:40)
[2020-07-19] MEDS: Sodium Bicarbonate Tab 325 MG TAB PO SCH (21:41)
[2020-07-20] MEDS: HumaLOG 300 UNITS/3 ML VIAL SC PRN ×5 (00:32→22:52)
[2020-07-20 03:46] LABS: #Eosinphils 0.3 thou/uL (0.0-0.7); #Lymphocytes 1.6 thou/uL (1.20-3.40); #Monocytes 1.2 thou/uL (0.11-0.59); %Eosinophils 2.4 % (0.0-10.0); %Lymphocytes 13.4 % (21.0-51.0); %Neutrophils 74.2 % (42.0-75.0); Hemoglobin 12.7 g/dL (14.0-18.0); Mean Corpuscular HGB CONC 31.8 g/dL (32.0-36.0); Mean Platelet Volume 7.4 fL (7.4-10.4); Platelet Count 266 thou/uL (130-400); RBC Distribution Width 13.7 % (11.5-14.5); Red Blood Cell (RBC) Count 3.84 mill/uL (4.70-6.10); White Blood Cell (WBC) Count 12.1 thou/uL (4.8-10.8)
[2020-07-20 04:02] LABS: Anion Gap 12 mmol/L (10-20); BUN (Urea Nitrogen) 31 mg/dL (8.4-25.7); Calc. Creatinine Clearance 56 mL/min (70-130); Calcium 7.7 mg/dL (7.8-10.44); Carbon Dioxide 18 mmol/L (23-31); Chloride 111 mmol/L (98-107); Glucose 298 mg/dL (83-110); Magnesium 1.7 mg/dL (1.6-2.6); Potassium 3.7 mmol/L (3.5-5.1); Sodium 137 mmol/L (136-145)
[2020-07-20] MEDS: Piperacillin/Tazobactam 3.375 GM in Sodium Chloride 0.9% 100 ML IVPB SCH ×3 (05:38→17:14)
[2020-07-20] MEDS: Aspirin 81 mg Enteric Coated Tablet PO SCH (08:33)
[2020-07-20] MEDS: Sodium Bicarbonate Tab 325 MG TAB PO SCH ×2 (08:34→22:51)
--- NOTE | 2020-07-20 13:33 | PDOC.HOSPP ---
- Subjective Encounter Date: 07/20/20 Encounter Time: 10:35 Subjective: Patient seen and examined. No new complaints. No overnight events - Objective Vital Signs & Weight: Vital Signs (12 hours) Temp Pulse Resp BP BP Pulse Ox 07/20/20 11:25 98.2 F 73 18 135/76 98 07/20/20 06:56 97.9 F 87 18 130/69 99 07/20/20 04:00 96.9 F L 73 16 125/57 L 99 Weight Admit Weight 163 lb 2.273 oz Weight 163 lb 2.273 oz I&O: 07/19/20 07/20/20 07/21/20 06:59 06:59 06:59 Intake Total 1120 Output Total 0 Balance 1120 Result Diagrams: 07/20/20 03:27 07/20/20 03:27 Additional Labs: Accuchecks 07/20/20 07/20/20 07/20/20 11:19 05:54 00:19 POC Glucose 315 H 309 H 271 H 07/19/20 17:59 POC Glucose 219 H Radiology Reviewed by me: Yes EKG Reviewed by me: Yes Hospitalist ROS - Review of Systems ROS unobtainable: due to mental status - Medication Medications: Active Medications Generic Name Dose Route Start Last Admin Trade Name Freq PRN Reason Stop Dose Admin Acetaminophen 650 mg 07/19/20 04:58 07/19/20 06:00 Acetaminophen 650 Mg Suppository DE 650 mg Q6H PRN Administration Headache/Fever/MILD Pain 1-3 Aspirin 81 mg 07/12/20 09:00 07/20/20 08:33 Aspirin 81 Mg Enteric Coated Tablet PO 81 mg DAILY ASHLY Administration Atorvastatin Calcium 40 mg 07/11/20 21:00 07/19/20 21:40 Atorvastatin Calcium 40 Mg Tab PO 40 mg HS ASHLY Administration Piperacillin Sod/Tazobactam 100 mls @ 200 mls/hr 07/16/20 23:59 07/20/20 11:29 Sod 3.375 gm/ Sodium Chloride IVPB 100 mls Q6HR ASHLY Administration Dextrose/Water 1,000 mls @ 50 mls/hr 07/17/20 11:30 07/19/20 10:56 D5w IV 1,000 mls .Q20H ASHLY Administration Miscellaneous Medication 1 1,000 mls @ 41.667 mls/hr 07/19/20 18:00 07/19/20 17:58 each/ Dextrose/Water/ Sterile IV 1,000 mls Water/ Amino Acids 1800 ASHLY Administration Vancomycin HCl 750 mg/ Sodium 250 mls @ 250 mls/hr 07/19/20 22:00 07/19/20 21:40 Chloride IVPB 250 mls 2200 ASHLY Administration Insulin Human Lispro 0 units 07/16/20 17:50 07/20/20 11:29 Humalog 300 Units/3 Ml Vial SC 5 units .MILD SLIDING SCALE PRN Administration Mild Correctional Scale Insulin Human Lispro 0 units 07/18/20 00:00 07/20/20 00:32 Humalog 300 Units/3 Ml Vial SC 3 unit .BEDTIME SLIDING SC PRN Administration Bedtime Correctional Scale Metoprolol Tartrate 5 mg 07/14/20 11:33 07/15/20 21:31 Metoprolol Tartrate 5 Mg/5 Ml Vial IVP 5 mg Q6H PRN Administration SBP >140 Sodium Bicarbonate 650 mg 07/19/20 21:00 07/20/20 08:34 Sodium Bicarbonate Tab 325 Mg Tab PO 650 mg BID ASHLY Administration Hospitalist Exam Vitals: Vital Signs (12 hours) Temp Pulse Resp BP BP Pulse Ox 07/20/20 11:25 98.2 F 73 18 135/76 98 07/20/20 06:56 97.9 F 87 18 130/69 99 07/20/20 04:00 96.9 F L 73 16 125/57 L 99 Weight Admit Weight 163 lb 2.273 oz Weight 163 lb 2.273 oz General Appearance: NAD, awake alert Eye: PERRL, anicteric sclera ENT: normocephalic atraumatic, no oropharyngeal lesions Neck: supple, symmetric, no JVD Heart: RRR, no murmur, no gallops, no rubs Respiratory: no wheezes, no rales, no ronchi Gastrointestinal: soft, non-tender, non-distended, normal bowel sounds Extremities: no cyanosis, no clubbing, no edema Extremities - other findings: Right foot covered with dressing with wound VAC Skin: normal turgor Neurological: no focal deficits Musculoskeletal: normal tone, normal strength Psychiatric: normal affect, normal behavior, not oriented Hosp A/P (1) Heel ulcer Code(s): L97.409 - NON-PRS CHRONIC ULCER OF UNSP HEEL AND MIDFOOT W UNSP SEVERT Status: Acute Qualifiers: Laterality: right (2) IBS (irritable bowel syndrome) Status: Chronic (3) Physical deconditioning Code(s): R53.81 - OTHER MALAISE Status: Chronic (4) Anemia of chronic disease Code(s): D63.8 - ANEMIA IN OTHER CHRONIC DISEASES CLASSIFIED ELSEWHERE Status: Chronic (5) CKD (chronic kidney disease) stage 2, GFR 60-89 ml/min Code(s): N18.2 - CHRONIC KIDNEY DISEASE, STAGE 2 (MILD) Status: Chronic (6) Carotid artery stenosis Code(s): I65.29 - OCCLUSION AND STENOSIS OF UNSPECIFIED CAROTID ARTERY Status: Chronic Qualifiers: (7) Coronary artery disease Code(s): I25.10 - ATHSCL HEART DISEASE OF [place] CORONARY ARTERY W/O ANG PCTRS Status: Chronic Qualifiers: (8) DM2 (diabetes mellitus, type 2) Status: Chronic Qualifiers: Diabetes mellitus salvage determiner insulin use: with half-way use Diabetes mellitus complication status: with hypoglycemia (9) H/O aortic valve replacement with porcine valve Code(s): Z95.3 - PRESENCE OF XENOGENIC HEART VALVE Status: Chronic (10) HLD (hyperlipidemia) Code(s): E78.5 - HYPERLIPIDEMIA, UNSPECIFIED Status: Chronic Qualifiers: Hyperlipidemia type: unspecified Qualified Code(s): E78.5 - Hyperlipidemia, unspecified (11) Paroxysmal atrial fibrillation Code(s): I48.0 - PAROXYSMAL ATRIAL FIBRILLATION Status: Chronic (12) Seizure disorder Code(s): G40.909 - EPILEPSY, UNSP, NOT INTRACTABLE, WITHOUT STATUS EPILEPTICUS Status: Chronic (13) MARIA TERESA (acute kidney injury) Code(s): N17.9 - ACUTE KIDNEY FAILURE, UNSPECIFIED Status: Resolved (14) Acute metabolic encephalopathy Code(s): G93.41 - METABOLIC ENCEPHALOPATHY Status: Resolved (15) Peripheral vascular disease Code(s): I73.9 - PERIPHERAL VASCULAR DISEASE, UNSPECIFIED Status: Chronic - Plan old records reviewed/req, continue antibiotics, social media analyst I discussed with the Dr. Charlton, on discharge will change to ciprofloxacin Augmentin for 1 month, Continue wound care with wound VAC Patient will need placement to snf home Medication reviewed and continue provide symptomatic and supportive care On discharge we will discontinue PPN which we are providing for nutritional support, after this bag we will not start any further
[2020-07-20] MEDS: Dextrose 5% in Water 1,000 ML IV SCH (17:30)
[2020-07-20] MEDS: Admixture Fee 1 EACH in Dextrose 70% in Water 71.43 ML, Sterile Water Injection 645.24 ... IV SCH (17:52)
[2020-07-20] MEDS: Vancomycin HCl 750 MG in Sodium Chloride 0.9% 250 ML 250 ML IVPB SCH (22:51)
[2020-07-20] MEDS: Atorvastatin Calcium 40 MG TAB PO SCH (22:51)
[2020-07-21] MEDS: Piperacillin/Tazobactam 3.375 GM in Sodium Chloride 0.9% 100 ML IVPB SCH ×5 (00:29→23:13)
[2020-07-21] MEDS: HumaLOG 300 UNITS/3 ML VIAL SC PRN ×4 (00:30→18:38)
--- NOTE | 2020-07-21 06:22 | PRG ---
DATE OF SERVICE: 07/20/2020 SUBJECTIVE: The patient is noted with the following vital signs. OBJECTIVE: VITAL SIGNS: Afebrile. Temperature 97.2, pulse 79, respiratory rate of 18, O2 saturations of 99%, blood pressure 146/69. HEENT: Unremarkable. CARDIOVASCULAR SYSTEM: First and second heart sounds were heard. RESPIRATORY SYSTEM: Clear to auscultation. DIGESTIVE SYSTEM: Revealed a benign abdomen. EXTREMITIES: No peripheral edema. SKIN: No new gross rash. LYMPHATICS: No peripheral lymphadenopathy. LABORATORY INVESTIGATION: Showed sodium of 137, BUN of 31 with creatinine of 1.11, bicarb of 18. IMPRESSION: 1. Metabolic acidosis. 2. Majsb-lt-[id number] kidney disease, much improved. 3. Hypernatremia, improved. PLAN: 1. Discontinue free water. Sodium has drifted down to 137. 2. Further management to be dependent on the clinical course. Job ID: [id number]
[2020-07-21] MEDS ORDERED: HumaLOG 300 UNITS/3 ML VIAL SC PRN (08:13)
[2020-07-21] MEDS ORDERED: Ondansetron ODT 4 MG TAB PO PRN (08:14)
[2020-07-21] MEDS ORDERED: Benzonatate 100 MG CAP PO PRN (08:14)
[2020-07-21] MEDS ORDERED: Senokot S 8.6-50 MG TAB PO PRN (08:14)
[2020-07-21] MEDS ORDERED: Ondansetron PF 4 MG/2 ML Vial IVP PRN (08:14)
[2020-07-21] MEDS ORDERED: hydrALAZINE 20 MG/ML VIAL SLOW IVP PRN (08:14)
[2020-07-21] MEDS ORDERED: Calcium Carbonate 500 MG ChewTAB PO PRN (08:14)
[2020-07-21] MEDS ORDERED: Bisacodyl 10 MG SUPP PR PRN (08:14)
[2020-07-21] MEDS ORDERED: Cepastat Lozenges 1 LOZ PO PRN (08:14)
[2020-07-21] MEDS ORDERED: GUAIFENESIN SF SOLN 200 MG/10 ML UDCUP PO PRN (08:14)
[2020-07-21] MEDS ORDERED: Sodium Chloride 0.65% Nasal 44 ML BOT EA NARE PRN (08:14)
[2020-07-21] MEDS ORDERED: Loperamide HCl 2 MG CAP PO PRN (08:14)
[2020-07-21] MEDS ORDERED: Albuterol 200 PUFF (6.7GM INHALER) INH PRN (08:27)
[2020-07-21 08:58] LABS: #Eosinphils 0.3 thou/uL (0.0-0.7); #Monocytes 0.9 thou/uL (0.11-0.59); #Neutrophils 7.6 thou/uL (1.40-6.50); %Basophils 0.1 % (0.0-1.0); %Eosinophils 2.5 % (0.0-10.0); %Lymphocytes 18.4 % (21.0-51.0); %Monocytes 8.5 % (0.0-10.0); %Neutrophils 70.6 % (42.0-75.0); Hemoglobin 11.8 g/dL (14.0-18.0); Mean Corpuscular HGB CONC 33.3 g/dL (32.0-36.0); Mean Corpuscular Hemoglobin 34.3 pg (27.0-31.0); Platelet Count 299 thou/uL (130-400); RBC Distribution Width 13.8 % (11.5-14.5); Red Blood Cell (RBC) Count 3.43 mill/uL (4.70-6.10); White Blood Cell (WBC) Count 10.7 thou/uL (4.8-10.8)
[2020-07-21] MEDS: Saccharomyces boulardii 250 MG CAP PO SCH (09:21)
[2020-07-21] MEDS: Cyanocobalamin (Vitamin B-12) 1,000 MCG TAB PO SCH (09:21)
[2020-07-21] MEDS: Sodium Bicarbonate Tab 325 MG TAB PO SCH ×2 (09:21→20:32)
[2020-07-21] MEDS: Multivitamin W/ Minerals 1 TAB PO SCH (09:21)
[2020-07-21] MEDS: Aspirin 81 mg Enteric Coated Tablet PO SCH (09:21)
[2020-07-21 09:22] LABS: ALT (SGPT) 49 U/L (8-55); AST (SGOT) 94 U/L (5-34); Albumin 2.1 g/dL (3.4-4.8); Alkaline Phosphatase 154 U/L (40-110); Anion Gap 15 mmol/L (10-20); BUN (Urea Nitrogen) 34 mg/dL (8.4-25.7); Bilirubin, Total 0.5 mg/dL (0.2-1.2); CRP (Inflammatory) 5.58 mg/dL (= or < 0.5); Calc. Creatinine Clearance 54 mL/min (70-130); Calcium 8.1 mg/dL (7.8-10.44); Carbon Dioxide 16 mmol/L (23-31); Chloride 111 mmol/L (98-107); Globulin 3.8 g/dL (2.4-3.5); Glucose 197 mg/dL (83-110); Potassium 4.2 mmol/L (3.5-5.1); Protein, Total 5.9 g/dL (5.8-8.1); Sodium 138 mmol/L (136-145)
[2020-07-21] MEDS: Folic Acid 1 MG TAB PO SCH (09:22)
[2020-07-21 12:37] VITALS: BMI 27.2
--- NOTE | 2020-07-21 12:43 | PDOC.HOSPP ---
- Subjective Encounter Date: 07/21/20 Encounter Time: 08:00 Subjective: Patient seen and examined. No new complaints. No overnight events - Objective Vital Signs & Weight: Vital Signs (12 hours) Temp Pulse Resp BP BP Pulse Ox 07/21/20 09:21 97 07/21/20 08:00 97.4 F L 71 12 140/66 97 07/21/20 03:49 98.9 F 58 L 20 144/72 H 99 Weight Admit Weight 163 lb 2.273 oz Weight 168 lb 9.6 oz I&O: 07/20/20 07/21/20 07/22/20 06:59 06:59 06:59 Intake Total 1360 Output Total 0 Balance 1360 Result Diagrams: 07/21/20 08:41 07/21/20 08:41 Additional Labs: Accuchecks 07/21/20 07/21/20 07/20/20 06:06 00:04 20:07 POC Glucose 170 H 315 H 284 H 07/20/20 17:00 POC Glucose 296 H Hospitalist ROS - Review of Systems ROS unobtainable: due to mental status - Medication Medications: Active Medications Generic Name Dose Route Start Last Admin Trade Name Freq PRN Reason Stop Dose Admin Acetaminophen 650 mg 07/19/20 04:58 07/19/20 06:00 Acetaminophen 650 Mg Suppository [place] 650 mg Q6H PRN Administration Headache/Fever/MILD Pain 1-3 Aspirin 81 mg 07/12/20 09:00 07/21/20 09:21 Aspirin 81 Mg Enteric Coated Tablet PO 81 mg DAILY ASHLY Administration Atorvastatin Calcium 40 mg 07/11/20 21:00 07/20/20 22:51 Atorvastatin Calcium 40 Mg Tab PO 40 mg HS ASHLY Administration Cyanocobalamin 1,000 mcg 07/21/20 09:00 07/21/20 09:21 Cyanocobalamin (Vitamin B-12) 1,000 Mcg Tab PO 1,000 mcg DAILY ASHLY Administration Folic Acid 1 mg 07/21/20 09:00 07/21/20 09:22 Folic Acid 1 Mg Tab PO 1 mg DAILY ASHLY Administration Piperacillin Sod/Tazobactam 100 mls @ 200 mls/hr 07/16/20 23:59 07/21/20 05:41 Sod 3.375 gm/ Sodium Chloride IVPB 100 mls Q6HR ASHLY Administration Miscellaneous Medication 1 1,000 mls @ 41.667 mls/hr 07/19/20 18:00 07/20/20 17:52 each/ Dextrose/Water/ Sterile IV 1,000 mls Water/ Amino Acids 1800 ASHLY Administration Vancomycin HCl 750 mg/ Sodium 250 mls @ 250 mls/hr 07/19/20 22:00 07/20/20 22:51 Chloride IVPB 250 mls 2200 ASHLY Administration Iron/Minerals/Multivitamins 1 tab 07/21/20 09:00 07/21/20 09:21 Multivitamin W/ Minerals 1 Tab PO 1 tab DAILY ASHLY Administration Metoprolol Tartrate 5 mg 07/14/20 11:33 07/15/20 21:31 Metoprolol Tartrate 5 Mg/5 Ml Vial IVP 5 mg Q6H PRN Administration SBP >140 Saccharomyces Boulardii 250 mg 07/21/20 09:00 07/21/20 09:21 Saccharomyces Boulardii 250 Mg Cap PO 250 mg DAILY ASHLY Administration Sodium Bicarbonate 650 mg 07/19/20 21:00 07/21/20 09:21 Sodium Bicarbonate Tab 325 Mg Tab PO 650 mg BID ASHLY Administration Hospitalist Exam Vitals: Vital Signs (12 hours) Temp Pulse Resp BP BP Pulse Ox 07/21/20 09:21 97 07/21/20 08:00 97.4 F L 71 12 140/66 97 07/21/20 03:49 98.9 F 58 L 20 144/72 H 99 Weight Admit Weight 163 lb 2.273 oz Weight 168 lb 9.6 oz General Appearance: NAD, awake alert Eye: PERRL, anicteric sclera ENT: normocephalic atraumatic, no oropharyngeal lesions Neck: supple, symmetric, no JVD, no thyromegaly Heart: RRR, no murmur, no gallops, no rubs Respiratory: no wheezes, no rales, no ronchi Gastrointestinal: soft, non-tender, non-distended, normal bowel sounds Extremities: no clubbing, no edema Extremities - other findings: Wound covered with a wound VAC on the right heel Skin: normal turgor, no lesions Neurological: no focal deficits Musculoskeletal: normal tone, normal strength Psychiatric: normal affect, normal behavior Hosp A/P (1) Heel ulcer Code(s): L97.409 - NON-PRS CHRONIC ULCER OF UNSP HEEL AND MIDFOOT W UNSP SEVERT Status: Acute Qualifiers: Laterality: right (2) IBS (irritable bowel syndrome) Status: Chronic (3) Physical deconditioning Code(s): R53.81 - OTHER MALAISE Status: Chronic (4) Anemia of chronic disease Code(s): D63.8 - ANEMIA IN OTHER CHRONIC DISEASES CLASSIFIED ELSEWHERE Status: Chronic (5) CKD (chronic kidney disease) stage 2, GFR 60-89 ml/min Code(s): N18.2 - CHRONIC KIDNEY DISEASE, STAGE 2 (MILD) Status: Chronic (6) Carotid artery stenosis Code(s): I65.29 - OCCLUSION AND STENOSIS OF UNSPECIFIED CAROTID ARTERY Status: Chronic Qualifiers: (7) Coronary artery disease Code(s): I25.10 - ATHSCL HEART DISEASE OF [place] CORONARY ARTERY W/O ANG PCTRS Status: Chronic Qualifiers: (8) DM2 (diabetes mellitus, type 2) Status: Chronic Qualifiers: Diabetes mellitus half-way insulin use: with half-way use Diabetes mellitus complication status: with hypoglycemia (9) H/O aortic valve replacement with porcine valve Code(s): Z95.3 - PRESENCE OF XENOGENIC HEART VALVE Status: Chronic (10) HLD (hyperlipidemia) Code(s): E78.5 - HYPERLIPIDEMIA, UNSPECIFIED Status: Chronic Qualifiers: Hyperlipidemia type: unspecified Qualified Code(s): E78.5 - Hyperlipidemia, unspecified (11) Paroxysmal atrial fibrillation Code(s): I48.0 - PAROXYSMAL ATRIAL FIBRILLATION Status: Chronic (12) Seizure disorder Code(s): G40.909 - EPILEPSY, UNSP, NOT INTRACTABLE, WITHOUT STATUS EPILEPTICUS Status: Chronic (13) MARIA TEREAS (acute kidney injury) Code(s): N17.9 - ACUTE KIDNEY FAILURE, UNSPECIFIED Status: Resolved (14) Acute metabolic encephalopathy Code(s): G93.41 - METABOLIC ENCEPHALOPATHY Status: Resolved (15) Peripheral vascular disease Code(s): I73.9 - PERIPHERAL VASCULAR DISEASE, UNSPECIFIED Status: Chronic - Plan old records reviewed/req, continue antibiotics, PT/OT, social services coordinator Patient will not need IV antibiotic therapy upon discharge, patient will be changed to Cipro and Augmentin for 1 month on discharge, Continue wound care with wound VAC, Discussed with the case management about need for [facility] home, Once arrangement completed and now we will discharge him anytime.
--- NOTE | 2020-07-21 15:58 | PRG ---
DATE OF SERVICE: 07/21/2020 OBJECTIVE: VITAL SIGNS:: The patient is noted with the following vital signs; afebrile, temperature 98.5, pulse 83, respiratory rate 16, blood pressure 168/97. HEENT: Unremarkable. CARDIOVASCULAR SYSTEM: First and second heart sounds were heard. RESPIRATORY SYSTEM: Clear to auscultation. DIGESTIVE SYSTEM: Revealed a benign abdomen with positive bowel sounds. EXTREMITIES: No peripheral edema. SKIN: No new gross rash. LYMPHATICS: No peripheral lymphadenopathy. IMPRESSION: 1. Hypernatremia, which has resolved. 2. Acute on chronic kidney disease. 3. Failure to thrive. PLAN: 1. We will continue current renal supportive measures. 2. Further management will be dependent on the clinical course. Job ID: [id number]
[2020-07-21] MEDS: Admixture Fee 1 EACH in Dextrose 70% in Water 71.43 ML, Sterile Water Injection 645.24 ... IV SCH (18:00)
[2020-07-21] MEDS: Atorvastatin Calcium 40 MG TAB PO SCH (20:32)
[2020-07-21 21:40] LABS: Vancomycin, Trough 27.9 ug/mL
[2020-07-21] MEDS: Vancomycin HCl 750 MG in Sodium Chloride 0.9% 250 ML 250 ML IVPB SCH (23:06)
[2020-07-22] MEDS: Piperacillin/Tazobactam 3.375 GM in Sodium Chloride 0.9% 100 ML IVPB SCH (05:07)
[2020-07-22] MEDS: HumaLOG 300 UNITS/3 ML VIAL SC PRN ×2 (07:19→13:19)
[2020-07-22] MEDS ORDERED: Ciprofloxacin 500 MG TAB PO SCH ×2 (09:15→20:00)
[2020-07-22 09:26] LABS: Vancomycin, Random 24.9 ug/mL (See Comment)
[2020-07-22] MEDS: Multivitamin W/ Minerals 1 TAB PO SCH (09:55)
[2020-07-22] MEDS: Aspirin 81 mg Enteric Coated Tablet PO SCH (09:55)
[2020-07-22] MEDS: Folic Acid 1 MG TAB PO SCH (09:55)
[2020-07-22] MEDS: Saccharomyces boulardii 250 MG CAP PO SCH (09:55)
[2020-07-22] MEDS: Cyanocobalamin (Vitamin B-12) 1,000 MCG TAB PO SCH (09:55)
[2020-07-22] MEDS: Sodium Bicarbonate Tab 325 MG TAB PO SCH (09:55)
[2020-07-22] MEDS ORDERED: Vancomycin HCl 500 MG in Sodium Chloride 0.9% 100 ML IVPB SCH (10:00)
--- NOTE | 2020-07-22 12:48 | PDOC.HOSPP ---
- Subjective Encounter Date: 07/22/20 Encounter Time: 10:15 Subjective: Patient seen and examined. No new complaints. No overnight events - Objective Vital Signs & Weight: Vital Signs (12 hours) Temp Pulse Resp BP Pulse Ox 07/22/20 08:00 97.8 F 78 16 136/98 H 100 07/22/20 04:00 97.9 F 77 18 144/89 H 93 L Weight Admit Weight 163 lb 2.273 oz Weight 175 lb 8 oz I&O: 07/21/20 07/22/20 07/23/20 06:59 06:59 06:59 Intake Total 1360 240 720 Output Total 0 Balance 1360 240 720 Result Diagrams: 07/21/20 08:41 07/21/20 08:41 Additional Labs: Accuchecks 07/22/20 07/22/20 07/21/20 10:52 05:23 23:17 POC Glucose 167 H 181 H 161 H 07/21/20 07/21/20 16:52 12:52 POC Glucose 239 H 279 H EKG Reviewed by me: Yes Hospitalist ROS - Review of Systems ENT: denies: ear pain, ear discharge, nose pain, nose discharge, nose congestion, mouth pain, mouth swelling, throat pain, throat swelling, other Respiratory: denies: cough, dry, shortness of breath, hemoptysis, SOB with excertion, pleuritic pain, sputum, wheezing, other Cardiovascular: denies: chest pain, palpitations, orthopnea, paroxysmal noc. dyspnea, edema, light headedness, other Gastrointestinal: denies: nausea, vomiting, abdominal pain, diarrhea, constipation, melena, hematochezia, other Genitourinary: denies: dysuria, frequency, incontinence, hematuria, retention, other - Medication Medications: Active Medications Generic Name Dose Route Start Last Admin Trade Name Freq PRN Reason Stop Dose Admin Acetaminophen 650 mg 07/19/20 04:58 07/19/20 06:00 Acetaminophen 650 Mg Suppository MD 650 mg Q6H PRN Administration Headache/Fever/MILD Pain 1-3 Aspirin 81 mg 07/12/20 09:00 07/22/20 09:55 Aspirin 81 Mg Enteric Coated Tablet PO 81 mg DAILY ASHLY Administration Atorvastatin Calcium 40 mg 07/11/20 21:00 07/21/20 20:32 Atorvastatin Calcium 40 Mg Tab PO 40 mg HS ASHLY Administration Benzonatate 100 mg 07/21/20 08:14 07/21/20 12:56 Benzonatate 100 Mg Cap PO 100 mg Q6H PRN Administration Cough Cyanocobalamin 1,000 mcg 07/21/20 09:00 07/22/20 09:55 Cyanocobalamin (Vitamin B-12) 1,000 Mcg Tab PO 1,000 mcg DAILY ASHLY Administration Folic Acid 1 mg 07/21/20 09:00 07/22/20 09:55 Folic Acid 1 Mg Tab PO 1 mg DAILY ASHLY Administration Insulin Human Lispro 0 units 07/21/20 08:13 07/22/20 07:19 Humalog 300 Units/3 Ml Vial SC 2 unit .MODERATE SLIDING SC PRN Administration Moderate Correctional Scale Iron/Minerals/Multivitamins 1 tab 07/21/20 09:00 07/22/20 09:55 Multivitamin W/ Minerals 1 Tab PO 1 tab DAILY ASHLY Administration Metoprolol Tartrate 5 mg 07/14/20 11:33 07/15/20 21:31 Metoprolol Tartrate 5 Mg/5 Ml Vial IVP 5 mg Q6H PRN Administration SBP >140 Saccharomyces Boulardii 250 mg 07/21/20 09:00 07/22/20 09:55 Saccharomyces Boulardii 250 Mg Cap PO 250 mg DAILY ASHLY Administration Sodium Bicarbonate 650 mg 07/19/20 21:00 07/22/20 09:55 Sodium Bicarbonate Tab 325 Mg Tab PO 650 mg BID ASHLY Administration Sodium Chloride 10 ml 07/11/20 16:18 07/22/20 10:01 Flush - Normal Saline 10 Ml Syringe IVF 10 ml PRN PRN Administration Saline Flush Hospitalist Exam Vitals: Vital Signs (12 hours) Temp Pulse Resp BP Pulse Ox 07/22/20 08:00 97.8 F 78 16 136/98 H 100 07/22/20 04:00 97.9 F 77 18 144/89 H 93 L Weight Admit Weight 163 lb 2.273 oz Weight 175 lb 8 oz General Appearance: NAD, awake alert Eye: PERRL, anicteric sclera ENT: normocephalic atraumatic, no oropharyngeal lesions Neck: supple, symmetric, no JVD Heart: RRR, no murmur, no gallops, no rubs Respiratory: no wheezes, no rales, no ronchi Gastrointestinal: soft, non-tender, non-distended, normal bowel sounds Extremities: no clubbing, no edema Extremities - other findings: Right foot covered with dressing with wound VAC Skin: normal turgor, no lesions Neurological: no focal deficits Musculoskeletal: normal tone, normal strength Psychiatric: normal affect, normal behavior Hosp A/P (1) Heel ulcer Code(s): L97.409 - NON-PRS CHRONIC ULCER OF UNSP HEEL AND MIDFOOT W UNSP SEVERT Status: Acute Qualifiers: Laterality: right (2) IBS (irritable bowel syndrome) Status: Chronic (3) Physical deconditioning Code(s): R53.81 - OTHER MALAISE Status: Chronic (4) Anemia of chronic disease Code(s): D63.8 - ANEMIA IN OTHER CHRONIC DISEASES CLASSIFIED ELSEWHERE Status: Chronic (5) CKD (chronic kidney disease) stage 2, GFR 60-89 ml/min Code(s): N18.2 - CHRONIC KIDNEY DISEASE, STAGE 2 (MILD) Status: Chronic (6) Carotid artery stenosis Code(s): I65.29 - OCCLUSION AND STENOSIS OF UNSPECIFIED CAROTID ARTERY Status: Chronic Qualifiers: (7) Coronary artery disease Code(s): I25.10 - ATHSCL HEART DISEASE OF [place] CORONARY ARTERY W/O ANG PCTRS Status: Chronic Qualifiers: (8) DM2 (diabetes mellitus, type 2) Status: Chronic Qualifiers: Diabetes mellitus long-term insulin use: with long-term use Diabetes mellitus complication status: with hypoglycemia (9) H/O aortic valve replacement with porcine valve Code(s): Z95.3 - PRESENCE OF XENOGENIC HEART VALVE Status: Chronic (10) HLD (hyperlipidemia) Code(s): E78.5 - HYPERLIPIDEMIA, UNSPECIFIED Status: Chronic Qualifiers: Hyperlipidemia type: unspecified Qualified Code(s): E78.5 - Hyperlipidemia, unspecified (11) Paroxysmal atrial fibrillation Code(s): I48.0 - PAROXYSMAL ATRIAL FIBRILLATION Status: Chronic (12) Seizure disorder Code(s): G40.909 - EPILEPSY, UNSP, NOT INTRACTABLE, WITHOUT STATUS EPILEPTICUS Status: Chronic (13) MARIA TERESA (acute kidney injury) Code(s): N17.9 - ACUTE KIDNEY FAILURE, UNSPECIFIED Status: Resolved (14) Acute metabolic encephalopathy Code(s): G93.41 - METABOLIC ENCEPHALOPATHY Status: Resolved (15) Peripheral vascular disease Code(s): I73.9 - PERIPHERAL VASCULAR DISEASE, UNSPECIFIED Status: Chronic - Plan old records reviewed/req, continue antibiotics, social work lecturer Today we will discontinue IV antibiotic therapy and change to Cipro and Augmentin Await placement Continue wound care with wound VAC Medication reviewed and continue to provide symptomatic and supportive care
--- NOTE | 2020-07-22 12:51 | PDOC.DS.DS ---
Provider Date of Admission: 07/11/20 16:47 Admitting Provider: Lalita Valdes MD Primary Care Physician: Luli Luciano MD Course Hospital Course: Mr. Barnes is an 79-year-old male with past medical history of CHF with EF of 45 to 50% and diastolic dysfunction, coronary artery disease status post CA, atrial fibrillation on Xarelto, status post aortic valve replacement, type 2 diabetes mellitus, right eye blindness who presents to the emergency room for right heel pain and worsening of right heel wound. Patient has a chronic ulcer to his heel which is being managed by wound care at his residential. The residential nurses were concerned for worsening redness extending up the ankle and brought him to the emergency room. Patient reports that he feels his foot ulcer has been worse over the past few months and then over the past few days he has developed severe pain in the right heel. Patient denies fever chills or night sweats. Denies shortness of breath, chest pain, abdominal pain. Denies numbness or paresthesias to his extremities. In emergency room initial vital signs 123/87, 94, 18, 98.6, 95% on room air. EKG showed atrial fibrillation with a ventricular rate of [address] changes. Initial troponin was 0.042, lactic acid 2.5, BBC 18.2, H/H 13.0/39.2. BUN/CR 37/1.37, sodium 137, potassium 4.8, glucose 221. AST/ALT 108/61, 260. Chest x- ray showed moderate left-sided pleural effusion stable from prior exam. Plain x-ray of the right foot showed soft tissue swelling but no evidence of gas. Patient received vancomycin, cefepime and 500 cc of normal saline in the emergency room. On admission patient had chest x-ray which showed moderate left pleural effusion with atelectasis versus infiltrate, ankle x-ray on the right side showed soft tissue swelling, patient had lower extremity ultrasound which showed significant bilateral runoff vessel disease, possible stenosis involving left saphenous femoral artery, Patient was evaluated by general surgery, patient was also evaluated by vascular surgery, On July 13, 2020 patient underwent debridement of right heel decubitus ulcer and subsequently all necrotic foul-smelling tissue was debrided and excised, subsequently wound VAC was applied, Patient also had acute kidney injury and Nephrology was following, patient was started on bicarbonate, his renal function improved, infectious disease team was also consulted and they recommended to change to Augmentin and Cipro on discharge, Patient had acute altered mental status and that is why CT brain was done which was negative for any acute intracranial process, patient needs nursing home home placement and with help of case management rn we are working on arranging nursing home home placement. While in hospital we noted that patient had COVID-19 positive but he was not having any symptoms and he was on room air, Patient seen and examined on the day of discharge. Resuscitation Status: 07/11/20 16:18 Resuscitation Status Routine Co-Sign Provider: Resuscitation Status: FULL: Full Resuscitation Discussed with: Presumed full code, awaiting confirmation from [place] Lab Results: 07/21/20 08:41 07/21/20 08:41 Abnormal Lab Results - Last 48 hrs 07/21/20 08:41: Chloride 111 H, Carbon Dioxide 16 L, BUN 34 H, AST 94 H, Alkaline Phosphatase 154 H, C-Reactive Protein 5.58 H, Albumin 2.1 L, Globulin 3.8 H, Albumin/Globulin Ratio 0.6 L 07/21/20 08:41: RBC 3.43 L, Hgb 11.8 L, Hct 35.4 L, MCV 103.0 H, MCH 34.3 H, MPV 7.0 L, Lymphocytes % 18.4 L, Neutrophils # 7.6 H, Monocytes # 0.9 H Microbiology - Entire Visit 07/16/20 16:30 Urine clean catch Urine Culture - Final NO GROWTH AT 48 HOURS 07/11/20 08:58 Heel - Right Bacterial Culture - Final Morganella morganii ssp ariana Escherichia coli Enterococcus faecalis 07/11/20 08:58 Heel - Right Anaerobic Culture - Final Anaerobic cocci Anaerobic Gram Negative Raffi Anaerobic Gram Negative Raffi#2 07/13/20 11:20 Foot - Swab Bacterial Culture - Final Morganella morganii ssp ariana Presumptive Escherichia coli Presumptive Enterococcus sp. 07/11/20 14:56 Venous blood - Right Arm Blood Culture - Final NO GROWTH IN 5 DAYS 07/11/20 13:20 Venous blood - Right Hand Blood Culture - Final NO GROWTH IN 5 DAYS 07/11/20 15:30 Urine voided Urine Culture - Final NO GROWTH AT 48 HOURS Vitals: Vital Signs (12 hours) Temp Pulse Resp BP Pulse Ox 07/22/20 08:00 97.8 F 78 16 136/98 H 100 07/22/20 04:00 97.9 F 77 18 144/89 H 93 L Weight Admit Weight 163 lb 2.273 oz Weight 175 lb 8 oz Physical Exam: The patient was seen and examined on the day of discharge. General Appearance: NAD, awake alert Eye: PERRL, anicteric sclera ENT: normocephalic atraumatic, no oropharyngeal lesions Neck: supple, symmetric, no JVD, no thyromegaly Respiratory: no wheezes, no rales, no ronchi Cardiovascular: no murmur, no gallops, no rubs Gastrointestinal: soft, non-tender, non-distended, normal bowel sounds Extremities: no cyanosis, no clubbing Extremities - other findings: Right foot with wound VAC Skin: normal turgor, no lesions Neurological: no focal deficits Musculoskeletal: normal tone, normal strength PSYCH: normal affect, normal behavior Problem (1) Heel ulcer Code(s): L97.409 - NON-PRS CHRONIC ULCER OF UNSP HEEL AND MIDFOOT W UNSP SEVERT Status: Acute Qualifiers: Laterality: right (2) IBS (irritable bowel syndrome) Status: Chronic (3) Physical deconditioning Code(s): R53.81 - OTHER MALAISE Status: Chronic (4) Anemia of chronic disease Code(s): D63.8 - ANEMIA IN OTHER CHRONIC DISEASES CLASSIFIED ELSEWHERE Status: Chronic (5) CKD (chronic kidney disease) stage 2, GFR 60-89 ml/min Code(s): N18.2 - CHRONIC KIDNEY DISEASE, STAGE 2 (MILD) Status: Chronic (6) Carotid artery stenosis Code(s): I65.29 - OCCLUSION AND STENOSIS OF UNSPECIFIED CAROTID ARTERY Status: Chronic Qualifiers: (7) Coronary artery disease Code(s): I25.10 - ATHSCL HEART DISEASE OF [place] CORONARY ARTERY W/O ANG PCTRS Status: Chronic Qualifiers: (8) DM2 (diabetes mellitus, type 2) Status: Chronic Qualifiers: Diabetes mellitus assisted insulin use: with assisted use Diabetes mellitus complication status: with hypoglycemia (9) H/O aortic valve replacement with porcine valve Code(s): Z95.3 - PRESENCE OF XENOGENIC HEART VALVE Status: Chronic (10) HLD (hyperlipidemia) Code(s): E78.5 - HYPERLIPIDEMIA, UNSPECIFIED Status: Chronic Qualifiers: Hyperlipidemia type: unspecified Qualified Code(s): E78.5 - Hyperlipidemia, unspecified (11) Paroxysmal atrial fibrillation Code(s): I48.0 - PAROXYSMAL ATRIAL FIBRILLATION Status: Chronic (12) Seizure disorder Code(s): G40.909 - EPILEPSY, UNSP, NOT INTRACTABLE, WITHOUT STATUS EPILEPTICUS Status: Chronic (13) MARIA TERESA (acute kidney injury) Code(s): N17.9 - ACUTE KIDNEY FAILURE, UNSPECIFIED Status: Resolved (14) Acute metabolic encephalopathy Code(s): G93.41 - METABOLIC ENCEPHALOPATHY Status: Resolved (15) Peripheral vascular disease Code(s): I73.9 - PERIPHERAL VASCULAR DISEASE, UNSPECIFIED Status: Chronic Plan Prescriptions: Amoxicillin/Potassium Clav [Augmentin] 1 tab PO Q12HR #60 tablet Ciprofloxacin [Cipro] 500 mg PO Q12HR #60 tab Home Medications: Medication Instructions Recorded Confirmed Type Aspirin [Thomas Chewable Aspirin] 81 mg PO HS 02/10/14 07/14/20 History Biotin 2,500 mcg PO HS 02/04/19 04/07/20 History Glucosamine HCl 500 mg PO HS 02/04/19 04/07/20 History HumaLOG [HumaLOG Vial] 0 unit SC ACHS 02/04/19 07/14/20 History Multivitamin With Minerals 1 tablet PO HS 02/04/19 04/07/20 History [Multiple Vitamin] Rivaroxaban [Xarelto] 15 mg PO HS 02/04/19 07/14/20 History Atorvastatin Calcium [Lipitor] 40 mg PO HS tab 03/02/19 07/14/20 Rx Docusate Sodium [Stool Softener] 250 mg PO DAILY PRN 05/02/19 04/07/20 History Magnesium Oxide 400 mg PO HS 05/02/19 07/14/20 History Ubidecarenone [CoQ-10] 100 mg PO HS 05/02/19 04/07/20 History Fludrocortisone Acetate [Florinef] 0.1 mg PO DAILY #30 tab 05/11/19 04/07/20 Rx Loperamide HCl [Loperamide] 2 mg PO ASDIR PRN #20 tablet 06/27/19 04/07/20 Rx Phenytoin Sodium Extended 300 mg PO HS #60 cap 06/27/19 04/07/20 Rx [Dilantin] Saccharomyces boulardii [Florastor] 250 mg PO DAILY cap 06/27/19 04/07/20 Rx Acetaminophen [Pain Relief] 325 mg PO PRN PRN 04/07/20 04/07/20 History Citalopram [CeleXA] 20 mg PO DAILY 04/07/20 04/07/20 History Ondansetron [Zofran ODT] 4 mg PO PRN PRN 04/07/20 04/07/20 History Acetaminophen [Tylenol Regular 650 mg PO Q4H PRN tab 04/11/20 Rx Strength] Ascorbic Acid [Vitamin C] 1,000 mg PO HS tab 04/11/20 Rx Cholecalciferol (Vitamin D3) 400 units PO HS tab 04/11/20 Rx [Vitamin D3] Ferrous Sulfate [Feosol] 325 mg PO QAM-WM tab 04/11/20 Rx Zinc Sulfate 220 mg PO HS cap 04/11/20 Rx Amoxicillin/Potassium Clav 1 tab PO Q12HR #60 tablet 07/20/20 Rx [Augmentin] Ciprofloxacin [Cipro] 500 mg PO Q12HR #60 tab 07/20/20 Rx Allergies: Sulfa (Sulfonamide Antibiotics) Allergy (Intermediate, Verified 08/29/19 22:01) PER HX REPORTED HE HAS ITCHINESS BEFORE WHEN HE HAD IT. amlodipine Allergy (Verified 08/29/19 22:01) carvedilol [From Coreg] Allergy (Verified 08/29/19 22:01) Orthostatic hypotension diphenhydramine [From Benadryl] Allergy (Verified 07/13/20 10:45) prednisone Allergy (Verified 08/29/19 22:01) PER HX Activity:: Activity as Tolerated Nourishment:: Diabetic Diet Therapies:: Occupational Therapy, Physical Therapy, Wound Care Equipment/Supplies:: Wound Care IV Therapy:: Not Applicable Referrals: Burak Wiggins MD [Active] - 3-4 Weeks Hugo Charlton MD [Active] - Luli Luciano MD [Primary Care Provider] - Disposition: [facility]ILITY Quality CORE MEASURES:: N/A
--- NOTE | 2020-07-22 15:38 | PRG ---
DATE OF SERVICE: 07/22/2020 OBJECTIVE: VITAL SIGNS: The patient noted with the following vital signs; afebrile, temperature 98.6, pulse 80, respiratory rate of 16, blood pressure . HEENT: Unremarkable. CARDIOVASCULAR SYSTEM: First and second heart sounds were heard. RESPIRATORY SYSTEM: Clear to auscultation. DIGESTIVE SYSTEM: Revealed a benign abdomen. EXTREMITIES: No peripheral edema. SKIN: No new gross rash. LYMPHATIC: No peripheral lymphadenopathy. IMPRESSION: 1. improved. 2. Acute on chronic kidney disease, much improved. PLAN: 1. Continue current management. 2. Further management to be dependent on the clinical course. Job ID: [id number]
[2020-07-22 16:59] VITALS: BP 141/78; TEMP 98.8
[2020-07-22] MEDS ORDERED: Amoxicillin/Potassium Clav 875 MG TAB PO SCH (21:00)
== END 2020-07-22 18:10 | DRG 853 ==
LOC: ERS 12:44 → ERHOLD 16:38 → OBSVTOIN 16:47 → 2NO 07-12 00:01
PROVIDERS: ADMIT Internal Medicine; ATTEND Internal Medicine
PROC: 0JBQ0ZZ Excision of Right Foot Subcutaneous Tissue and Fascia, Open Approach (ICD-10-PCS; principal; 2020-07-13)
DX: A41.51 Sepsis due to Escherichia coli [E. coli] (principal); I21.A1 Myocardial infarction type 2; G93.41 Metabolic encephalopathy; L97.419 Non-pressure chronic ulcer of right heel and midfoot with unspecified severity; I50.32 Chronic diastolic (congestive) heart failure; L03.115 Cellulitis of right lower limb; N17.9 Acute kidney failure, unspecified; E11.52 Type 2 diabetes mellitus with diabetic peripheral angiopathy with gangrene; I96 Gangrene, not elsewhere classified; L02.611 Cutaneous abscess of right foot; M86.171 Other acute osteomyelitis, right ankle and foot; E87.2 Acidosis; I48.92 Unspecified atrial flutter; E87.0 Hyperosmolality and hypernatremia; I13.0 Hypertensive heart and chronic kidney disease with heart failure and stage 1 through stage 4 chronic kidney disease, or unspecified chronic kidney disease; Z86.16 Personal history of COVID-19; E11.621 Type 2 diabetes mellitus with foot ulcer; I25.10 Atherosclerotic heart disease of native coronary artery without angina pectoris; H54.40 Blindness, one eye, unspecified eye; E78.5 Hyperlipidemia, unspecified; I25.2 Old myocardial infarction; Z88.2 Allergy status to sulfonamides; Z88.8 Allergy status to other drugs, medicaments and biological substances; Z79.82 Long term (current) use of aspirin; Z79.899 Other long term (current) drug therapy; Z95.2 Presence of prosthetic heart valve; Z79.01 Long term (current) use of anticoagulants; Z98.52 Vasectomy status; Z90.49 Acquired absence of other specified parts of digestive tract; I25.5 Ischemic cardiomyopathy; E11.69 Type 2 diabetes mellitus with other specified complication; A41.59 Other Gram-negative sepsis; G93.89 Other specified disorders of brain; E11.649 Type 2 diabetes mellitus with hypoglycemia without coma; E87.6 Hypokalemia; R62.7 Adult failure to thrive; Z68.28 Body mass index [BMI] 28.0-28.9, adult; K58.9 Irritable bowel syndrome, unspecified; D63.8 Anemia in other chronic diseases classified elsewhere; N18.2 Chronic kidney disease, stage 2 (mild); E11.22 Type 2 diabetes mellitus with diabetic chronic kidney disease; I65.29 Occlusion and stenosis of unspecified carotid artery; I48.0 Paroxysmal atrial fibrillation; G40.909 Epilepsy, unspecified, not intractable, without status epilepticus
CPT/HCPCS: 36415; 36416; 36600; 70450; 71045; 80048; 80053; 80202; 81001; 81003; 81015; 82140; 82553; 82805; 83605; 83735; 84100; 84484; 85025; 86140; 87040; 87070; 87077; 87086; 87186; 87205; 87635; 88304; 93005; 93923; 95816; 95819; 95957; 96365; 96367; A4217; J0692; J1815; J2270; J2543; J2704; J3010; J3370; J3475; J3480; J3490; J7050; U0003; U0005